=== PATIENT | male | born 1970 | race Caucasian/White ===

== ENCOUNTER 2020-04-26 17:38 | Emergency (ER) | payer BC, OTHER ==
--- NOTE | 2020-04-26 18:29 | RAD REPORT ---
EXAM DESCRIPTION: RAD - Chest Pa And Lat (2 Views) - 04/26/2020 6:21 pm CLINICAL HISTORY: DYSPNEA Chest pain. COMPARISON: No comparisons FINDINGS: The lungs are clear. The heart is normal in size. No displaced fractures. IMPRESSION: No acute or concerning finding suspected.
[2020-04-26] MEDS ORDERED: ALBUTEROL 2.5 MG/3 ML NEB SOL ONE (18:51)
--- NOTE | 2020-04-26 20:51 | ER ---
Nurse's Notes [facility] Name: Isiah Hightower Age: 49 yrs Sex: Male : 1970 Arrival Date: 04/26/2020 Time: 17:38 Bed 15 Private MD: Diagnosis: Respiratory conditions due to inhalation of chemicals, gases, fumes and vapors Presentation: 04/26 17:44 Chief complaint: Patient states: Poured sulfuric acid down a drain at 1700 today. He ll1 inhaled the substance. SOB and cough since. Coronavirus screen: Client denies travel out of the [place] in the last 14 days. At this time, the client does not indicate any symptoms associated with coronavirus-19. Ebola Screen: Patient denies travel to an Ebola-affected area in the 21 days before illness onset. Initial Sepsis Screen: Does the patient meet any 2 criteria? No. Patient's initial sepsis screen is negative. Risk Assessment: Do you want to hurt yourself or someone else? Patient reports no desire to harm self or others. Onset of symptoms was April 26, 2020. 17:44 Method Of Arrival: Ambulatory 1 17:44 Acuity: AMIRAH 3 ll1 19:51 Initial Sepsis Screen: Does the patient have a suspected source of infection? No. lp1 Patient's initial sepsis screen is negative. Historical: - Allergies: 17:46 Hydrocodone-Acetaminophen; ll1 - PSHx: 17:46 None; ll1 - Immunization history:: Flu vaccine is up to date. - Social history:: Smoking status: Patient denies any tobacco usage or history of. Patient/guardian denies using alcohol, street drugs, tobacco products. Screenin:47 Abuse screen: Denies threats or abuse. Nutritional screening: No deficits noted. tw2 Tuberculosis screening: No symptoms or risk factors identified. Fall Risk None identified. Assessment: 18:40 General: Appears in no apparent distress. well groomed, Behavior is calm, cooperative, tw2 appropriate for age. Pain: Denies pain. Neuro: Level of Consciousness is awake, alert, obeys commands, Oriented to person, place, time, situation. Cardiovascular: Heart tones S1 S2 Patient's skin is warm and dry. Rhythm is regular. Respiratory: Reports "its like a tickle down deeper than the back of my throat when i take a deep breath" Airway is patent Respiratory effort is even, unlabored, Respiratory pattern is regular, symmetrical, Breath sounds are clear bilaterally. GI: No signs and/or symptoms were reported involving the gastrointestinal system. Abdomen is flat, Bowel sounds present X 4 quads. : No signs and/or symptoms were reported regarding the genitourinary system. EENT: No signs and/or symptoms were reported regarding the EENT system. Derm: No signs and/or symptoms reported regarding the dermatologic system. Musculoskeletal: Range of motion: intact in all extremities. 19:15 Reassessment: Patient appears in no apparent distress at this time. Patient is alert, lp1 oriented x 3, equal unlabored respirations, skin warm/dry/pink. Patient states minimal tightness in chest with breathing Patient states feeling better. Respiratory: Respiratory effort is even, unlabored, Respiratory pattern is regular, Breath sounds are clear bilaterally. 21:08 Reassessment: Patient appears in no apparent distress at this time. Patient is alert, lp1 oriented x 3, equal unlabored respirations, skin warm/dry/pink. Patient denies pain at this time. Patient states feeling better. Patient states symptoms have improved. Vital Signs: 17:44 BP 157 / 88; Pulse 79; Resp 18; Temp 98.1; Pulse Ox 96% on R/A; Weight 108.86 kg; ll1 Height 6 ft. 1 in. (185.42 cm); Pain 4/10; 18:47 BP 139 / 80; Pulse 81; Resp 18; Pulse Ox 100% on Nebulizer Mask; tw2 19:15 BP 137 / 85; Pulse 85; Resp 18; Pulse Ox 97% on R/A; lp1 20:30 BP 133 / 82; Pulse 64; Resp 18; Pulse Ox 97% on R/A; lp1 17:44 Body Mass Index 31.66 (108.86 kg, 185.42 cm) ll1 ED Course: 17:38 Patient arrived in ED. ds1 17:46 Triage completed. ll1 17:46 Arm band placed on. ll1 18:02 Isamar Nguyen FNP-C [facility]. kb 18:02 Vinny Bragg MD is Attending Physician. kb 18:35 Ilana Young RN is Primary Nurse. tw2 18:35 Bed in low position. Call light in reach. Placed in gown. Pulse ox on. NIBP on. tw2 18:36 posion control contacted. Observation for 4 hours. Symptomatic treatment as needed (prn ll1 oxygen, breathing treatments, steroids). 19:00 Report given to ORTEGA Antony. tw2 19:51 No provider procedures requiring assistance completed. lp1 21:09 Patient did not have IV access during this emergency room visit. lp1 Administered Medications: 18:45 Drug: Albuterol 2.5 mg Route: Inhalation; tw2 Outcome: 20:50 Discharge ordered by . shirley 21:09 Discharged to home ambulatory. lp1 21:09 Condition: good 21:09 Discharge instructions given to patient, Instructed on discharge instructions, follow up and referral plans. Demonstrated understanding of instructions, follow-up care. 21:09 Patient left the ED. lp1 Signatures: Isamar Nguyen, RASPBERRY CHECKER-C RASPBERRY CHECKER-Jebb Margie Nickerson ds1 Cassia Ponce, RN RN lp1 Ilana Young RN RN tw2 Denise Marie RN RN ll1
--- NOTE | 2020-04-26 20:51 | EDPHYS ---
Physician Documentation [facility] Name: Isiah Hightower Age: 49 yrs Sex: Male : 1970 Arrival Date: 04/26/2020 Time: 17:38 Bed 15 Private MD: ED Physician Vinny Bragg HPI: 04/26 19:01 This 49 yrs old Male presents to ER via Ambulatory with complaints of kb Breathing Difficulty. 19:01 The patient has shortness of breath at rest. Onset: The symptoms/episode began/occurred kb at 17:00. Duration: The symptoms are continuous. The patient's shortness of breath has no apparent modifying factors. Associated signs and symptoms: Pertinent positives: chest pain. Severity of symptoms: At their worst the symptoms were moderate in the emergency department the symptoms are unchanged. The patient has not experienced similar symptoms in the past. The patient has not recently seen a physician. Pt states he poured out sulfuric acid and unintentionally inhaled the fumes. Has had cough, dyspnea and tightness since then. . Historical: - Allergies: 17:46 Hydrocodone-Acetaminophen; ll1 - PSHx: 17:46 None; ll1 - Immunization history:: Flu vaccine is up to date. - Social history:: Smoking status: Patient denies any tobacco usage or history of. Patient/guardian denies using alcohol, street drugs, tobacco products. ROS: 18:59 Constitutional: Negative for fever, chills, and weight loss, Neck: Negative for injury, kb pain, and swelling, Cardiovascular: Negative for chest pain, palpitations, and edema, Abdomen/GI: Negative for abdominal pain, nausea, vomiting, diarrhea, and constipation, Back: Negative for injury and pain, MS/Extremity: Negative for injury and deformity, Skin: Negative for injury, rash, and discoloration, Neuro: Negative for headache, weakness, numbness, tingling, and seizure. 18:59 Respiratory: Positive for cough, shortness of breath, Negative for dyspnea on exertion, hemoptysis, orthopnea, pleurisy, sputum production, wheezing. Exam: 18:59 Constitutional: This is a well developed, well nourished patient who is awake, alert, kb and in no acute distress. Head/Face: Normocephalic, atraumatic. Chest/axilla: Normal chest wall appearance and motion. Nontender with no deformity. No lesions are appreciated. Cardiovascular: Regular rate and rhythm with a normal S1 and S2. No gallops, murmurs, or rubs. Normal PMI, no JVD. No pulse deficits. Respiratory: Lungs have equal breath sounds bilaterally, clear to auscultation and percussion. No rales, rhonchi or wheezes noted. No increased work of breathing, no retractions or nasal flaring. Abdomen/GI: Soft, non-tender, with normal bowel sounds. No distension or tympany. No guarding or rebound. No evidence of tenderness throughout. Skin: Warm, dry with normal turgor. Normal color with no rashes, no lesions, and no evidence of cellulitis. MS/ Extremity: Pulses equal, no cyanosis. Neurovascular intact. Full, normal range of motion. Neuro: Awake and alert, GCS 15, oriented to person, place, time, and situation. Cranial nerves II-XII grossly intact. Motor strength 5/5 in all extremities. Sensory grossly intact. Cerebellar exam normal. Normal gait. Vital Signs: 17:44 BP 157 / 88; Pulse 79; Resp 18; Temp 98.1; Pulse Ox 96% on R/A; Weight 108.86 kg; ll1 Height 6 ft. 1 in. (185.42 cm); Pain 4/10; 18:47 BP 139 / 80; Pulse 81; Resp 18; Pulse Ox 100% on Nebulizer Mask; tw2 19:15 BP 137 / 85; Pulse 85; Resp 18; Pulse Ox 97% on R/A; lp1 20:30 BP 133 / 82; Pulse 64; Resp 18; Pulse Ox 97% on R/A; lp1 17:44 Body Mass Index 31.66 (108.86 kg, 185.42 cm) ll1 MDM: 18:34 Patient medically screened. kb 19:00 Data reviewed: vital signs, nurses notes. Data interpreted: Pulse oximetry: on room air kb is 100 %. Interpretation: normal. ED course: Poison control recommends obs for 4 hours and supplemental O2 as needed. . 19:55 Counseling: I had a detailed discussion with the patient and/or guardian regarding: the kb historical points, exam findings, and any diagnostic results supporting the discharge/admit diagnosis, radiology results, the need for outpatient follow up, a family practitioner, to return to the emergency department if symptoms worsen or persist or if there are any questions or concerns that arise at home. 04/26 18:03 Order name: Chest Pa And Lat (2 Views) XRAY kb 04/26 18:31 Order name: RAD; Complete Time: 18:32 EDMS 04/26 18:03 Order name: Misc. Order: contact poison control for recommendation; Complete Time: 18:35kb Administered Medications: 18:45 Drug: Albuterol 2.5 mg Route: Inhalation; tw2 Disposition: 04/27 07:55 Co-signature as Attending Physician, Vinny Bragg MD I agree with the assessment and kdr plan of care. Disposition: 04/26/20 20:50 Discharged to Home. Impression: Respiratory conditions due to inhalation of chemicals, gases, fumes and vapors. - Condition is Stable. - Discharge Instructions: Chemical Inhalation Injury, Adult. - Medication Reconciliation Form, Thank You Letter, Antibiotic Education, Prescription Opioid Use form. - Follow up: Emergency Department; When: As needed; Reason: Worsening of condition. Follow up: Private Physician; When: 2 - 3 days; Reason: Recheck today's complaints, Continuance of care, Re-evaluation by your physician. Signatures: Dispatcher [employer] EDMS Isamar Nguyen, ELECTRON GUN ASSEMBLER-C ELECTRON GUN ASSEMBLER-Vinny Rutherford MD MD kdr Cassia Ponce, RN RN lp1 Ilana Young RN RN tw2 Denise Marie, RN RN ll1 Corrections: (The following items were deleted from the chart) 04/26 21:09 20:50 04/26/2020 20:50 Discharged to Home. Impression: Respiratory conditions due to lp1 inhalation of chemicals, gases, fumes and vapors. Condition is Stable. Discharge Instructions: Chemical Inhalation Injury, Adult. Forms are Medication Reconciliation Form, Thank You Letter, Antibiotic Education, Prescription Opioid Use. Follow up: Emergency Department; When: As needed; Reason: Worsening of condition. Follow up: Private Physician; When: 2 - 3 days; Reason: Recheck today's complaints, Continuance of care, Re-evaluation by your physician. kb
[2020-04-26 21:18] VITALS: BP 133/82; TEMP 98.1; O2SAT 97
== END 2020-04-26 21:09 | disposition home or self-care (01) ==
LOC: ER 17:38
DX: R06.02 Shortness of breath (principal); T54.2X1A Toxic effect of corrosive acids and acid-like substances, accidental (unintentional), initial encounter; Z88.5 Allergy status to narcotic agent
CPT/HCPCS: 71046; 99284

== ENCOUNTER 2021-07-26 02:26 | Observation (INO) | payer OTHER ==
[2021-07-26] MEDS ORDERED: ASPIRIN 81 MG CHEWABLE TABLET ONE ×2 (02:41→02:45)
[2021-07-26] MEDS ORDERED: NA CHLORIDE 0.9% 1,000 ML ONE ×2 (02:42→02:45)
[2021-07-26] MEDS ORDERED: FAMOTIDINE 20 MG/2 ML VIAL IV ONE ×2 (02:42→02:45)
[2021-07-26] MEDS ORDERED: METOPROLOL TAR 25 MG TAB ONE (02:52)
[2021-07-26] MEDS ORDERED: ENOXAPARIN 100 MG/ML SYR SQ ONE (02:53)
[2021-07-26 03:00] LABS: Absolute Lymphocytes (CBC) 2.3 K/uL (0.7-4.9); Basophils % 0.8 % (0-1.3); Hematocrit 43.2 % (39.6-49.0); Lymphocytes % 31.1 % (15.3-44.8); RBC Red Blood Cell Count 4.73 M/uL (4.33-5.43)
[2021-07-26 03:07] LABS: Protime INR 0.99
[2021-07-26 03:14] LABS: ALT/SGPT 22 U/L (12-78); AST/SGOT 17 U/L (15-37); Albumin 3.9 g/dL (3.4-5.0); Alkaline Phosphatase 107 U/L (45-117); BUN Blood Urea Nitrogen 17 mg/dL (7-18); Bicarbonate 23 mmol/L (21-32); Bilirubin Direct < 0.1 mg/dL (0-0.2); Bilirubin Total 0.3 mg/dL (0.2-1.0); Glucose Level 104 mg/dL (74-106); Magnesium 2.2 mg/dL (1.8-2.4); NT PRO-BNP 41 pg/mL (<125); Potassium 3.7 mmol/L (3.5-5.1); Protein, Total 7.3 g/dL (6.4-8.2); Sodium Level 143 mmol/L (136-145); Troponin (Emerg Dept Use Only) < 0.02 ng/mL (0.0-0.045)
--- NOTE | 2021-07-26 03:17 | EDPHYS ---
Physician Documentation [facility] Name: Isiah Hightower Age: 50 yrs Sex: Male : 1970 Arrival Date: 07/26/2021 Time: 02:30 Bed 5 Private MD: CHANTEL Physician Todd Hayes HPI: 07/26 02:39 This 50 yrs old Male presents to ER via Unassigned with complaints of chest carlos pain, left sided. 02:39 The patient or guardian reports chest pain that is located primarily in the anterior carlos chest wall, left. Onset: this morning. The pain radiates to the left arm. Associated signs and symptoms: Pertinent positives: palpitations. The chest pain is described as a pressure. Duration: The patient or guardian reports multiple episodes, that are intermittent. Modifying factors: The symptoms are alleviated by nothing. the symptoms are aggravated by nothing. Severity of pain: At its worst the pain was mild in the emergency department the pain is unchanged. The patient has experienced similar episodes in the past, a few times. Historical: - Allergies: 02:43 Hydrocodone-Acetaminophen; lh3 - PMHx: 02:43 Chronic back pain; lh3 - PSHx: 02:43 None; lh3 - Immunization history:: Client reports receiving the 2nd dose of the Covid vaccine, Date received: October 2020. - Social history:: Smoking status: Patient denies any tobacco usage or history of. Patient/guardian denies using. - Family history:: not pertinent. ROS: 02:39 Constitutional: Negative for fever, chills, and weight loss, Eyes: Negative for injury, carlos pain, redness, and discharge, ENT: Negative for injury, pain, and discharge, Neck: Negative for injury, pain, and swelling, Respiratory: Negative for shortness of breath, cough, wheezing, and pleuritic chest pain, Abdomen/GI: Negative for abdominal pain, nausea, vomiting, diarrhea, and constipation, Back: Negative for injury and pain, : Negative for injury, bleeding, discharge, and swelling, MS/Extremity: Negative for injury and deformity, Skin: Negative for injury, rash, and discoloration, Neuro: Negative for headache, weakness, numbness, tingling, and seizure, Psych: Negative for depression, anxiety, suicide ideation, homicidal ideation, and hallucinations, Allergy/Immunology: Negative for hives, rash, and allergies, Endocrine: Negative for neck swelling, polydipsia, polyuria, polyphagia, and marked weight changes, Hematologic/Lymphatic: Negative for swollen nodes, abnormal bleeding, and unusual bruising. 02:39 Cardiovascular: Positive for chest pain. Exam: 02:39 Constitutional: This is a well developed, well nourished patient who is awake, alert, carlos and in no acute distress. Head/Face: Normocephalic, atraumatic. Eyes: Pupils equal round and reactive to light, extra-ocular motions intact. Lids and lashes normal. Conjunctiva and sclera are non-icteric and not injected. Cornea within normal limits. Periorbital areas with no swelling, redness, or edema. ENT: Nares patent. No nasal discharge, no septal abnormalities noted. Tympanic membranes are normal and external auditory canals are clear. Oropharynx with no redness, swelling, or masses, exudates, or evidence of obstruction, uvula midline. Mucous membranes moist. Neck: Trachea midline, no thyromegaly or masses palpated, and no cervical lymphadenopathy. Supple, full range of motion without nuchal rigidity, or vertebral point tenderness. No Meningismus. Chest/axilla: Normal chest wall appearance and motion. Nontender with no deformity. No lesions are appreciated. Cardiovascular: Regular rate and rhythm with a normal S1 and S2. No gallops, murmurs, or rubs. Normal PMI, no JVD. No pulse deficits. Respiratory: Lungs have equal breath sounds bilaterally, clear to auscultation and percussion. No rales, rhonchi or wheezes noted. No increased work of breathing, no retractions or nasal flaring. Abdomen/GI: Soft, non-tender, with normal bowel sounds. No distension or tympany. No guarding or rebound. No evidence of tenderness throughout. Back: No spinal tenderness. No costovertebral tenderness. Full range of motion. Skin: Warm, dry with normal turgor. Normal color with no rashes, no lesions, and no evidence of cellulitis. MS/ Extremity: Pulses equal, no cyanosis. Neurovascular intact. Full, normal range of motion. Neuro: Awake and alert, GCS 15, oriented to person, place, time, and situation. Cranial nerves II-XII grossly intact. Motor strength 5/5 in all extremities. Sensory grossly intact. Cerebellar exam normal. Normal gait. Psych: Awake, alert, with orientation to person, place and time. Behavior, mood, and affect are within normal limits. 02:39 Cardiovascular: Rate: normal, Rhythm: regular, Pulses: Pulses are 4+ in bilateral radial, brachial, femoral, popliteal, posterior tibial and and dorsalis pedis arteries.. Heart sounds: normal. 02:39 ECG was reviewed by the Attending Physician. Vital Signs: 02:40 BP 153 / 98; Pulse 75; Resp 15; Temp 97.5(O); Pulse Ox 99% on R/A; Weight 104.33 kg; lh3 Height 6 ft. 1 in. (185.42 cm); 03:45 BP 118 / 83; Pulse 68; Resp 18; Temp 98.0(O); Pulse Ox 98% on R/A; Pain 3/10; kc4 04:31 BP 124 / 86; Pulse 60; Resp 18; Temp 98.0(O); Pulse Ox 98% on R/A; Pain 0/10; kc4 02:40 Body Mass Index 30.34 (104.33 kg, 185.42 cm) lh3 MDM: 02:30 Patient medically screened. carlos 02:44 Differential diagnosis: abnormal EKG, coronary artery disease costochondritis, carlos gastroesophageal reflux disease (GERD), pancreatitis, pneumonia, pulmonary embolus, stable angina, unstable angina. HEART Score: History: Slightly Suspicious (0), ECG: Normal (0), Age: > 45 and < 65 years (1), Risk Factors: No Risk Factors Known (0), Troponin: < or = 1 x Normal Limit (0), Total Score = 1. The patient was given aspirin in the Emergency Department. The patient's deep vein thrombosis risk score was calculated as follows: Total Score: 0. This patient was found to be at low risk for a deep vein thrombosis by using the Well's assessment criteria. The patient's pulmonary embolism risk score was calculated as follows: Total Score: 0-2 points. This patient was found to be at low risk for a pulmonary embolism by using the Well's assessment criteria. NICK Risk Score: not applicable. Data reviewed: vital signs, nurses notes, lab test result(s), EKG, radiologic studies, CT scan. Data interpreted: area director: rate is 75 beats/min, rhythm is regular, Pulse oximetry: on room air. Test interpretation: by ED physician or midlevel provider: ECG, plain radiologic studies. Counseling: I had a detailed discussion with the patient and/or guardian regarding: the historical points, exam findings, and any diagnostic results supporting the discharge/admit diagnosis, lab results, radiology results, the need for further work-up and treatment in the hospital. 07/26 02:39 Order name: Basic Metabolic Panel [facility] 07/26 02:39 Order name: CBC with Diff; Complete Time: 03:14 [facility] 07/26 02:39 Order name: LFT's; Complete Time: 03:19 [facility] 07/26 02:39 Order name: Magnesium; Complete Time: 03:19 [facility] 07/26 02:39 Order name: NT PRO-BNP; Complete Time: 03:19 [facility] 07/26 02:39 Order name: PT-INR; Complete Time: 03:14 [facility] 07/26 02:39 Order name: Troponin (emerg Dept Use Only); Complete Time: 03:19 [facility] 07/26 02:39 Order name: XRAY Chest (1 view) [facility] 07/26 02:39 Order name: D-Dimer; Complete Time: 03:14 [facility] 07/26 02:39 Order name: Basic Metabolic Panel; Complete Time: 03:19 EDMS 07/26 03:19 Order name: CT Chest For PE Angio [facility] 07/26 02:39 Order name: EKG; Complete Time: 02:40 [facility] 07/26 02:39 Order name: Cardiac monitoring; Complete Time: 02:39 [facility] 07/26 02:39 Order name: EKG - Nurse/Tech; Complete Time: 02:40 [facility] 07/26 02:39 Order name: IV Saline Lock; Complete Time: 02:40 [facility] 07/26 02:39 Order name: Labs collected and sent; Complete Time: 02:40 [facility] 07/26 02:39 Order name: O2 Per Protocol; Complete Time: 02:40 [facility] 07/26 02:39 Order name: O2 Sat Monitoring; Complete Time: 02:40 [facility] 07/26 03:32 Order name: CONS Physician Consult EDMS EC:39 Rate is 73 beats/min. Rhythm is regular. QRS [place] is Normal. VT interval is normal. QRS carlos interval is normal. QT interval is normal. No Q waves. T waves are Normal. No ST changes noted. Clinical impression: NSR w/ Non-specific ST/T Changes, LVH, and No evidence of ischemia. Interpreted by me. Reviewed by me. Administered Medications: 02:49 Drug: Aspirin Chewable Tablet 324 mg Route: PO; kc4 04:33 Follow up: Response: No adverse reaction kc4 02:50 Drug: Pepcid (famotidine) 20 mg Route: IVP; Site: right hand; kc4 04:33 Follow up: Response: No adverse reaction kc4 02:50 Drug: NS 0.9% 1000 ml Route: IV; Rate: 125 ml/hr; Site: right hand; kc4 02:56 Drug: Lovenox (enoxaparin) 100 mg Route: Sub-Q; Site: abdomen; mr2 04:29 Follow up: Response: No adverse reaction kc4 02:57 Drug: Lopressor (metoprolol TARTRATE)) 25 mg Route: PO; mr2 04:30 Follow up: Response: No adverse reaction kc4 Disposition Summary: 07/26/21 03:16 Hospitalization Ordered Hospitalization Status: Observation carlos Provider: Wilton Wall cha Location: Telemetry/MedSurg (observation) carlos Condition: Stable carlos Problem: new carlos Symptoms: have improved carlos Bed/Room Type: Standard [facility] Room Assignment: 228(07/26/21 04:31) mw Diagnosis - Chest pain, unspecified carlos - Essential (primary) hypertension carlos - Palpitations carlos - Pulmonary embolism without acute cor pulmonale carlos Forms: - Medication Reconciliation Form carlos - SBAR form carlos Signatures: Dispatcher [employer] EDGavi De Guzman RN RN Todd Menon MD MD cha Hardee, Latisha, RN RN 3 Viviana Manuel 4 Jsoe Klein RN RN mr2 Corrections: (The following items were deleted from the chart) 04: 03:16 carlos sneed
--- NOTE | 2021-07-26 03:17 | ER ---
Nurse's Notes [facility] Name: Isiah Hightower Age: 50 yrs Sex: Male : 1970 Arrival Date: 07/26/2021 Time: 02:30 Bed 5 Private MD: Diagnosis: Chest pain, unspecified;Essential (primary) hypertension;Palpitations;Pulmonary embolism without acute cor pulmonale Presentation: 07/26 02:40 Chief complaint: EMS states: that patient was seen at [facility] yesterday for chest pain, lh3 and was not told anything. All lab work was negative 12 lead normal sinus and VSS. Patient has appointment with PCP today and watch inspector final movement next week. Coronavirus screen: Vaccine status: Patient reports receiving the 2nd dose of the covid vaccine. Date July 2021. Ebola Screen: Patient negative for fever greater than or equal to 101.5 degrees Fahrenheit, and additional compatible Ebola Virus Disease symptoms Patient denies exposure to infectious person. Patient denies travel to an Ebola-affected area in the 21 days before illness onset. No symptoms or risks identified at this time. Initial Sepsis Screen: Does the patient meet any 2 criteria? No. Patient's initial sepsis screen is negative. Does the patient have a suspected source of infection? No. Patient's initial sepsis screen is negative. Risk Assessment: Do you want to hurt yourself or someone else? Patient reports no desire to harm self or others. Onset of symptoms was July 26, 2021. Care prior to arrival: IV initiated. 20 GA, in the right hand. 02:40 Method Of Arrival: EMS lh3 02:40 Acuity: AMIRAH 3 lh3 Triage Assessment: 02:43 General: Appears in no apparent distress. Behavior is calm, cooperative, appropriate lh3 for age. Pain: Complains of pain in anterior aspect of left upper chest Pain does not radiate. Pain began 1 hour ago. Is continuous, Alleviated by. Historical: - Allergies: 02:43 Hydrocodone-Acetaminophen; lh3 - PMHx: 02:43 Chronic back pain; lh3 - PSHx: 02:43 None; lh3 - Immunization history:: Client reports receiving the 2nd dose of the Covid vaccine, Date received: October 2020. - Social history:: Smoking status: Patient denies any tobacco usage or history of. Patient/guardian denies using. - Family history:: not pertinent. Screenin:45 Abuse screen: Denies threats or abuse. Denies injuries from another. Nutritional 3 screening: No deficits noted. Tuberculosis screening: No symptoms or risk factors identified. Fall Risk IV access (20 points). Assessment: 02:45 General: Appears in no apparent distress. Behavior is calm, cooperative, appropriate lh3 for age, Smells of. Pain: Complains of pain in chest and anterior aspect of left upper chest Pain does not radiate. Pain level that patient reports is acceptable is 7 out of 10 on a pain scale. Vital Signs: 02:40 BP 153 / 98; Pulse 75; Resp 15; Temp 97.5(O); Pulse Ox 99% on R/A; Weight 104.33 kg; 3 Height 6 ft. 1 in. (185.42 cm); 03:45 BP 118 / 83; Pulse 68; Resp 18; Temp 98.0(O); Pulse Ox 98% on R/A; Pain 3/10; kc4 04:31 BP 124 / 86; Pulse 60; Resp 18; Temp 98.0(O); Pulse Ox 98% on R/A; Pain 0/10; kc4 02:40 Body Mass Index 30.34 (104.33 kg, 185.42 cm) [facility] ED Course: 02:30 Patient arrived in ED. carlos 02:30 Todd Hayes MD is Attending Physician. [facility] 02:39 Viviana Manuel is Primary Nurse. 4 02:43 Triage completed. 3 02:43 Arm band placed on right wrist. EKG completed in triage. Results shown to MD. 3 02:45 Patient has correct armband on for positive identification. Placed in gown. Bed in low lh3 position. Call light in reach. Side rails up X 1. Side rails up X2. Door closed. Noise minimized. Visitors limited. Warm blanket given. Verbal reassurance given. 02:45 No provider procedures requiring assistance completed. Maintain EMS IV. Dressing lh3 intact. Good blood return noted. Site clean \T\ dry. 02:51 Basic Metabolic Panel Sent. kc4 02:52 D-Dimer Sent. kc4 02:52 Basic Metabolic Panel Sent. kc4 02:52 XRAY Chest (1 view) Sent. kc4 02:52 CBC with Diff Sent. kc4 02:52 LFT's Sent. kc4 02:52 Magnesium Sent. kc4 02:52 NT PRO-BNP Sent. kc4 02:53 PT-INR Sent. kc4 02:53 Troponin (emerg Dept Use Only) Sent. kc4 03:15 Wilton Wall is Hospitalizing Provider. carlos 03:29 XRAY Chest (1 view) In Process Unspecified. EDMS 03:45 Inserted saline lock: 20 gauge in right antecubital area, using aseptic technique. kc4 04:44 Patient admitted, IV remains in place. kc4 05:22 Primary Nurse role handed off by Viviana Manuel tt3 Administered Medications: 02:49 Drug: Aspirin Chewable Tablet 324 mg Route: PO; kc4 04:33 Follow up: Response: No adverse reaction kc4 02:50 Drug: Pepcid (famotidine) 20 mg Route: IVP; Site: right hand; kc4 04:33 Follow up: Response: No adverse reaction kc4 02:50 Drug: NS 0.9% 1000 ml Route: IV; Rate: 125 ml/hr; Site: right hand; kc4 02:56 Drug: Lovenox (enoxaparin) 100 mg Route: Sub-Q; Site: abdomen; mr2 04:29 Follow up: Response: No adverse reaction kc4 02:57 Drug: Lopressor (metoprolol TARTRATE)) 25 mg Route: PO; mr2 04:30 Follow up: Response: No adverse reaction kc4 Outcome: 03:16 Decision to Hospitalize by Provider. carlos 04:43 Admitted to Med/surg accompanied by nurse, via stretcher, room 228, on monitor, with kc4 chart, Report called to Hoa VIVAS 04:43 Condition: stable 04:43 Instructed on the need for admit. 04:51 Patient left the ED. kc4 05:30 Patient left the ED. tt3 Signatures: Dispatcher [employer] EDMS Todd Hayes MD MD cha Trim, Tyler tt3 Katey Taylor, RN RN 3 Viviana Manuel kc4 Jose Klein RN RN mr2
--- NOTE | 2021-07-26 04:07 | P.HP ---
Certification for Inpatient Patient admitted to: Observation With expected LOS: <2 Midnights Patient will require the following post-hospital care: None Practitioner: I am a practitioner with admitting privileges, knowledge of patient current condition, hospital course, and medical plan of care. Services: Services provided to patient in accordance with Admission requirements found in Title 42 Section 412.3 of the Code of Federal Regulations Patient History Date of Service: 07/26/21 Reason for admission: chest pain History of Present Illness: Mr. Hightower is a 50 yo M who presents with 10/10 left sided chest pressure and tightness beginning today while in bed. Pain has now improved to 3/10. These episodes started last week and usually last for about an hour. Reports SOB, lightheadness, and vision changes. Denies nausea, vomiting, diaphoresis. Discharged from [facility] yesterday for chest pain rule out, scheduled to follow up with cardiology next week. Trop negative. Allergies hydrocodone [Hydrocodone] Allergy (Intermediate, Verified 10/07/12 06:39) Itching - Past Medical/Surgical History Past Medical History: Patient denies medical history Past Surgical History: Patient denies surgical history - Family History Family History: Reviewed- Non-Contributory - Social History Smoking Status: Never smoker Alcohol use: No CD- Drugs: No Caffeine use: Yes Place of Residence: Home Review of Systems 10-point ROS is otherwise unremarkable Respiratory: Shortness of Breath Cardiovascular: Chest Pain, Light Headedness Physical Examination - Physical Exam General: Alert, In no apparent distress HEENT: Atraumatic, PERRLA, Mucous membr. moist/pink, EOMI, Sclerae nonicteric Neck: Supple, 2+ carotid pulse no bruit, No LAD, Without JVD or thyroid abnormality Respiratory: Clear to auscultation bilaterally, Normal air movement Cardiovascular: Regular rate/rhythm, Normal S1 S2 Gastrointestinal: Normal bowel sounds, No tenderness Musculoskeletal: No tenderness Integumentary: No rashes Neurological: Normal gait, Normal speech, Normal strength at 5/5 x4 extr, Normal tone, Normal affect Lymphatics: No axilla or inguinal lymphadenopathy - Studies Laboratory Data (last 24 hrs) 07/26/21 02:39: PT 11.4, INR 0.99 07/26/21 02:39: WBC 7.60, Hgb 14.4, Hct 43.2, Plt Count 213 07/26/21 02:39: Sodium 143, Potassium 3.7, BUN 17, Creatinine 1.25, Glucose 104, Magnesium 2.2, Total Bilirubin 0.3, AST 17, ALT 22, Alkaline Phosphatase 107 Assessment and Plan - Problems (Diagnosis) (1) Chest pain Current Visit: Yes Status: Acute Qualifiers: Chest pain type: unspecified Qualified Code(s): R07.9 - Chest pain, unspecified - Plan cardiology consulted, on tele trend troponins, repeat ekg daily asa, beta mariana, statin, prn nitroglycerin and morphine thyroid and lipid panel pending monitor blood pressure, currently stable DVT ppx Discharge Plan: Home Plan to discharge in: 24 Hours - Advance Directives Does patient have a Living Will: No Does patient have a Durable POA for Healthcare: No - Code Status/Comfort Care Code Status Assessed: Yes (full code ) Critical Care: No Time Spent Managing Pts Care (In Minutes): 70
[2021-07-26 04:58] VITALS: BMI 30.3
[2021-07-26] MEDS ORDERED: HYDRALAZINE HCL 20 MG/ML VIAL IV PRN (05:11)
[2021-07-26] MEDS ORDERED: ONDANSETRON 4 MG/2 ML VIAL IV PRN (05:11)
[2021-07-26] MEDS ORDERED: ACETAMINOPHEN 500 MG TAB PO PRN (05:11)
[2021-07-26] MEDS ORDERED: POTASSIUM 25 MEQ EFFERV TAB PO ONE (05:47)
[2021-07-26 07:18] LABS: HDL Cholesterol 44 mg/dL (40-60); LDL Cholesterol, Calculated 90 (<130); Troponin I < 0.02 ng/mL (0.0-0.045)
--- NOTE | 2021-07-26 08:27 | RAD REPORT ---
EXAM DESCRIPTION: US - Extrem Venous W Compress Jeremy - 07/26/2021 6:02 am CLINICAL HISTORY: r/o DVT Bilateral leg edema and swelling. COMPARISON: No comparisons TECHNIQUE: Real-time sonographic interrogation of the left and right lower extremity deep venous sys tems was performed. FINDINGS: Normal compressibility, flow augmentation, phasic flow and spontaneous flow is identified in both the left and right lower extremity deep venous systems. IMPRESSION: No sonographic evidence of left or right lower extremity deep venous thrombosis.
--- NOTE | 2021-07-26 08:28 | RAD REPORT ---
EXAM DESCRIPTION: ADDENDUM #1 THIS REPORT CONTAINS FINDINGS THAT MAY BE CRITICAL TO PATIENT CARE: The findings were verbally discu ssed via telephone conference with MACIEL Mays 4:46 AM central time July 26, 2021. The resu lts were acknowledged and understood. Electronically signed by: Asmita Baig MD 07/26/2021 4:47 AM CDT End of Addendum EXAM: CT Angiography Chest With Intravenous Contrast CLINICAL HISTORY: The patient is 50 years old and is Male; CHEST PAIN TECHNIQUE: Axial computed tomographic angiography images of the chest with intravenous contrast. S agittal and coronal reformatted images were created and reviewed. This CT exam was performed using one or more of the following dose reduction techniques: automated exposure control, adjustment of t he mA and/or kV according to patient size, and/or use of iterative reconstruction technique. MIP re constructed images were created and reviewed. COMPARISON: No relevant prior studies available. FINDINGS: Pulmonary arteries: Small subsegmental PE anterior left upper lobe. Aorta: No acute findings. No thoracic aortic aneurysm. Lungs: No pulmonary consolidation or groundglass opacities to suggest pneumonia. Pleural space: No pleural effusion or pneumothorax. Heart: Unremarkable. No cardiomegaly. No significant pericardial effusion. No evidence of RV dysfunction. Bones/joints: No acute fracture visualized. No dislocation. Soft tissues: Unremarkable. Lymph nodes: Unremarkable. No enlarged lymph nodes. IMPRESSION: Small subsegmental PE anterior left upper lobe. Electronically signed by: Asmita Baig MD 07/26/2021 4:39 AM CDT Due to temporary technical issues with the PACS/Fluency reporting system, reports are being signed by the in house radiologist without review as a courtesy to ensure prompt reporting. The interpreting r adiologist is fully responsible for the content of the report.
--- NOTE | 2021-07-26 08:34 | RAD REPORT ---
EXAM DESCRIPTION: RAD - Chest Single View - 07/26/2021 3:29 am CLINICAL HISTORY: CHEST PAIN Chest pain. COMPARISON: Chest Pa And Lat (2 Views) dated 04/26/2020 FINDINGS: Portable technique limits examination quality. The lungs are grossly clear. The heart is normal in size. No displaced fractures. IMPRESSION: No acute intrathoracic process suspected.
[2021-07-26] MEDS: APIXABAN 5 MG TABLET PO SCH ×2 (14:42→20:04)
--- NOTE | 2021-07-26 15:42 | P.PN ---
Date of Service: 07/26/21 Patient seen and examined. Patient is complaining of intermittent chest pressure/chest pain. Troponin trended negative. EKG unremarkable. I ordered a treadmill stress test but I was told there was no staff available for that stress test. Repeat troponin and EKG. Cardiology consult. Continue Eliquis for newly diagnosed PE.
[2021-07-27 06:14] LABS: Potassium 4.2 mmol/L (3.5-5.1)
[2021-07-27] MEDS: APIXABAN 5 MG TABLET PO SCH (09:23)
[2021-07-27 09:55] VITALS: O2SAT 96
[2021-07-27 11:54] VITALS: BP 142/75; TEMP 98.6
--- NOTE | 2021-07-27 12:58 | P.DS ---
Admission Date: 07/26/21 Discharge Date: 07/27/21 Disposition: ROUTINE DISCHARGE Discharge Condition: FAIR Reason for Admission: chest pain - Problems (1) Pulmonary embolism Status: Acute (2) Essential hypertension Status: Acute (3) LV hypertrophy, hypertensive Status: Acute (4) Chest pain Status: Acute Qualifiers: Chest pain type: unspecified Qualified Code(s): R07.9 - Chest pain, unspecified Brief History of Present Illness: Mr. Hightower is a 50 yo M who presents with 10/10 left sided chest pressure and tightness beginning today while in bed. Pain has now improved to 3/10. These episodes started last week and usually last for about an hour. Reports SOB, lightheadness, and vision changes. Denies nausea, vomiting, diaphoresis. Discharged from [facility] yesterday for chest pain rule out, scheduled to follow up with cardiology next week. Trop negative. Hospital Course: Patient placed in the observation. Troponin trended x 4 negative. CTPA demonstrated pulmonary embolism which could explain patient's symptoms. Patient had another episode of chest pressure during the hospital stay, repeat EKG and troponin all unremarkable. EKG does demonstrate LVH. Seen by cardiology. He has outpatient follow-up with Dr. Hernandez coming week. ACS ruled out. Dr. Hernandez has been informed about patient's follow up. He may need stress test as an outpatient. Patient deemed clinically stable for discharge. He is discharged with Abigail Gonzalez for acute pulmonary embolism. Vital Signs/Physical Exam: Temp Pulse Resp BP Pulse Ox 98.6 F 69 18 142/75 H 95 07/27/21 11:53 07/27/21 11:53 07/27/21 11:53 07/27/21 11:53 07/27/21 11:53 General: Alert, In no apparent distress, Oriented x3 HEENT: Mucous membr. moist/pink Neck: JVD not distended Respiratory: Clear to auscultation bilaterally, Normal air movement Cardiovascular: No edema, Regular rate/rhythm, Normal S1 S2 Gastrointestinal: Soft and benign, Non-distended Musculoskeletal: No swelling, No tenderness Integumentary: No rashes, No cyanosis Neurological: Normal strength at 5/5 x4 extr Laboratory Data at Discharge: WBC 7.60 K/uL (4.3-10.9) 07/26/21 02:39 Hgb 14.4 g/dL (13.6-17.9) 07/26/21 02:39 Hct 43.2 % (39.6-49.0) 07/26/21 02:39 Plt Count 213 K/uL (152-406) 07/26/21 02:39 PT 11.4 SECONDS (9.5-12.5) 07/26/21 02:39 INR 0.99 07/26/21 02:39 Sodium 141 mmol/L (136-145) 07/27/21 05:28 Potassium 4.2 mmol/L (3.5-5.1) 07/27/21 05:28 BUN 12 mg/dL (7-18) 07/27/21 05:28 Creatinine 0.99 mg/dL (0.55-1.3) 07/27/21 05:28 Glucose 99 mg/dL (74-106) 07/27/21 05:28 Magnesium 2.2 mg/dL (1.8-2.4) 07/26/21 02:39 Total Bilirubin 0.3 mg/dL (0.2-1.0) 07/26/21 02:39 AST 17 U/L (15-37) 07/26/21 02:39 ALT 22 U/L (12-78) 07/26/21 02:39 Alkaline Phosphatase 107 U/L (45-117) 07/26/21 02:39 Troponin I < 0.02 ng/mL (0.0-0.045) 07/26/21 16:09 Triglycerides 46 mg/dL (<150) 07/26/21 06:39 Cholesterol 143 mg/dL (<200) 07/26/21 06:39 HDL Cholesterol 44 mg/dL (40-60) 07/26/21 06:39 Cholesterol/HDL Ratio 3.25 07/26/21 06:39 Home Medications: Amlodipine [Norvasc*] 5 mg PO DAILY #30 tab 07/27/21 Apixaban [Eliquis] 10 mg PO BID #74 tab 07/27/21 Aspirin [Aspirin EC] 81 mg PO DAILY #30 tablet. 07/27/21 Folic Acid 1 mg PO DAILY #30 tablet 07/27/21 New Medications: Aspirin [Aspirin EC] 81 mg PO DAILY #30 tablet. Apixaban [Eliquis] 10 mg PO BID #74 tab Folic Acid 1 mg PO DAILY #30 tablet Amlodipine [Norvasc*] 5 mg PO DAILY #30 tab Diet: AHA Activity: Ad cassy Followup: Ke Hernandez MD [ACTIVE - CAN ADMIT] - 2-3 Days NONE,NONE [Primary Care Provider] - 1 Week
--- NOTE | 2021-07-27 13:01 | P.PN ---
Subjective Date of Service: 07/27/21 Chief Complaint: chest pain Patient is currently asymptomatic. He has been experiencing intermittent chest pressure. The symptoms could be related to pulmonary embolism. Repeat EKG and troponin all negative. Physical Examination - Vital Signs Temperature: 98.6 F Blood Pressure: 142/75 Pulse: 69 Respirations: 18 Pulse Ox (%): 95 - Physical Exam General: Alert, In no apparent distress, Oriented x3 HEENT: Mucous membr. moist/pink Neck: JVD not distended Respiratory: Clear to auscultation bilaterally, Normal air movement Cardiovascular: No edema, Regular rate/rhythm, Normal S1 S2, No murmurs Capillary refill: <2 Seconds Gastrointestinal: Normal bowel sounds, Soft and benign, Non-distended, No tenderness Musculoskeletal: No swelling Integumentary: No rashes Neurological: Normal strength at 5/5 x4 extr, Cranial nerves 3-12 intact Assessment And Plan - Current Problems (Diagnosis) (1) Pulmonary embolism Current Visit: Yes Status: Acute (2) Essential hypertension Current Visit: Yes Status: Acute (3) LV hypertrophy, hypertensive Current Visit: Yes Status: Acute (4) Chest pain Current Visit: Yes Status: Acute Qualifiers: Chest pain type: unspecified Qualified Code(s): R07.9 - Chest pain, unspecified - Plan EKG demonstrating LVH. Patient with multiple hospitalizations for chest pressure. No diagnosis acute PE. ACS ruled out. Exercise stress test could not be performed yesterday due to availability of staff. Cardiology consulted. Patient is tolerating Eliquis for PE. Add aspirin as we continue to assess for CAD. Lipid profile within normal limits. Patient bradycardic. No need for beta-mariana at this time. Cardiac monitoring.
--- NOTE | 2021-07-27 20:48 | CON ---
Date of Consultation: 07/27/2021 Reason For Consultation: Chest pain. History Of Present Illness: 50-year-old male, presented with chest pain on the left side while he wa s driving along with shortness of breath and lightheadedness. Was diagnosed with PE. His troponins are negative. The patient has already scheduled an appointment to see Dr. Hernandez this Thursday. Ruben es having any history of cardiac disease. Feeling well today and no chest pain. Past Medical History: None. Medications: None. Allergies: HYDROCODONE. Family History: No mature coronary disease or cancer. Social History: He does not smoke or drink. Does not use any drugs. Review of Systems: All systems reviewed, and they were negative except as mentioned in the HPI. Physical Examination: Vitals: Reviewed. Head and Neck: Pupils are equal, reactive to light. Intact eye movements. No JVD. No cervical lym phadenopathy. Neck is supple. Thyroid is not enlarged. Lungs: Clear to auscultation bilaterally. No rhonchi, rales, or crackles. No accessory muscle use. Heart: Regular rate and rhythm. No extra sounds. Abdomen: Soft, nontender. Bowel sounds positive. No organomegaly. No masses or hernia. No rigidi ty or rebound. Extremities: No edema, clubbing, cyanosis. Intact pulses. Skin: No rash. Neurologic: Alert, awake, and oriented x3. No acute focal deficits appreciated. Investigations: CTA lungs showed a small subsegmental PE left upper lobe and troponins x3 are negative. Creatinine is 0.99. Assessment And Recommendations: 1.Unprovoked pulmonary embolism. Recommend lifelong anticoagulation. Eliquis 5 mg twice a day for life. 2.Chest pain, likely related to his PE. The patient already has an appointment with Dr. Hernandez on Thursday, at which time an echocardiogram and stress test will be performed. From Cardiology standpoin t, the patient can be released. Thank you for the consult. /BETY Voice ID: [id number] Report ID: [id number]
--- NOTE | 2021-07-29 18:32 | EKG ---
Test Date: 2021-07-26 Test Time: 16:04:48 Deal Architect: SHAVON MEASUREMENT RESULTS: Intervals: Rate: 56 OH: 208 QRSD: 104 QT: 394 QTc: 380 [place]: P: 58 OH: 208 QRS: -14 T: 21 INTERPRETIVE STATEMENTS: Sinus bradycardia Incomplete right bundle branch block Minimal voltage criteria for LVH, may be normal variant Borderline ECG Compared to ECG 07/26/2021 16:04:13 Incomplete right bundle-branch block now present First degree AV block no longer present Electronically Signed On 07-29-21 18:24:29 FRAME BANDER by Ke Hernandez
--- NOTE | 2021-07-29 18:32 | EKG ---
Test Date: 2021-07-26 Test Time: 16:04:13 Support Analyst: SHAVON MEASUREMENT RESULTS: Intervals: Rate: 55 RI: 210 QRSD: 86 QT: 384 QTc: 367 [place]: P: 65 RI: 210 QRS: -15 T: 16 INTERPRETIVE STATEMENTS: Sinus bradycardia with 1st degree AV block Minimal voltage criteria for LVH, may be normal variant Borderline ECG No previous ECG available for comparison Electronically Signed On 07-29-21 18:24:30 FIELD FOREMAN by Ke Hernandez
--- NOTE | 2021-07-29 18:34 | EKG ---
Test Date: 2021-07-26 Test Time: 02:31:01 Riveter Hand: MEASUREMENT RESULTS: Intervals: Rate: 72 MA: 212 QRSD: 96 QT: 364 QTc: 398 [place]: P: 42 MA: 212 QRS: -16 T: 26 INTERPRETIVE STATEMENTS: Sinus rhythm with 1st degree AV block Minimal voltage criteria for LVH, may be normal variant Borderline ECG No previous ECG available for comparison Electronically Signed On 07-29-21 18:24:43 CONSTRUCTION ANALYST by Ke Hernandez
--- OUTSIDE RECORDS SUMMARY | 2021-08-03 12:05 | XMS REPORT | Continuity of Care Document ---
:1970 Author Organization [facility] t Address [address] [place] [address] Care Team Providers Name Role Phone Pcp, Patient Does Not Have A Primary Care Physician [id number] SHELTON OQUENDO Attending Clinician Unavailable Amelia MCKEON Attending Clinician Unavailable Amelia MCKEON Attending Clinician Unavailable Shelton Oquendo MD Attending Clinician CROW Attending Clinician Unavailable Oscar CAPUTO, S Attending Clinician Crow CARTER Attending Clinician LAB90 Attending Clinician Unavailable 1, Sleep Lab Bed Attending Clinician Unavailable Amelia Mckeon MD Attending Clinician Doctor Unassigned, Name Attending Clinician Unavailable Only, Test Attending Clinician Unavailable Rose Marie LUI Attending Clinician Unavailable CROW Admitting Clinician Unavailable Crow CARTER Admitting Clinician Payers Payer Name Policy Type Policy Number Effective Date Expiration Date Ovidio wang [facility] 9 [id number] 2018-01-192018 00:00:00 [employer] [id number] 2021 ADMINISTRATION 00:00:00 JAYRO WITH THAO [id number] 2020 SEYBOLD 00:00:00 Problems Condition Condition Condition Status Onset Resolution Last Treating Co mments Source Name Details Category Date Date Treatment Clinician Date Chest pain Chest pain Disease Active 2020-09 U preethi 09-23 ity of 00:00: [place] [address] Medical Branch Plantar Plantar Disease Active Thao fasciitis, fasciitis, 9-27 Se ybold bilateral bilateral 00:00: 00 No known No known Disease Unive rs active active ity of problems problems [facility] Low HDL Low HDL Disease Active Thao (under 40) (under 40) Se ybold Prediabete Prediabete Disease Active K elsey s s Seybold Smoker Smoker Disease Active Thao Seybold 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 Allergies, Adverse Reactions, Alerts Allergy Allergy Status Severity Reaction(s) Onset Inactive Treating Comm ents Source Name Type Date Date Clinician Hydrocod Propensi Active Itching Hot/itchi Ke deeptidaria one ty to 6-08 ng Seybold adverse 00:00: reaction 00 s NO KNOWN Drug Active Univers ALLERGIE Class ity of S [facility] Social History Social Habit Start Date Stop Date Quantity Comments Source History SDOH Thao Stringero sera Alcohol Frequency History SDOH Thao Petersen ld Alcohol Std Drinks History SDOH Thao zamora Alcohol Binge Exposure to Not sure Thao lunsford SARS-CoV-2 (event) Alcohol intake 2021-07-29 2021-07-29 0 /d Thao Hauserkayla bold 00:00:00 00:00:00 Cigarettes smoked 2017-06-22 2017-06-22 Thao Ann current (pack per 00:00:00 00:00:00 day) - Reported Cigarette 2017-06-22 2017-06-22 Thao Ann pack-years 00:00:00 00:00:00 Tobacco use and 2017-06-22 2017-06-22 Smokeless tobacco Paco rogelio Stringerold exposure 00:00:00 00:00:00 non-user History of tobacco 2016-05-22 Cigarette Smoker Thao Ann use 00:00:00 Alcohol Comment 2015-07-11 2015-07-11 rare Thao Hauser ybreynold 00:00:00 00:00:00 [birth year] Thao Hauser ybold 00:00:00 00:00:00 Smoking Status Start Date Stop Date Source Unknown if ever smoked Universit y [facility] Former smoker 2021-07-25 00:00:00 2021-07-25 00:00:00 [facility] Medications Ordered Filled Start Stop Current Ordering Indication Dosage Frequency Signature Comments Components Source Medication Medication Date Date Medication? Clinician (SIG) Name Name Apixaban 5 2020-09 Yes [id number] 5mg Take 1 K elsey MG oral 1-08 tablet (5 Seybold Tablet 00:00: mg total) 00 by mouth 2 times daily Amlodipine 2020-09 Yes Thao Besylate 5 -06 Seybold MG oral 00:00: Tablet 00 Folic Acid 2020-09 Yes Thao 1 MG oral -06 Seybold tablet 00:00: 00 enoxaparin 2020-09 Yes 30mg 30 mg, Unive rs (LOVENOX) 1-04 Subcutaneo ity of injection 14:00[place] 00 First dose Medical on [facility] Branch 07/25/21 at 0900, Until Discontinu ed, Routine ondansetron 2020-09 Yes 4mg 4 mg, Slow Univers (ZOFRAN 1-04 IV Push, ity of (PF)) 07:15: Q6HPRN, [place] injection 4 46 Starting Medi lopez mg on [facility] Branch 07/25/21 at 0215, Until Discontinu ed, Routine, Nausea and Vomiting (N/V) No known No Univers medications 05-22 ity of 14:56: [address] Branch cyclobenzap Yes TAKE ONE Un trace rine 10 mg 6-28 TABLET BY ity of tablet 00:00: MOUTH AT [place] 00 BEDTIME Medical A MUSCLE Branch RELAXANT Methyl Yes APPLY Univers Salicylate- 6-28 SMALL ity of Menthol 00:00: AMOUNT TO [place] 15-10 % 00 THE SKIN Medical Crea EVERY 12 Branch HOURS FOR RELIEF OF MUSCLE PAIN cyclobenzap Yes TAKE ONE Un trace rine 10 mg 6-28 TABLET BY ity of tablet 00:00: MOUTH AT [place] 00 BEDTIME Medical A MUSCLE Branch RELAXANT Methyl Yes APPLY Univers Salicylate- 6-28 SMALL ity of Menthol 00:00: AMOUNT TO [place] 15-10 % 00 THE SKIN Medical Crea EVERY 12 Branch HOURS FOR RELIEF OF MUSCLE PAIN cyclobenzap Yes TAKE ONE Un trace rine 10 mg 6-28 TABLET BY ity of tablet 00:00: MOUTH AT [place] [address] BEDTIME Medical A MUSCLE Branch RELAXANT Methyl 1-0 Yes APPLY Univers Salicylate- 6-28 SMALL ity of Menthol 00:00: AMOUNT TO [place] 15-10 % 00 THE SKIN Medical Crea EVERY 12 Branch HOURS FOR RELIEF OF MUSCLE PAIN cyclobenzap 2020-0 Yes TAKE ONE Un trace rine 10 mg 6-28 TABLET BY ity of tablet 00:00: MOUTH AT [place] [address] BEDTIME Medical A MUSCLE Branch RELAXANT Methyl 2020-0 Yes APPLY Univers Salicylate- 6-28 SMALL ity of Menthol 00:00: AMOUNT TO [place] 15-10 % 00 THE SKIN Medical Crea EVERY 12 Branch HOURS FOR RELIEF OF MUSCLE PAIN cyclobenzap 2020-0 Yes TAKE ONE Un trace rine 10 mg 6-28 TABLET BY ity of tablet 00:00: MOUTH AT [place] [address] BEDTIME Medical A MUSCLE Branch RELAXANT Methyl 2020-0 Yes APPLY Univers Salicylate- 6-28 SMALL ity of Menthol 00:00: AMOUNT TO [place] 15-10 % 00 THE SKIN Medical Crea EVERY 12 Branch HOURS FOR RELIEF OF MUSCLE PAIN meloxicam 1-0 Yes 15mg Take 15 mg Un trace 15 mg 6-08 by mouth. ity of tablet 00:00: [place] [facility] meloxicam 2021-0 Yes 15mg Take 15 mg Un trace 15 mg 6-08 by mouth. ity of tablet 00:00: [place] [facility] meloxicam 2021-0 Yes 15mg Take 15 mg Un trace 15 mg 6-08 by mouth. ity of tablet 00:00: [place] [facility] meloxicam 2021-0 Yes 15mg Take 15 mg Un trace 15 mg 6-08 by mouth. ity of tablet 00:00: [place] [facility] meloxicam 1-0 Yes 15mg Take 15 mg Un trace 15 mg 6-08 by mouth. ity of tablet 00:00: [place] [facility] Cyclobenzap 1-0 Yes [id number] 5mg [id number] Take 1 Thao rine HCl 5 6-08 [id number] tablet (5 Seybold MG oral 00:00: 3D mg total) Tablet 00 by mouth 3 times daily as needed for muscle spasms Meloxicam 2021-0 Yes [id number] 15mg Take 1 K elsey 15 MG oral 6-08 tablet (15 Sey bold Tablet 00:00: mg total) 00 by mouth daily Cyclobenzap Yes [id number] 5mg [id number] Take 1 Thao rine HCl 5 02-26 [id number] tablet (5 Seybold MG oral 00:00: 3D mg total) Tablet 00 by mouth 3 times daily as needed for muscle spasms Meloxicam 2020- No [id number] 15mg Take 1 Thao 15 MG oral 02-26-08 tablet (15 Se ybold Tablet 00:00: 00:00 mg total) 00 :00 by mouth daily Immunizations Ordered Immunization Filled Immunization Date Status Commen ts Source Name Name Influenza Virus 2021-07-02 Completed Thao Se ybold Vaccine, Intradermal, 00:00:00 18-64 Yrs Influenza Virus 2021-07-02 Completed Thao Hauser ybold Vaccine, Intradermal, 00:00:00 18-64 Yrs SARS-COV-2 COVID-19 2020-11-25 Completed Unive rsity of MODERNA VACCINE 00:00:00 [facility] SARS-COV-2 COVID-19 2020-11-25 Completed Unive rsity of MODERNA VACCINE 00:00:00 [facility] SARS-COV-2 COVID-19 2020-11-25 Completed Unive rsity of MODERNA VACCINE 00:00:00 [facility] SARS-COV-2 COVID-19 2020-11-25 Completed Unive rsity of MODERNA VACCINE 00:00:00 [facility] SARS-COV-2 COVID-19 2020-11-25 Completed Unive rsity of MODERNA VACCINE 00:00:00 [facility] SARS-COV-2 COVID-19 2020-11-25 Completed Unive rsity of MODERNA VACCINE 00:00:00 [facility] Covid-19 Vaccine 2020-11-25 Completed Thao hawkins (Moderna), Mrna-lnp, 00:00:00 Jeremy Protein, Pf, 100 Mcg/0.5ml,IM SARS-COV-2 COVID-19 2020-11-25 Completed Unive rsity of MODERNA VACCINE 00:00:00 [facility] Covid-19 Vaccine 2020-11-25 Completed Thao Nolan eybold (Moderna), Mrna-lnp, 00:00:00 Jeremy Protein, Pf, 100 Mcg/0.5ml,IM Covid-19 Vaccine 2020-11-25 Completed Thao Nolan eybold (Moderna), Mrna-lnp, 00:00:00 Jeremy Protein, Pf, 100 Mcg/0.5ml,IM Covid-19 Vaccine 2020-11-25 Completed Thao Nolan eybold (Moderna), Mrna-lnp, 00:00:00 Jeremy Protein, Pf, 100 Mcg/0.5ml,IM SARS-COV-2 COVID-19 2020-10-28 Completed Unive rsity of MODERNA VACCINE 00:00:00 [facility] SARS-COV-2 COVID-19 2020-10-28 Completed Unive rsity of MODERNA VACCINE 00:00:00 [facility] SARS-COV-2 COVID-19 2020-10-28 Completed Unive rsity of MODERNA VACCINE 00:00:00 [facility] SARS-COV-2 COVID-19 2020-10-28 Completed Unive rsity of MODERNA VACCINE 00:00:00 [facility] SARS-COV-2 COVID-19 2020-10-28 Completed Unive rsity of MODERNA VACCINE 00:00:00 [facility] SARS-COV-2 COVID-19 2020-10-28 Completed Unive rsity of MODERNA VACCINE 00:00:00 [facility] Covid-19 Vaccine 2020-10-28 Completed Thao huffbold (Moderna), Mrna-lnp, 00:00:00 Jeremy Protein, Pf, 100 Mcg/0.5ml,IM Covid-19 Vaccine 2020-10-28 Completed Thao Nolan eybold (Moderna), Mrna-lnp, 00:00:00 Jeremy Protein, Pf, 100 Mcg/0.5ml,IM Covid-19 Vaccine 2020-10-28 Completed Thao Nolan eybold (Moderna), Mrna-lnp, 00:00:00 Jeremy Protein, Pf, 100 Mcg/0.5ml,IM Covid-19 Vaccine 2020-10-28 Completed Thao hawkins (Moderna), Mrna-lnp, 00:00:00 Jeremy Protein, Pf, 100 Mcg/0.5ml,IM SARS-COV-2 COVID-19 2020-10-28 Completed Alison rsadryan of MODERNA VACCINE 00:00:00 [facility] Branch Influenza Virus 2020-07-12 Completed Thao Se ybold Vaccine, age 6 months 00:00:00 and up Influenza Virus 2020-07-12 Completed Thao Se ybold Vaccine, age 6 months 00:00:00 and up Influenza Virus 2019-06-17 Completed Thao Se ybold Vaccine, age 6 months 00:00:00 and up Influenza Virus 2019-06-17 Completed Thao Se ybold Vaccine, age 6 months 00:00:00 and up Influenza Virus 2018-07-09 Completed Thao Se ybold Vaccine, age 6 months 00:00:00 and up Influenza Virus 2018-07-09 Completed Thao Se ybold Vaccine, age 6 months 00:00:00 and up Influenza Virus 2017-06-22 Completed Thao Se ybold Vaccine, age 6 months 00:00:00 and up Tdap- (Boostrix, 2017-06-22 Completed Thao S eybold Adacel) 00:00:00 Influenza Virus 2017-06-22 Completed Thao Se ybold Vaccine, age 6 months 00:00:00 and up Tdap- (Boostrix, 2017-06-22 Completed Thao S eybold Adacel) 00:00:00 Pneumococcal Vaccine, 2015-07-11 Completed Maurice sey Seybold Polysaccharide 00:00:00 Pneumococcal Vaccine, 2015-07-11 Completed Maurice sey Seybold Polysaccharide 00:00:00 Influenza Virus 2015-06-29 Completed Thao Se ybold Vaccine, age 6 months 00:00:00 and up Influenza Virus 2015-06-29 Completed Thao Se ybold Vaccine, age 6 months 00:00:00 and up Tdap- (Boostrix, 2006-09-21 Completed Thao S eybold Adacel) 00:00:00 Tdap- (Boostrix, 2006-09-21 Completed Thao S eybold Adacel) 00:00:00 Vital Signs Vital Name Observation Time Observation Value Comments Source Systolic blood 2021-07-29 16:14:00 124 mm[Hg] Thao Seybold pressure Diastolic blood 2021-07-29 16:14:00 64 mm[Hg] Kelse y Seybold pressure Heart rate 2021-07-29 16:14:00 71 /min Thao S eybold Body temperature 2021-07-29 16:14:00 37.28 Moriah Lluvia ey Seybold Respiratory rate 2021-07-29 16:14:00 16 /min Lluvia ey Seybold Body height 2021-07-29 16:14:00 185.4 cm Thao S eybold Body weight 2021-07-29 16:14:00 102.967 kg Thao S eybold BMI 2021-07-29 16:14:00 29.95 kg/m2 Thao S eybold Systolic blood 2021-07-29 16:14:00 124 mm[Hg] Thao Seybold pressure Diastolic blood 2021-07-29 16:14:00 64 mm[Hg] Kelse y Seybold pressure Heart rate 2021-07-29 16:14:00 71 /min Thao S eybold Body temperature 2021-07-29 16:14:00 37.28 Moriah Lluvia ey Seybold Respiratory rate 2021-07-29 16:14:00 16 /min Lluvia huff Seybold Body height 2021-07-29 16:14:00 185.4 cm Thao Nolan eybold Body weight 2021-07-29 16:14:00 102.967 kg Thao Nolan eybold BMI 2021-07-29 16:14:00 29.95 kg/m2 Thao S eybold Systolic blood 2021-07-25 17:34:00 110 mm[Hg] Univer sity of [facility] Diastolic blood 2021-07-25 17:34:00 76 mm[Hg] Unive rsity of pressure [facility] Heart rate 2021-07-25 17:34:00 69 /min Universi [facility] Body temperature 2021-07-25 17:34:00 36.67 Moriah Univ ersity of [facility] Respiratory rate 2021-07-25 17:34:00 16 /min [facility] saturation in 2021-07-25 17:34:00 95 /min [facility] blood by [facility] Pulse oximetry Branch Body weight 2021-07-25 08:16:00 102.967 [facility] BMI 2021-07-25 08:16:00 29.95 kg/m2 [facility] Systolic blood 2021-07-19 18:19:00 124 mm[Hg] Thao Seybold pressure Diastolic blood 2021-07-19 18:19:00 76 mm[Hg] Kelse y Seybold pressure Heart rate 2021-07-19 18:19:00 73 /min Thao S eybold Body temperature 2021-07-19 18:19:00 36.89 Moriah Lluvia ey Seybold Respiratory rate 2021-07-19 18:19:00 16 /min Lluvia ey Seybold Body height 2021-07-19 18:19:00 185.4 cm Thao S eybold Body weight 2021-07-19 18:19:00 105.688 kg Thao S eybold BMI 2021-07-19 18:19:00 30.74 kg/m2 Thao S eybold Systolic blood 2021-07-19 18:19:00 124 mm[Hg] Thao Seybold pressure Diastolic blood 2021-07-19 18:19:00 76 mm[Hg] Kelse y Seybold pressure Heart rate 2021-07-19 18:19:00 73 /min Thao S eybold Body temperature 2021-07-19 18:19:00 36.89 Moriah Lluvia ey Seybold Respiratory rate 2021-07-19 18:19:00 16 /min Lluvia ey Seybold Body height 2021-07-19 18:19:00 185.4 cm Thao S eybold Body weight 2021-07-19 18:19:00 105.688 kg Thao S eybold BMI 2021-07-19 18:19:00 30.74 kg/m2 Thao S eybold Systolic blood 2021-05-22 19:56:00 137 mm[Hg] Univer sity of pressure [facility] Diastolic blood 2021-05-22 19:56:00 80 mm[Hg] Unive rsity of pressure [facility] Heart rate 2021-05-22 19:56:00 64 /min [facility] Body temperature 2021-05-22 19:56:00 36.72 Moriah [facility] Respiratory rate 2021-05-22 19:56:00 18 /min [facility] Body height 2021-05-22 19:56:00 185.4 cm [facility] Body weight 2021-05-22 19:56:00 103.239 kg [facility] BMI 2021-05-22 19:56:00 30.03 kg/m2 [facility] Oxygen saturation in 2021-05-22 19:56:00 96 /min [facility] Arterial blood by [facility] Pulse oximetry Branch Procedures Procedure Date / Time Performing Clinician Source Performed TROPONIN I 2021-07-25 15:22:00 [facility] TRANSTHORACIC ECHO (TTE) 2021-07-25 14:51:00 Fransisco Maria [facility] COMPLETE [facility] TROPONIN I 2021-07-25 07:24:00 Fransisco [facility] THYROID STIMULATING 2021-07-25 07:24:00 Fransisco Maria [facility] HORMONE [facility] LIPID PANEL ([id number])(TOTAL 2021-07-25 07:24:00 Fransisco Maria [facility] CHOLESTEROL, [facility] TRIGLYCERIDES, HDL) COVID-19 (ID NOW RAPID 2021-07-25 00:59:00 Bonnie Moore [facility] TESTING) Medical Branch LAB ONLY COVID 2021-07-25 00:59:00 Bonnie Moore [facility] INTERPRETATION [facility] XR CHEST 1 VW 2021-07-24 23:15:47 Bonnie [facility] TROPONIN I 2021-07-24 23:02:00 Bonnie [facility] COMP. METABOLIC PANEL 2021-07-24 23:02:00 Bonnie Moore [facility] ([id number]) Medical Branch CBC WITH DIFF 2021-07-24 23:02:00 Bonnie [facility] GLYCOSYLATED HEMOGLOBIN 2021-07-24 23:02:00 Fransisco Maria [facility] (A1C) [facility] N-TERMINAL PRO-BNP 2021-07-24 23:02:00 Bonnie Moore [facility] SLEEP STUDY DATA REPORT 2021-07-10 05:01:00 Doctor Unassigned, U [facility] [place] Medical Branch ASSIGNMENT OF BENEFITS 2021-05-22 19:45:33 Doctor Unassigned, Un [facility] [place] Medical Branch DME/SUPPLY JUSTIFICATION 2021-05-15 05:01:00 Doctor Unassfabian, [facility] Name Medical Branch Encounters Start End Encounter Admission Attending Care Care Encounter Source Date/Time Date/Time Type Type Clinicians Facility Department ID 2021-08-26 2021-08-26 Outpatient THAO OQUENDO [id number] Thao 08:00:00 08:00:00 APRIL lunsford 2021-08-07 2021-08-07 Outpatient R JENNIFER MCKEON [facility] [id number] [facility] 15:40:00 15:40:00 JENNIFER MCKEON [id number] ity [facility] 2021-08-01 2021-08-01 Outpatient THAO OQUENDO [id number] Thao 00:00:00 00:00:00 APRIL lunsford 2021-07-29 2021-07-29 Office Yakov Oquendo [id number] Thao 10:12:53 10:42:53 Visit April Nguyen [id number] Se elissa Somogyi 1.2.7.2.686 [id number] 2021-07-29 2021-07-29 Office Yakov Oquendo [id number] 10:12:53 10:42:53 Visit April Nguyen [id number] Somogyi 1.2.7.2.686 [id number] 2021-07-26 2021-07-26 Outpatient THAO OQUENDO [id number] Thao 09:00:00 09:00:00 APRIL lunsford 2021-07-26 2021-07-26 Outpatient THAO OQUENDO [id number] Thao 00:00:00 00:00:00 APRIL lunsford 2021-07-24 2021-07-25 Outpatient X [facility] [id number] Univers 16:44:00 14:11:00 [facility] 2021-07-24 2021-07-25 Emergency Bonnie Moore S [facility] [id number] Univers 16:44:00 14:11:00 Fransisco Maria [place] [id number] [id number] [facility] [id number] [address] 2021-07-25 2021-07-25 Outpatient THAO OQUENDO [id number] Thao 00:00:00 00:00:00 APRIL lunsford 2021-07-19 2021-07-19 Outpatient LAB90 THAO TAN [id number] Thao 14:15:00 14:15:00 Seybol d 2021-07-19 2021-07-19 Office Yakov Oquendo [id number] Thao 13:16:34 13:46:34 Visit April Nguyen [id number] [facility] Somogy[facility] 1.2.7.2.686 [id number] 2021-07-19 2021-07-19 Office Yakov Oquendo [id number] 13:16:34 13:46:34 Visit April Nguyen [id number] Somogyi 1.2.7.2.686 [id number] 2021-07-10 2021-07-10 Outpatient R [facility] [id number] Univers 19:30:00 19:30:00 [id number] [facility] 2021-07-10 2021-07-10 Outpatient R JENNIFER MCKEON [facility] [id number] Univers 19:30:00 19:30:00 JENNIFER MCKEON [facility] 2021-07-10 2021-07-10 [place] 1, [facility] Sleep Lab Bed [facility] 1. 2.840.114 [id number] Univers 15:33:52 18:03:52 Visit Jennifer Mckeon 350.1.13. 10 ity of [place] 4.2.7.2.686 [facility] [id number] [facility] 193 Branch 2021-07-10 2021-07-10 Orders Doctor RUDY [id number] Univers 00:00:00 00:00:00 Only Unassigned, LEYLA [id number] ity of [facility] 4.2.7.2.686 [facility] [id number] [facility] 009 Branch 2021-07-08 2021-07-08 Outpatient R [facility] [id number] Univers 16:45:00 16:45:00 [id number] ity [facility] 2021-07-08 2021-07-08 Laboratory Only, [facility] Test [facility] 1.2.840. 114 [id number] Univers 16:17:16 16:32:16 Only Jennifer Mckeon 350.1.13. 10 ity of [place] 4.2.7.2.686 [facility] [id number] [facility] 353 Branch 2021-07-08 2021-07-08 Outpatient R JENNIFER MCKEON [facility] [id number] Univers 16:15:00 16:15:00 CLAY MCKEONL ity [facility] 2021-06-11 2021-06-11 Outpatient R [facility] [id number] Univers 19:30:00 19:30:00 [id number] ity [facility] 2021-06-11 2021-06-11 Outpatient R CLAY MCKEONL [facility] [id number] Univers 19:30:00 19:30:00 SURY MCKEONHIL ity [facility] 2021-06-07 2021-06-07 Outpatient R [facility] [id number] Univers 15:15:00 15:15:00 [id number] ity [facility] 2021-06-07 2021-06-07 Outpatient R [facility] [id number] Univers 15:15:00 15:15:00 ity [facility] 2021-05-22 2021-05-22 Office Mike [facility] [id number] Univers 14:47:09 15:07:09 Visit Jennifer Reynoso 350.1.13.10 [place].7.2.[place] [id number] [place] dical nal 085 [facility] 2021-05-22 2021-05-22 Outpatient R JEANNIESURY BOOIMMANUEL [facility] [id number] Univers 15:00:00 15:00:00 JENNIFER MCKEON ity [facility] 2021-05-22 2021-05-22 Orders Doctor RUDY [id number] Univers 00:00:00 00:00:00 Only Unassigned, LEYLA 350.1.13.10 ity of [place] [facility] 4.2.7.2.686 Tristan as [id number] [address] 2021-05-15 2021-05-15 Orders Doctor RUDY [id number] Univers 00:00:00 00:00:00 Only Unassigned, LEYLA [id number] [place] [facility] 4.2.7.2.686 Tristan as [id number] [address] 2021-04-30 2021-04-30 Outpatient THAO LUI [id number] Thao 00:00:00 00:00:00 ROSALIO lunsford 2021-04-12 2021-04-12 Outpatient THAO LUI [id number] Thao 00:00:00 00:00:00 ROSALIO lunsfrod Results Test Description Test Time Test Comments Results Result Comments Source TROPONIN I 2021-07-25 17:58:33 Test Item Value Reference Range Interpretation Comme nts TROPONIN I (test code = 0.002 ng/mL See_Comment [Au tomated message] The [id number]) system which ge nerated this result tra nsmitted reference range : <=0.034. The reference r yuko was not used to int erpret this result as normal/abnormal . LORI (test code = LORI) Reference (Normal) Range (defined by the 99th percentile reference limit): <= 0.034 ng/mL Note: Cardiac troponin begins to rise 3-4 hours after the onset of ischemia. Repeat in 4-6 hours if the sample was drawn within 3-4 hours of the onset of the symptom and found normal. Diagnosis of myocardial injury is made with acute changes in cTn concentrations with at least one serial sample above the 99th percentile upper reference limit (URL), taken together with the patient's clinical presentation. Biotin has been reported to cause a negative bias, interpret results relative to patient's use of biotin. Lab Interpretation Normal (test code = 90529-4) [id number]TOTAL CHOLESTEROL, TRIGLYCERIDES, HDL)2021-07-25 09:12:49 Test Item Value Reference Range Interpretation Comments CHOL (test code = 148 mg/dL 120-200 [id number]) HDL (test code = 43 mg/dL >40 [id number]) HDLC RATIO (test code = See_Comment [Au tomated message] [id number]) The system [employer] generated this result transmit noe reference range : <=5.0. The refe rence range was not u sed to interpret th is result as normal/abnormal . TRIG (test code = 56 mg/dL 30-170 [id number]) LDL CHOL (test code = 94 mg/dL See_Comment [Auto mated message] 75434-4) The system [employer] generated this result transmit noe reference range : <=160. The refe rence range was not u sed to interpret th is result as normal/abnormal . VLDL (test code = 11 mg/dL 5-60 [id number]) Lab Interpretation (test Normal code = 67356-9) [facility] [id number] 08:27:46 Test Item Value Reference Range Interpretation Comments TSH (test code = See_Comment [Automated message] [id number]) The system [employer] generated this result transmitted ref erence range: 0.45 - 4 .70 mIU/L. The refe rence range was not u sed to interpret this result as normal/abnor mal. Lab Interpretation (test Normal code = 29468-6) [facility] [facility] [id number] 08:09:02 Test Item Value Reference Interpretation Comments Range TROPONIN I (test 0.003 ng/mL See_Comment [Automated code = [id number]) message] The system which generated this result transmitted reference range : <=0.034. The reference range was not used to interpret this result as normal/abnormal . LORI (test code = Reference (Normal) LORI) Range (defined by the 99th percentile reference limit): <= 0.034 ng/mL Note: Cardiac troponin begins to rise 3-4 hours after the onset of ischemia. Repeat in 4-6 hours if the sample was drawn within 3-4 hours of the onset of the symptom and found normal. Diagnosis of myocardial injury is made with acute changes in cTn concentrations with at least one serial sample above the 99th percentile upper reference limit (URL), taken together with the patient's clinical presentation. Biotin has been reported to cause a negative bias, interpret results relative to patient's use of biotin. Lab Interpretation Normal (test code = 36657-5) [facility]21-07-25 07:44:12 Test Item Value Reference Range Interpretation Comments HGB A1C (test code = 5.5 % 4.0-5.7 4548-4) LORI (test code = LORI) Reference RangesNormal: <5.7%Prediabetes: 5.7 - 6.4%Diabetes: > 6.5% Lab Interpretation (test Normal code = 60475-0) [facility] [id number] 23:43:41 Test Item Value Reference Interpretation Comments Range TROPONIN I (test 0.002 ng/mL See_Comment [Automated code = [id number]) message] The system which generated this result transmitted reference range : <=0.034. The reference range was not used to interpret this result as normal/abnormal . LORI (test code = Reference (Normal) LORI) Range (defined by the 99th percentile reference limit): <= 0.034 ng/mL Note: Cardiac troponin begins to rise 3-4 hours after the onset of ischemia. Repeat in 4-6 hours if the sample was drawn within 3-4 hours of the onset of the symptom and found normal. Diagnosis of myocardial injury is made with acute changes in cTn concentrations with at least one serial sample above the 99th percentile upper reference limit (URL), taken together with the patient's clinical presentation. Biotin has been reported to cause a negative bias, interpret results relative to patient's use of biotin. Lab Interpretation Normal (test code = 27986-7) [id number] 23:40:42 Test Item Value Reference Range Interpretation Comments NT-proBNP (test code 45 pg/mL See_Comment [Autom ated = [id number]) message] The system which generated this result transmitted reference range : <=125. The reference range was not used to interpret this result as normal/abnormal . LORI (test code = LORI) Biotin has been reported to cause a negative bias, interpret results relative to patient's use of biotin. Lab Interpretation Normal (test code = 27427-8) [facility] ([id number])2021-07-24 23:32:02 Test Item Value Reference Range Interpretation Comments NA (test code = 137 mmol/L 135-145 0190409372) K (test code = 3.9 mmol/L 3.5-5.0 9179158736) CL (test code = 106 mmol/L 98-108 3420579736) CO2 TOTAL (test code = 21 mmol/L 23-31 L 5898283285) AGAP (test code = 2-16 6352785211) BUN (test code = 20 mg/dL 7-23 9552256971) GLUCOSE (test code = 104 mg/dL 70-110 5004753984) CREATININE (test code = 1.08 mg/dL 0.60-1.25 7794279655) TOTAL BILI (test code = 0.4 mg/dL 0.1-1.2 2544955241) CALCIUM (test code = 9.3 mg/dL 8.6-10.6 2509165860) T PROTEIN (test code = 7.3 g/dL 6.3-8.2 4753824805) ALBUMIN (test code = 4.5 g/dL 3.5-5.0 3755534926) ALK PHOS (test code = 105 U/L 34-122 0537309403) ALTv (test code = 16 U/L 5-50 1742-6) AST(SGOT) (test code = 24 U/L 13-40 2075624821) eGFR (test code = mL/min/1.73m2 7133312451) LORI (test code = LORI) Association of Glomerular Filtration Rate (GFR) and Staging of Kidney Disease* + --+ --+ ------+| GFR (mL/min/1.73 m2) ?| With Kidney Damage ?| ?Without Kidney Damage+ --------+ --------+ +| ?>90 ?| ?Stage one ?| ? Normal ?+ ---+ ---+ -------+| ?60-89 ?| ?Stage two ?| ? Decreased GFR ? + --+ --+ ------+| ?30-59 ?| ?Stage three ?| ? Stage three ? + --+ --+ ------+| ?15-29 ?| ?Stage four ? | ? Stage four ?+ ---+ ---+ -------+| ?<15 (or dialysis) ? ?| ?Stage five ? | ? Stage five ?+ ---+ ---+ -------+ *Each stage assumes the associated GFR level has been in effect for at least three months. ?Stages 1 to 5, with or without kidney disease, indicate chronic kidney disease. Notes: Determination of stages one and two (with eGFR >59mL/min/1.73 m2) requires estimation of kidney damage for at least three months as defined by structural or functional abnormalities of the kidney, manifested by either:Pathological abnormalities or Markers of kidney damage (including abnormalities in the composition of the blood or urine or abnormalities in imaging tests). Lab Interpretation Abnormal (test code = 74341-1) [facility] WITH [id number] 23:14:54 Test Item Value Reference Range Interpretation Comments WBC (test code = See_Comment [Automated message] 6690-2) The system [employer] generated this result transmitted ref erence range: 4.20 - 1 0.70 10*3/?L. The re ference range was not u sed to interpret this result as normal/abnor mal. RBC (test code = See_Comment [Automated message] 789-8) The system [employer] generated this result transmitted ref erence range: 4.26 - 5 .52 10*6/?L. The re ference range was not u sed to interpret this result as normal/abnor mal. HGB (test code = 14.4 g/dL 12.2-16.4 718-7) HCT (test code = 41.2 % 38.4-49.3 4544-3) MCV (test code = 90.0 fL 81.7-95.6 787-2) MCH (test code = 31.4 pg 26.1-32.7 785-6) MCHC (test code = 35.0 g/dL 31.2-35.0 786-4) RDW-SD (test code 41.8 fL 38.5-51.6 = 90894-1) RDW-CV (test code 12.7 % 12.1-15.4 = 788-0) PLT (test code = See_Comment [Automated message] 777-3) The system [employer] generated this result transmitted ref erence range: 150 - 32 8 10*3/?L. The re ference range was not u sed to interpret this result as normal/abnor mal. MPV (test code = 10.8 fL 9.8-13.0 94188-9) NRBC/100 WBC (test See_Comment [Automat ed message] code = 6247442038) The syste m which generated this result transmitted ref erence range: 0.0 - 10 .0 /100 WBCs. The refer ence range was not u sed to interpret this result as normal/abnor mal. NRBC x10^3 (test <0.01 See_Comment [Automated message] code = 9973804878) The syste m which generated this result transmitted ref erence range: 10*3/?L. The reference range was not used to interpr et this result as normal/abnormal . GRAN MAT (NEUT) % 67.7 % (test code = 770-8) IMM GRAN % (test 0.40 % code = 7153572597) LYMPH % (test code 22.4 % = 736-9) MONO % (test code 7.7 % = 5905-5) EOS % (test code = 1.4 % 713-8) BASO % (test code 0.4 % = 706-2) GRAN MAT 5.35 10*3/uL 1.99-6.95 x10^3(ANC) (test code = 8561763940) IMM GRAN x10^3 0.03 10*3/uL 0.00-0.06 (test code = 8135708308) LYMPH x10^3 (test 1.77 10*3/uL 1.09-3.23 code = 731-0) MONO x10^3 (test 0.61 10*3/uL 0.36-1.02 code = 742-7) EOS x10^3 (test 0.11 10*3/uL 0.06-0.53 code = 711-2) BASO x10^3 (test 0.03 10*3/uL 0.01-0.09 code = 704-7) [facility]"
== END 2021-07-27 16:00 | disposition home or self-care (01) ==
LOC: ER 02:26 → ERHOLD 03:37 → 2ND 04:39
PROVIDERS: ADMIT Internal Medicine; ATTEND Internal Medicine
DX: I26.99 Other pulmonary embolism without acute cor pulmonale (principal); I10 Essential (primary) hypertension; I11.9 Hypertensive heart disease without heart failure; R07.9 Chest pain, unspecified
CPT/HCPCS: 93005 ×3; 85025; 80048 ×2; 36415 ×2; 83735; 85610; 80061; 85379; 80076; 84443; 84484 ×4; 84439; 83880; 71275; 71045; 93970; 94760 ×4; 96372; 96374; 99285; Q9967; J1650; J7030 ×2; G0378 ×3

== ENCOUNTER 2021-07-30 09:55 | Emergency (ER) | payer OTHER ==
[2021-07-30 10:19] LABS: Absolute Lymphocytes (CBC) 1.8 K/uL (0.7-4.9); Basophils % 0.7 % (0-1.3); Hematocrit 44.8 % (39.6-49.0); Lymphocytes % 25.9 % (15.3-44.8); MPV 8.5 fL (7.6-11.3); RBC Red Blood Cell Count 4.91 M/uL (4.33-5.43)
[2021-07-30 10:22] LABS: Protime INR 1.52
[2021-07-30 10:36] LABS: ALT/SGPT 25 U/L (12-78); AST/SGOT 16 U/L (15-37); Albumin 4.2 g/dL (3.4-5.0); Alkaline Phosphatase 97 U/L (45-117); BUN Blood Urea Nitrogen 17 mg/dL (7-18); Bicarbonate 25 mmol/L (21-32); Bilirubin Direct 0.2 mg/dL (0-0.2); Bilirubin Total 0.6 mg/dL (0.2-1.0); Glucose Level 93 mg/dL (74-106); Magnesium 2.1 mg/dL (1.8-2.4); NT PRO-BNP 19 pg/mL (<125); Potassium 3.9 mmol/L (3.5-5.1); Protein, Total 7.9 g/dL (6.4-8.2); Sodium Level 143 mmol/L (136-145); Troponin (Emerg Dept Use Only) < 0.02 ng/mL (0.0-0.045)
--- NOTE | 2021-07-30 11:20 | RAD REPORT ---
EXAM DESCRIPTION: RAD - Chest Single View - 07/30/2021 11:10 am CLINICAL HISTORY: CHEST PAIN Chest pain. COMPARISON: Chest Single View dated 07/26/2021; Chest Pa And Lat (2 Views) dated 04/26/2020 FINDINGS: Portable technique limits examination quality. The lungs are grossly clear. The heart is normal in size. No displaced fractures. IMPRESSION: No acute intrathoracic process suspected.
--- NOTE | 2021-07-30 11:30 | RAD REPORT ---
EXAM DESCRIPTION: CT - Chest For Pe Angio - 07/30/2021 11:12 am CLINICAL HISTORY: Chest pain. CHEST PAIN COMPARISON: Chest For Pe Angio dated 07/26/2021 TECHNIQUE: CT angiogram of the pulmonary arteries was performed with MIP. All CT scans are performed using dose optimization technique as appropriate and may include automated exposure control or mA/KV adjustment according to patient size. FINDINGS: No evidence of pulmonary thromboembolism. The previously noted small left-sided PE is no l onger seen. No acute aortic finding demonstrated. Mild interstitial pulmonary edema. No significant pericardial or pleural fluid. No concerning bony finding. IMPRESSION: No evidence of pulmonary thromboembolism. Mild interstitial pulmonary edema.
--- NOTE | 2021-07-30 11:48 | EDPHYS ---
Physician Documentation [facility] Name: Isiah Hightower Age: 50 yrs Sex: Male : 1970 Arrival Date: 07/30/2021 Time: 09:58 Bed 4 Private MD: ED Physician Tyler Julien HPI: 07/30 10:34 This 50 yrs old Male presents to ER via Wheelchair with complaints of Chest pkl Pain. 10:34 The patient or guardian reports chest pain that is located primarily in the substernal pkl area. Onset: 30 minute(s) ago. The pain does not radiate. Associated signs and symptoms: The patient has no apparent associated signs or symptoms. The chest pain is described as a pressure. Patient discharged from Hospital 3 days ago for PE. On Eliquis at present. Has follow up appointment at [place] tomorrow . Historical: - Allergies: 09:59 Hydrocodone-Acetaminophen; ll1 - Home Meds: 10:04 Eliquis oral [Active]; amlodipine oral [Active]; iw - PMHx: 09:59 chronic back pain; ll1 10:04 Hypertensive disorder; PE; iw - PSHx: 10:04 None; iw - Immunization history:: Client reports receiving the 2nd dose of the Covid vaccine. - Social history:: Smoking status: Patient denies any tobacco usage or history of. ROS: 10:34 Eyes: Negative for injury, pain, redness, and discharge, ENT: Negative for injury, pkl pain, and discharge, Neck: Negative for injury, pain, and swelling. 10:34 Cardiovascular: Positive for chest pain. 10:34 Respiratory: Negative for cough, shortness of breath. 10:34 Abdomen/GI: Negative for abdominal pain, nausea, vomiting, and diarrhea. 10:34 Back: Negative for injury or acute deformity. 10:34 : Negative for urinary symptoms. 10:34 MS/extremity: Negative for acute changes. 10:34 Skin: Negative for rash. 10:34 Neuro: Negative for altered mental status, loss of consciousness. Exam: 10:34 Head/Face: Normocephalic, atraumatic. Eyes: Pupils equal round and reactive to light, pkl extra-ocular motions intact. Lids and lashes normal. Conjunctiva and sclera are non-icteric and not injected. Cornea within normal limits. Periorbital areas with no swelling, redness, or edema. ENT: Nares patent. No nasal discharge, no septal abnormalities noted. Tympanic membranes are normal and external auditory canals are clear. Oropharynx with no redness, swelling, or masses, exudates, or evidence of obstruction, uvula midline. Mucous membranes moist. Neck: Trachea midline, no thyromegaly or masses palpated, and no cervical lymphadenopathy. Supple, full range of motion without nuchal rigidity, or vertebral point tenderness. No Meningismus. Chest/axilla: Normal chest wall appearance and motion. Nontender with no deformity. No lesions are appreciated. Cardiovascular: Regular rate and rhythm with a normal S1 and S2. No gallops, murmurs, or rubs. Normal PMI, no JVD. No pulse deficits. Respiratory: Lungs have equal breath sounds bilaterally, clear to auscultation and percussion. No rales, rhonchi or wheezes noted. No increased work of breathing, no retractions or nasal flaring. Abdomen/GI: Soft, non-tender, with normal bowel sounds. No distension or tympany. No guarding or rebound. No evidence of tenderness throughout. Back: No spinal tenderness. No costovertebral tenderness. Full range of motion. Skin: Warm, dry with normal turgor. Normal color with no rashes, no lesions, and no evidence of cellulitis. MS/ Extremity: Pulses equal, no cyanosis. Neurovascular intact. Full, normal range of motion. Neuro: Awake and alert, GCS 15, oriented to person, place, time, and situation. Cranial nerves II-XII grossly intact. Motor strength 5/5 in all extremities. Sensory grossly intact. Cerebellar exam normal. Normal gait. Vital Signs: 10:02 Resp 18 S; Weight 102.97 kg; Height 6 ft. 1 in. (185.42 cm); Pain 7/10; iw 10:14 BP 115 / 79; Pulse 67; Resp 17; Pulse Ox 98% on R/A; Pain 7/10; ll1 11:00 Temp 98.8(TE); ll1 11:00 BP 109 / 75; Pulse 67; Resp 15; Pulse Ox 98% ; ll1 12:02 BP 125 / 83; Pulse 67; Resp 18; Pulse Ox 97% ; Pain 0/10; ll1 10:02 Body Mass Index 29.95 (102.97 kg, 185.42 cm) iw MDM: 10:02 Patient medically screened. pkl 11:43 Data reviewed: vital signs, nurses notes, lab test result(s), EKG, radiologic studies, pkl CT scan, plain films. ED course: Patient feeling better. Asymptomatic. Discussed lab, EKG and CT Scan results with patient. Ad[facility] To return tomorrow. Patient understood instructions. 07/30 10:02 Order name: Basic Metabolic Panel; Complete Time: 10:49 iw 07/30 10:02 Order name: CBC with Diff; Complete Time: 10:32 iw 07/30 10:02 Order name: LFT's; Complete Time: 10:49 iw 07/30 10:02 Order name: Magnesium; Complete Time: 10:49 iw 07/30 10:02 Order name: NT PRO-BNP; Complete Time: 10:49 iw 07/30 10:02 Order name: PT-INR; Complete Time: 10:32 iw 07/30 10:02 Order name: Troponin (emerg Dept Use Only); Complete Time: 10:49 iw 07/30 10:02 Order name: XRAY Chest (1 view); Complete Time: 11:24 iw 07/30 10:02 Order name: EKG; Complete Time: 10:03 iw 07/30 10:02 Order name: Cardiac monitoring; Complete Time: 10:14 iw 07/30 10:02 Order name: EKG - Nurse/Tech; Complete Time: 10:14 iw 07/30 10:02 Order name: IV Saline Lock; Complete Time: 10:14 iw 07/30 10:02 Order name: Labs collected and sent; Complete Time: 10:14 iw 07/30 10:51 Order name: CT Chest For PE Angio; Complete Time: 11:42 pkl 07/30 10:02 Order name: O2 Per Protocol; Complete Time: 10:14 iw 07/30 10:02 Order name: O2 Sat Monitoring; Complete Time: 10:14 iw Administered Medications: No medications were administered Disposition Summary: 07/30/21 11:47 Discharge Ordered Location: Home pkl Problem: new pkl Symptoms: have improved pkl Condition: Stable pkl Diagnosis - Chest pain. S/P Pulmonary embolism pkl Followup: pkl - With: Private Physician - When: Tomorrow - Reason: Re-evaluation by your physician Forms: - Medication Reconciliation Form pkl - Thank You Letter pkl - Antibiotic Education pkl - Prescription Opioid Use pkl Signatures: Dispatcher [employer] Tyler Montana MD MD pkl Jana Hinton RN RN Denise Santiago RN RN ll1
--- NOTE | 2021-07-30 11:48 | ER ---
Nurse's Notes [facility] Name: Isiah Hightower Age: 50 yrs Sex: Male : 1970 Arrival Date: 07/30/2021 Time: 09:58 Bed 4 Private MD: Diagnosis: Chest pain. S/P Pulmonary embolism Presentation: 07/30 10:02 Chief complaint: Patient states: left sided chest pressure started about 30 minutes iw ago, was d/c from hospital Thursday with PE, put on eliquis. Coronavirus screen: At this time, the client does not indicate any symptoms associated with coronavirus-19. Ebola Screen: Patient negative for fever greater than or equal to 101.5 degrees Fahrenheit, and additional compatible Ebola Virus Disease symptoms Patient denies exposure to infectious person. Patient denies travel to an Ebola-affected area in the 21 days before illness onset. No symptoms or risks identified at this time. Initial Sepsis Screen: Does the patient meet any 2 criteria? No. Patient's initial sepsis screen is negative. Does the patient have a suspected source of infection? No. Patient's initial sepsis screen is negative. Risk Assessment: Do you want to hurt yourself or someone else? Patient reports no desire to harm self or others. Onset of symptoms was July 30, 2021. 10:02 Method Of Arrival: Wheelchair iw 10:02 Acuity: AMIRAH 3 iw Triage Assessment: 10:04 General: Appears in no apparent distress. Behavior is calm, cooperative, appropriate ll1 for age. Pain: Complains of pain in L chest Quality of pain is described as pressure, Is continuous. Cardiovascular: Reports chest pain, Heart tones S1 S2 Capillary refill < 3 seconds Clubbing of nail beds is absent JVD is present Patient's skin is warm and dry. Chest pain. Respiratory: Breath sounds are clear bilaterally. Historical: - Allergies: 09:59 Hydrocodone-Acetaminophen; ll1 - Home Meds: 10:04 Eliquis oral [Active]; amlodipine oral [Active]; iw - PMHx: 09:59 chronic back pain; ll1 10:04 Hypertensive disorder; PE; iw - PSHx: 10:04 None; iw - Immunization history:: Client reports receiving the 2nd dose of the Covid vaccine. - Social history:: Smoking status: Patient denies any tobacco usage or history of. Screenin:05 Abuse screen: Denies threats or abuse. Nutritional screening: No deficits noted. ll1 Tuberculosis screening: No symptoms or risk factors identified. Fall Risk IV access (20 points). Total Petersen Fall Scale indicates No Risk (0-24 pts). Assessment: 11:00 Reassessment: No changes from previously documented assessment. Patient and/or family ll1 updated on plan of care and expected duration. Pain level reassessed. Patient is alert, oriented x 3, equal unlabored respirations, skin warm/dry/pink. 12:03 Reassessment: No changes from previously documented assessment. Patient and/or family ll1 updated on plan of care and expected duration. Pain level reassessed. Patient is alert, oriented x 3, equal unlabored respirations, skin warm/dry/pink. Patient denies pain at this time. Vital Signs: 10:02 Resp 18 S; Weight 102.97 kg; Height 6 ft. 1 in. (185.42 cm); Pain 7/10; iw 10:14 BP 115 / 79; Pulse 67; Resp 17; Pulse Ox 98% on R/A; Pain 7/10; ll1 11:00 Temp 98.8(TE); ll1 11:00 BP 109 / 75; Pulse 67; Resp 15; Pulse Ox 98% ; ll1 12:02 BP 125 / 83; Pulse 67; Resp 18; Pulse Ox 97% ; Pain 0/10; ll1 10:02 Body Mass Index 29.95 (102.97 kg, 185.42 cm) iw ED Course: 09:58 Patient arrived in ED. iw 09:59 Denise Marie, RN is Primary Nurse. ll1 09:59 Arm band placed on Patient placed in an exam room, on a stretcher. ll1 10:02 Tyler Julien MD is Attending Physician. pkl 10:04 Triage completed. iw 10:04 Inserted saline lock: 22 gauge in left antecubital area, using aseptic technique. Blood ll1 collected. 10:06 Patient has correct armband on for positive identification. Bed in low position. Call ll1 light in reach. Side rails up X 1. monitor car operator on. Pulse ox on. NIBP on. 11:10 XRAY Chest (1 view) In Process Unspecified. EDMS 11:11 CT Chest For PE Angio In Process Unspecified. EDMS 12:02 No provider procedures requiring assistance completed. IV discontinued, intact, ll1 bleeding controlled, No redness/swelling at site. Pressure dressing applied. Administered Medications: No medications were administered Outcome: 11:47 Discharge ordered by . zahira 12:02 Discharged to home ambulatory. ll1 12:02 Condition: stable 12:02 Discharge instructions given to patient, Instructed on discharge instructions, follow up and referral plans. Demonstrated understanding of instructions, follow-up care. 12:03 Patient left the ED. ll1 Signatures: Dispatcher [employer] EDMS Tyler Julien MD MD pkl Williams, Irene, RN RN Denise Santiago RN RN ll1
[2021-07-30 12:13] VITALS: TEMP 98.8
[2021-07-30 12:14] VITALS: BP 125/83; O2SAT 97
--- NOTE | 2021-07-31 11:23 | EKG ---
Test Date: 2021-07-30 Test Time: 10:04:15 Pneumatic System Conveyor Operator: GILBERTO MEASUREMENT RESULTS: Intervals: Rate: 67 AK: 184 QRSD: 104 QT: 372 QTc: 393 [place]: P: 65 AK: 184 QRS: 19 T: 60 INTERPRETIVE STATEMENTS: Normal sinus rhythm Incomplete right bundle branch block Borderline ECG Compared to ECG 07/26/2021 16:04:48 Sinus bradycardia no longer present Left ventricular hypertrophy no longer present Electronically Signed On 07-31-21 11:20:30 DEBRIDGING MACHINE OPERATOR by Ke Hernandez
--- OUTSIDE RECORDS SUMMARY | 2021-08-03 18:00 | XMS REPORT | Continuity of Care Document ---
:1970 Author Organization [facility] t Address [address] [place] [address] Care Team Providers Name Role Phone Pcp, [...] Number Effective Date Expiration Date Ovidio wang [facility] 9 [id number] 2018-01-192018 00:00:00 [employer] [id number] 2021 ADMINISTRATION 00:00:00 JAYRO WITH THAO [id number] 2020 SEYBOLD 00:00:00 Problems Condition Condition Condition Status Onset Resolution Last Treating Co mments Source Name Details Category Date Date Treatment Clinician Date Chest pain Chest pain Disease Active 2020-09 U preethi 09-23 ity of 00:00: [place] [address] Medical Branch Plantar Plantar Disease Active Thao fasciitis, fasciitis, 9-27 Se ybold bilateral bilateral 00:00: 00 No known No known Disease Unive rs active active ity of problems problems [facility] Low HDL Low HDL Disease Active Thao [...] Active Univers ALLERGIE Class ity of S [facility] Social History Social Habit Start Date Stop [...] Source Unknown if ever smoked Universit y [facility] Former smoker 2021-07-25 00:00:00 2021-07-25 00:00:00 [facility] Medical Branch Medications Ordered Filled Start Stop Current Ordering Indication Dosage Frequency Signature Comments Components Source Medication Medication Date Date Medication? Clinician (SIG) Name Name Apixaban 5 2020-09 Yes [id number] 5mg Take 1 K elsey MG oral [...] 30 mg 00 First dose Medical on [facility] 07/25/21 at 0900, Until Discontinu ed, Routine ondansetron 2020-09 Yes 4mg 4 mg, Slow Univers (ZOFRAN 1-04 IV Push, ity of (PF)) 07:15: Q6HPRN, [place] injection 4 46 Starting Medi lopez mg on [facility] 07/25/21 at 0215, Until Discontinu ed, Routine, Nausea and Vomiting (N/V) No known No Univers medications 05-22 ity of 14:56: [address] Branch cyclobenzap Yes TAKE ONE Un trace rine 10 mg 6-28 TABLET BY ity of tablet 00:00: MOUTH AT [place] 00 BEDTIME Medical A MUSCLE Branch RELAXANT Methyl Yes APPLY Univers Salicylate- 6-28 SMALL ity of Menthol 00:00: AMOUNT TO [place] 15-10 % 00 THE SKIN Medical Crea EVERY 12 Branch HOURS FOR RELIEF OF MUSCLE PAIN cyclobenzap Yes TAKE ONE Un trace rine 10 mg 6-28 TABLET BY ity of tablet 00:00: MOUTH AT [place] 00 BEDTIME Medical A MUSCLE Branch RELAXANT Methyl Yes APPLY Univers Salicylate- 6-28 SMALL ity of Menthol 00:00: AMOUNT TO [place] 15-10 % 00 THE SKIN Medical Crea EVERY 12 Branch HOURS FOR RELIEF OF MUSCLE PAIN cyclobenzap Yes TAKE ONE Un trace rine 10 mg 6-28 TABLET BY ity of tablet 00:00: MOUTH AT [place] [address] BEDTIME Medical A MUSCLE Branch RELAXANT Methyl 1-0 Yes APPLY Univers Salicylate- 6-28 SMALL ity of Menthol 00:00: AMOUNT TO [place] 15-10 % 00 THE SKIN Medical Crea EVERY 12 Branch HOURS FOR RELIEF OF MUSCLE PAIN cyclobenzap 2020-0 Yes TAKE ONE Un trace rine 10 mg 6-28 TABLET BY ity of tablet 00:00: MOUTH AT [place] [address] BEDTIME Medical A MUSCLE Branch RELAXANT Methyl 2020-0 Yes APPLY Univers Salicylate- 6-28 SMALL ity of Menthol 00:00: AMOUNT TO [place] 15-10 % 00 THE SKIN Medical Crea EVERY 12 Branch HOURS FOR RELIEF OF MUSCLE PAIN cyclobenzap 2020-0 Yes TAKE ONE Un trace rine 10 mg 6-28 TABLET BY ity of tablet 00:00: MOUTH AT [place] [address] BEDTIME Medical A MUSCLE Branch RELAXANT Methyl 2020-0 Yes APPLY Univers Salicylate- 6-28 SMALL ity of Menthol 00:00: AMOUNT TO [place] 15-10 % 00 THE SKIN Medical Crea EVERY 12 Branch HOURS FOR RELIEF OF MUSCLE PAIN meloxicam 1-0 Yes 15mg Take 15 mg Un trace 15 mg 6-08 by mouth. ity of tablet 00:00: [place] [facility] meloxicam 2021-0 Yes 15mg Take 15 mg Un trace 15 mg 6-08 by mouth. ity of tablet 00:00: [place] [facility] meloxicam 2021-0 Yes 15mg Take 15 mg Un trace 15 mg 6-08 by mouth. ity of tablet 00:00: [place] [facility] meloxicam 2021-0 Yes 15mg Take 15 mg Un trace 15 mg 6-08 by mouth. ity of tablet 00:00: [place] [facility] meloxicam 1-0 Yes 15mg Take 15 mg Un trace 15 mg 6-08 by mouth. ity of tablet 00:00: [place] [facility] Cyclobenzap 1-0 Yes [id number] 5mg Q.[id number] Take 1 Thao rine HCl 5 6-08 [id number] tablet (5 Seybold MG oral 00:00: 3D mg total) Tablet 00 by mouth 3 times daily as needed for muscle spasms Meloxicam 2021-0 Yes [id number] 15mg Take 1 K elsey 15 MG oral 6-08 tablet (15 Sey bold Tablet 00:00: mg total) 00 by mouth daily Cyclobenzap Yes [id number] 5mg Q.[id number] Take 1 Thao rine HCl 5 02-26 [id number] tablet (5 Seybold MG oral 00:00: 3D mg total) Tablet 00 by mouth 3 times daily as needed for muscle spasms Meloxicam 2020- No [id number] 15mg Take 1 Thao 15 MG oral [...] Completed Unive rsity of MODERNA VACCINE 00:00:00 [facility] [place] [facility] SARS-COV-2 COVID-19 2020-11-25 Completed Unive rsity of MODERNA VACCINE 00:00:00 [facility] [place] [facility] SARS-COV-2 COVID-19 2020-11-25 Completed Unive rsity of MODERNA VACCINE 00:00:00 [facility] [place] [facility] SARS-COV-2 COVID-19 2020-11-25 Completed Unive rsity of MODERNA VACCINE 00:00:00 [facility] [place] [facility] SARS-COV-2 COVID-19 2020-11-25 Completed Unive rsity of MODERNA VACCINE 00:00:00 [facility] [place] [facility] SARS-COV-2 COVID-19 2020-11-25 Completed Unive rsity of MODERNA VACCINE 00:00:00 [facility] [place] [facility] SARS-COV-2 COVID-19 2020-11-25 Completed Unive rsity of MODERNA VACCINE 00:00:00 [facility] [place] [facility] Covid-19 Vaccine 2020-11-25 Completed Thao hawkins (Moderna), Jay-lnp, 00:00:00 Jeremy Protein, Pf, 100 Mcg/0.5ml,IM Covid-19 Vaccine 2020-11-25 Completed Thao Nolan eybold (Moderna), Mrna-lnp, 00:00:00 Jeremy Protein, Pf, 100 Mcg/0.5ml,IM Covid-19 Vaccine 2020-11-25 Completed Thao Nolan eybold (Moderna), Mrna-lnp, 00:00:00 Jeremy Protein, Pf, 100 Mcg/0.5ml,IM Covid-19 Vaccine 2020-11-25 Completed Thao Nolan eybold (Moderna), Mrna-lnp, 00:00:00 Jeremy Protein, Pf, 100 Mcg/0.5ml,IM SARS-COV-2 COVID-19 2020-10-28 Completed Unive rsity of MODERNA VACCINE 00:00:00 [facility] Branch SARS-COV-2 COVID-19 2020-10-28 Completed Unive rsity of MODERNA VACCINE 00:00:00 [facility] Branch SARS-COV-2 COVID-19 2020-10-28 Completed Unive rsity of MODERNA VACCINE 00:00:00 [facility] Branch SARS-COV-2 COVID-19 2020-10-28 Completed Unive rsity of MODERNA VACCINE 00:00:00 [facility] Branch SARS-COV-2 COVID-19 2020-10-28 Completed Unive rsity of MODERNA VACCINE 00:00:00 [facility] [place] [facility] SARS-COV-2 COVID-19 2020-10-28 Completed Unive rsity of MODERNA VACCINE 00:00:00 [facility] Covid-19 Vaccine 2020-10-28 Completed Thao huffbold (Moderna), Mrna-lnp, 00:00:00 Jeremy Protein, Pf, 100 Mcg/0.5ml,IM Covid-19 Vaccine 2020-10-28 Completed Thoa Nolan eybold (Moderna), Mrna-lnp, 00:00:00 Jeremy Protein, Pf, 100 Mcg/0.5ml,IM Covid-19 Vaccine 2020-10-28 Completed Thao Nolan eybold (Moderna), Mrna-lnp, 00:00:00 Jeremy Protein, Pf, 100 Mcg/0.5ml,IM Covid-19 Vaccine 2020-10-28 Completed Thao hawkins (Moderna), Mrna-lnp, 00:00:00 Jeremy Protein, Pf, 100 Mcg/0.5ml,IM SARS-COV-2 COVID-19 2020-10-28 Completed Alison rsadryan of MODERNA VACCINE 00:00:00 [facility] Branch Influenza Virus 2020-07-12 Completed Thao Se [...] 2021-07-25 17:34:00 110 mm[Hg] [facility]iver [facility] Diastolic blood 2021-07-25 17:34:00 76 mm[Hg] Unive rsity of pressure [facility] Heart rate 2021-07-25 17:34:00 69 /min Universi [facility] Body temperature 2021-07-25 17:34:00 36.67 Moriah Univ ersity of [facility] Respiratory rate 2021-07-25 17:34:00 16 /min [facility] in 2021-07-25 17:34:00 95 /min [facility] blood by [facility] Pulse oximetry Branch Body weight 2021-07-25 08:16:00 102.967 [facility] BMI 2021-07-25 08:16:00 29.95 kg/m2 [facility] Systolic blood 2021-07-19 18:19:00 124 mm[Hg] [...] 19:56:00 137 mm[Hg] Univer sity of pressure [facility] Diastolic blood 2021-05-22 19:56:00 80 mm[Hg] Unive rsity of pressure [facility] Heart rate 2021-05-22 19:56:00 64 /min [facility] Body temperature 2021-05-22 19:56:00 36.72 Moriah [facility] Respiratory rate 2021-05-22 19:56:00 18 /min [facility] Body height 2021-05-22 19:56:00 185.4 cm [facility] Body weight 2021-05-22 19:56:00 103.239 kg [facility] BMI 2021-05-22 19:56:00 30.03 kg/m2 [facility] Oxygen saturation in 2021-05-22 19:56:00 96 /min [facility] Arterial blood by [facility] Pulse oximetry Branch Procedures Procedure Date / Time Performing Clinician Source Performed TROPONIN I 2021-07-25 15:22:00 Jorge Deleon [facility] TRANSTHORACIC ECHO (TTE) 2021-07-25 14:51:[address] [facility] COMPLETE [facility] TROPONIN I 2021-07-25 07:24:00 Fransisco Maria [facility] THYROID STIMULATING 2021-07-25 07:24:00 Fransisco Maria [facility] HORMONE [facility] LIPID PANEL (81913)(TOTAL 2021-07-25 07:24:00 Fransisco Maria [facility] CHOLESTEROL, [facility] TRIGLYCERIDES, HDL) COVID-19 (ID NOW RAPID 2021-07-25 00:59:00 Bonnie Moore [facility] TESTING) Medical Branch LAB ONLY COVID 2021-07-25 00:59:00 Bonnie Moore [facility] INTERPRETATION [facility] XR CHEST 1 VW 2021-07-24 23:15:47 Bonnie Moore [facility] TROPONIN I 2021-07-24 23:02:00 Bonnie Moore [facility] COMP. METABOLIC PANEL 2021-07-24 23:02:00 Bonnie Moore [facility] ([id number]) Medical Branch CBC WITH DIFF 2021-07-24 23:02:00 Bonnie Moore [facility] GLYCOSYLATED HEMOGLOBIN 2021-07-24 23:02:00 Fransisco Maria [facility] (A1C) [facility] N-TERMINAL PRO-BNP 2021-07-24 23:02:00 Bonnie Moore [facility] SLEEP STUDY DATA REPORT 2021-07-10 05:01:00 Doctor Unassigned, U [facility] [place] Medical [facility] ASSIGNMENT OF BENEFITS 2021-05-22 19:45:33 Doctor Unassigned, Un [facility] [place] Medical [facility] DME/SUPPLY JUSTIFICATION 2021-05-15 05:01:00 Doctor Unassfabian, [facility] Name Medical Branch Encounters Start End Encounter Admission Attending Care Care Encounter Source Date/Time Date/Time Type Type Clinicians Facility Department ID 2021-08-26 2021-08-26 Outpatient THAO OQUENDO [id number] Thao 08:00:00 08:00:00 APRIL lunsford 2021-08-07 2021-08-07 Outpatient R JENNIFER MCKEON [facility] [id number] [facility] 15:40:00 15:40:00 JENNIFER MCKEON [id number] ity [facility] 2021-08-01 2021-08-01 Outpatient THAO OQUENDO [id number] Thao 00:00:00 00:00:00 APRIL lunsford 2021-07-29 2021-07-29 Office Yakov Oquendo 1.2.840.114 [id number] Thao 10:12:53 10:42:53 Visit April Nguyen 350.1.13.13 Se elissa Somogyi 1.2.7.2.686 [id number] 2021-07-29 2021-07-29 Office Yakov Oquendo [id number] 10:12:53 10:42:53 Visit April Nguyen 350.1.13.13 Somogyi 1.2.7.2.686 [id number] 2021-07-26 2021-07-26 Outpatient THAO OQUENDO [id number] Thao 09:00:00 09:00:00 APRIL lunsford 2021-07-26 2021-07-26 Outpatient THAO OQUENDO [id number] Thao 00:00:00 00:00:00 APRIL lunsford 2021-07-24 2021-07-25 Outpatient X CROW [facility] [id number] Univers 16:44:00 14:11:00 [facility] 2021-07-[facility] 2021-07-25 Emergency Bonnie Moore S RUST 1.2.840.1 [id number] Univers 16:44:00 14:11:00 Fransisco [facility] 4.2.7[facility]2.686 [facility] [id number] [address] 2021-07-25 2021-07-25 Outpatient THAO OQUENDO [id number] Thao 00:00:00 00:00:00 APRIL lunfsord 2021-07-19 2021-07-19 Outpatient LAB90 THAO TAN [id number] Thao 14:15:00 14:15:00 Seybol d 2021-07-19 2021-07-19 Office Yakov Oquendo 1.2.840.114 [id number] Thao 13:16:34 13:46:34 Visit April [facility].1.13.13 [facility] 1.2.7.2.686 [id number] 2021-07-19 2021-07-19 Office Yakov Oquendo 1.2.840.114 [id number] 13:16:34 13:46:34 Visit April Nguyen 350.1.13.13 Somogyi 1.2.7.2.686 [id number] 2021-07-10 2021-07-10 Outpatient R [facility] [id number] Univers 19:30:00 19:30:00 [id number] [facility] 2021-07-10 2021-07-10 Outpatient R JENNIFER MCKEON [facility] [id number] Univers 19:30:00 19:30:00 JENNIFER MCKEON [facility] 2021-07-10 2021-07-10 Hand Presser 1, [facility] Sleep Lab Bed RUST 1. 2.840.114 [id number] Univers 15:33:52 18:03:52 Visit Jennifer Mckeon 350.1.13. 10 ity of [place] 4.2.7.2.686 [facility] [id number] [facility] 193 Branch 2021-07-10 2021-07-10 Orders Doctor RUDY 1.2.840.114 [id number] Univers 00:00:00 00:00:00 Only Unassigned, LEYLA 350.1.13.[address] [facility] 4.2.7.2.686 [facility] [id number] [facility] 009 Branch 2021-07-08 2021-07-08 Outpatient R [facility] [id number] Univers 16:45:00 16:45:00 [id number] ity [facility] 2021-07-08 2021-07-08 Laboratory Only, [facility] Test RUST 1.2.840. 114 [id number] Univers 16:17:16 16:32:16 Only Jennifer Mckeon 350.1.13. 10 ity of [place] 4.2.7.2.686 [facility] [id number] [facility] 353 Branch 2021-07-08 2021-07-08 Outpatient R JENNIFER MCKEON [facility] [id number] Univers 16:15:00 16:15:00 CLAY MCKEONL ity [facility] 2021-06-11 2021-06-11 Outpatient R [facility] [id number] Univers 19:30:00 19:30:00 [id number] ity [facility] 2021-06-11 2021-06-11 Outpatient R CLAY MCKEONL [facility] [id number] Univers 19:30:00 19:30:00 SURY MCKEONHIL ity [facility] 2021-06-07 2021-06-07 Outpatient R [facility] [id number] Univers 15:15:00 15:15:00 [id number] ity [facility] 2021-06-07 2021-06-07 Outpatient R [facility] [id number] Univers 15:15:00 15:15:00 ity [facility] 2021-05-22 2021-05-22 Office Mike RUST [id number] Univers 14:47:09 15:07:09 Visit Jennifer Reynoso 350.1.13.10 [place]2.[place] [facility] [id number] Ri dical nal 085 [facility] 2021-05-22 2021-05-22 Outpatient R JEANNIESURY BOOIMMANUEL [facility] [id number] Univers 15:00:00 15:00:00 JENNIFER MCKEON ity [facility] 2021-05-22 2021-05-22 Orders Doctor RUDY 1.2.840.114 [id number] Univers 00:00:00 00:00:00 Only Unassigned, LEYLA 350.1.13.10 ity of [place] [facility] 4.2.7.2.686 Tristan as [id number] [address] 2021-05-15 2021-05-15 Orders Doctor RUDY 1.2.840.114 [id number] Univers 00:00:00 00:00:00 Only Unassigned, LEYLA 350.1.13.[address] [place] [facility] 4.2.7.2.686 Tristan as [id number] [address] 2021-04-30 2021-04-30 Outpatient THAO LUI [id number] Thao 00:00:00 00:00:00 ROSALIO lunsford 2021-04-12 2021-04-12 Outpatient THAO LUI [id number] Thao 00:00:00 00:00:00 ROSALIO lunsford Results Test Description Test Time Test Comments Results Result Comments Source TROPONIN I 2021-07-25 17:58:33 Test Item Value Reference Range Interpretation Comme nts TROPONIN I (test code = 0.002 ng/mL See_Comment [Au tomated message] The 7745030754) system which ge nerated this result tra [...] biotin. Lab Interpretation Normal (test code = 11411-7) [facility])(TOTAL CHOLESTEROL, TRIGLYCERIDES, HDL)2021-07-25 09:12:49 Test Item Value Reference Range Interpretation Comments CHOL (test code = 148 mg/dL 120-200 3470787083) HDL (test code = 43 mg/dL >40 9876233647) HDLC RATIO (test code = See_Comment [Au tomated message] 2391478727) The system [employer] generated this result transmit noe reference range : <=5.0. The refe rence range was not u sed to interpret th is result as normal/abnormal . TRIG (test code = 56 mg/dL 30-170 0579032192) LDL CHOL (test code = 94 mg/dL See_Comment [Auto mated message] 26316-8) The system [employer] generated this result transmit noe reference range : <=160. The refe rence range was not u sed to interpret th is result as normal/abnormal . VLDL (test code = 11 mg/dL 5-60 7784560108) Lab Interpretation (test Normal code = 01887-7) [facility] [id number] 08:27:46 Test Item Value Reference Range Interpretation Comments TSH (test code = See_Comment [Automated message] 8329723095) The system [employer] generated this result transmitted ref erence range: 0.45 - 4 .70 mIU/L. The refe rence range was not u sed to interpret this result as normal/abnor mal. Lab Interpretation (test Normal code = 42903-8) [facility] [id number] 08:09:02 Test Item Value Reference Interpretation Comments Range TROPONIN I (test 0.003 ng/mL See_Comment [Automated code = 8792064370) message] The system which generated this result [...] biotin. Lab Interpretation Normal (test code = 81155-9) [facility] (A1C)2021-07-25 07:44:12 Test Item Value Reference Range Interpretation Comments HGB A1C (test code = 5.5 % 4.0-5.7 4548-4) LORI (test code = LORI) Reference RangesNormal: <5.7%Prediabetes: 5.7 - 6.4%Diabetes: > 6.5% Lab Interpretation (test Normal code = 25165-8) [facility] [id number] 23:43:41 Test Item Value Reference Interpretation Comments Range TROPONIN I (test 0.002 ng/mL See_Comment [Automated code = 0546157087) message] The system which generated this result [...] biotin. Lab Interpretation Normal (test code = 18170-7) [facility] [id number] 23:40:42 Test Item Value Reference Range Interpretation Comments NT-proBNP (test code 45 pg/mL See_Comment [Autom ated = 4761842564) message] The system which generated this result transmitted reference range : <=125. The reference range was not used to interpret this result as normal/abnormal . LORI (test code = LORI) Biotin has been reported to cause a negative bias, interpret results relative to patient's use of biotin. Lab Interpretation Normal (test code = 93529-1) [facility] MET[facility]OLIC PANEL (06375)2021-07-24 23:32:02 Test Item Value Reference Range Interpretation Comments NA (test code = 137 mmol/L 135-145 7811139439) K (test code = 3.9 mmol/L 3.5-5.0 2929696711) CL (test code = 106 mmol/L 98-108 7503461393) CO2 TOTAL (test code = 21 mmol/L 23-31 L 0647079416) AGAP (test code = 2-16 8813685341) BUN (test code = 20 mg/dL 7-23 6706525211) GLUCOSE (test code = 104 mg/dL 70-110 9587108496) CREATININE (test code = 1.08 mg/dL 0.60-1.25 8596065513) TOTAL BILI (test code = 0.4 mg/dL 0.1-1.0 7395164054) CALCIUM (test code = 9.3 mg/dL 8.6-10.6 8329094568) T PROTEIN (test code = 7.3 g/dL 6.3-8.2 3448924163) ALBUMIN (test code = 4.5 g/dL 3.5-5.0 6618576032) ALK PHOS (test code = 105 U/L 34-122 3252276332) ALTv (test code = 16 U/L 5-50 1742-6) AST(SGOT) (test code = 24 U/L 13-40 9105015770) eGFR (test code = mL/min/1.73m2 8112525677) LORI (test code = LORI) Association of [...] tests). Lab Interpretation Abnormal (test code = 87374-5) [facility] WITH [id number] 23:14:54 Test Item Value Reference Range Interpretation Comments WBC (test code = See_Comment [Automated message] 6690-2) The system [employer] generated this result transmitted ref erence range: 4.20 - 1 0.70 10*3/?L. The re ference range was not u sed to interpret this result as normal/abnor mal. RBC (test code = See_Comment [Automated message] 789-8) The system [employer] generated this result transmitted ref erence range: [...] RDW-SD (test code 41.8 fL 38.5-51.6 = 81702-1) RDW-CV (test code 12.7 % 12.1-15.4 = 788-0) PLT (test code = See_Comment [Automated message] 777-3) The system [employer] generated this result transmitted ref erence range: 150 - 32 8 10*3/?L. The re ference range was not u sed to interpret this result as normal/abnor mal. MPV (test code = 10.8 fL 9.8-13.0 03117-2) NRBC/100 WBC (test See_Comment [Automat ed message] code = 3393290928) The syste m which generated this result transmitted ref erence range: 0.0 - 10 .0 /100 WBCs. The refer ence range was not u sed to interpret this result as normal/abnor mal. NRBC x10^3 (test <0.01 See_Comment [Automated message] code = 5545682534) The syste m which generated this result transmitted ref erence range: 10*3/?L. The reference range was not used to interpr et this result as normal/abnormal . GRAN MAT (NEUT) % 67.7 % (test code = 770-8) IMM GRAN % (test 0.40 % code = 7112980867) LYMPH % (test code 22.4 % = 736-9) MONO % (test code 7.7 % = 5905-5) EOS % (test code = 1.4 % 713-8) BASO % (test code 0.4 % = 706-2) GRAN MAT 5.35 10*3/uL 1.99-6.95 x10^3(ANC) (test code = 9255676593) IMM GRAN x10^3 0.03 10*3/uL 0.00-0.06 (test code = 4445565567) LYMPH x10^3 (test 1.77 10*3/uL 1.09-3.23 code = 731-0) MONO x10^3 (test 0.61 10*3/uL 0.36-1.02 code = 742-7) EOS x10^3 (test 0.11 10*3/uL 0.06-0.53 code = 711-2) BASO x10^3 (test 0.03 10*3/uL 0.01-0.09 code = 704-7) [facility]"
== END 2021-07-30 12:03 | disposition home or self-care (01) ==
LOC: ER 09:55
DX: R07.9 Chest pain, unspecified (principal); I10 Essential (primary) hypertension; I26.99 Other pulmonary embolism without acute cor pulmonale
CPT/HCPCS: 93005; 85025; 80048; 36415; 83735; 85610; 80076; 84484; 83880; 71275; 71045; 99284; Q9967

== ENCOUNTER 2021-07-31 19:41 | Emergency (ER) | payer OTHER ==
[2021-07-31 20:54] LABS: Absolute Lymphocytes (CBC) 1.7 K/uL (0.7-4.9)
[2021-07-31 21:05] LABS: Basophils % 0.7 % (0-1.3); Hematocrit 41.1 % (39.6-49.0); Lymphocytes % 22.5 % (15.3-44.8); MPV 8.9 fL (7.6-11.3); RBC Red Blood Cell Count 4.54 M/uL (4.33-5.43)
[2021-07-31 21:21] LABS: BUN Blood Urea Nitrogen 18 mg/dL (7-18); Bicarbonate 25 mmol/L (21-32); Glucose Level 118 mg/dL (74-106); Magnesium 2.3 mg/dL (1.8-2.4); Potassium 3.4 mmol/L (3.5-5.1); Sodium Level 143 mmol/L (136-145); Troponin (Emerg Dept Use Only) < 0.02 ng/mL (0.0-0.045)
--- NOTE | 2021-07-31 21:31 | ER ---
Nurse's Notes [facility] Name: Isiah Hightower Age: 50 yrs Sex: Male : 1970 Arrival Date: 07/31/2021 Time: 19:43 Bed 8 Private MD: Diagnosis: Chest pain, unspecified Presentation: 07/31 19:47 Chief complaint: Patient states: Pt states he was diagnosed with PE last week; has come [facility] back multiple times but today states he has sharp chest pain that is midline and increase in his SOB. Coronavirus screen: Vaccine status: Patient reports receiving the 2nd dose of the covid vaccine. Date November 25, 2020 Client denies travel out of the [place] in the last 14 days. Ebola Screen: Patient negative for fever greater than or equal to 101.5 degrees Fahrenheit, and additional compatible Ebola Virus Disease symptoms Patient denies exposure to infectious person. Patient denies travel to an Ebola-affected area in the 21 days before illness onset. Initial Sepsis Screen: Does the patient meet any 2 criteria? No. Patient's initial sepsis screen is negative. Does the patient have a suspected source of infection? No. Patient's initial sepsis screen is negative. Risk Assessment: Do you want to hurt yourself or someone else? Patient reports no desire to harm self or others. Onset of symptoms was July 31, 2021 at 19:00. 19:47 Method Of Arrival: Ambulatory [facility] 19:47 Acuity: AMIRAH 4 jh5 Triage Assessment: 19:50 General: Appears in no apparent distress. well groomed, Behavior is calm, cooperative, [facility] appropriate for age. Pain: Complains of pain in chest Quality of pain is described as sharp. Cardiovascular: Reports chest pain, Capillary refill < 3 seconds Patient's skin is warm and dry. Respiratory: No deficits noted. Airway is patent Trachea midline Respiratory effort is even, unlabored, Respiratory pattern is regular. Historical: - Allergies: 19:49 Hydrocodone-Acetaminophen; [facility] - Home Meds: 19:49 amlodipine 5 mg oral tab 1 tab once daily [Active]; Eliquis Oral [Active]; [facility] - PMHx: 19:49 chronic back pain; Hypertensive disorder; PE; [facility] - Immunization history:: Adult Immunizations up to date. - Social history:: Smoking status: Patient denies any tobacco usage or history of. Screenin:30 Abuse screen: Denies threats or abuse. Denies injuries from another. dc2 21:30 Nutritional screening: No deficits noted. Tuberculosis screening: No symptoms or risk dc2 factors identified. Fall Risk None identified. No fall in past 12 months (0 pts). No secondary diagnosis (0 pts). No IV (0 pts). Ambulatory Aid- None/Bed Rest/Nurse Assist (0 pts). Gait- Normal/Bed Rest/Wheelchair (0 pts) Mental Status- Oriented to own ability (0 pts). Total Petersen Fall Scale indicates No Risk (0-24 pts). Assessment: 20:15 General: Appears in no apparent distress. Behavior is calm, cooperative. Pain: dc2 Complains of pain in diffuse chest pain with some lightheadedness. 20:15 Neuro: No deficits noted. Level of Consciousness is awake, alert, obeys commands, dc2 confused, Oriented to person, place, time, situation. Cardiovascular: Reports chest pain, lightheadedness, Heart tones present Rhythm is regular. Respiratory: Airway is patent Breath sounds are clear bilaterally. GI: No deficits noted. Abdomen is round non-distended, obese, Bowel sounds present X 4 quads. : No signs and/or symptoms were reported regarding the genitourinary system. Derm: No deficits noted. No signs and/or symptoms reported regarding the dermatologic system. Skin is intact, is healthy with good turgor. Musculoskeletal: No deficits noted. No signs and/or symptoms reported regarding the musculoskeletal system. 21:30 Pain: Denies pain. Pain does not radiate. dc2 Vital Signs: 19:47 BP 126 / 77; Pulse 77; Resp 18; Temp 98.1; Pulse Ox 98% ; jh5 21:30 BP 122 / 75; Pulse 79; Resp 17; Temp 98.0; Pulse Ox 99% on R/A; Pain 0/10; dc2 Vitals: 21:30 Cardiac Rhythm Assessment Regular Sinus rhythm. dc2 ED Course: 19:43 Patient arrived in ED. 19:49 Triage completed. jh5 20:01 Inna Rubio MD is Attending Physician. sp3 20:09 Eneida Toro is Primary Nurse. df1 20:15 Arm band placed on. dc2 20:15 Patient has correct armband on for positive identification. Placed in gown. Bed in low dc2 position. Call light in reach. Side rails up X 1. quality assurance monitor chassis on. Pulse ox on. NIBP on. Door closed. Lights dimmed. 20:45 Inserted saline lock: 20 gauge in right antecubital area, using aseptic technique. df1 20:45 Basic Metabolic Panel Sent. df1 20:45 CBC with Diff Sent. df1 20:45 Magnesium Sent. df1 20:45 Troponin (emerg Dept Use Only) Sent. df1 21:30 Ke Hernandez MD is Referral Physician. sp3 21:30 No provider procedures requiring assistance completed. dc2 21:30 IV discontinued, intact, bleeding controlled, No redness/swelling at site. Pressure dc2 dressing applied. Patient maintains SpO2 saturation greater than 95% on room air. Administered Medications: No medications were administered Outcome: 21:30 Discharge ordered by MD. sp3 21:40 Discharged to home ambulatory. dc2 21:40 Condition: good 21:40 Discharge instructions given to patient, Instructed on discharge instructions, Demonstrated understanding of instructions, follow-up care. 22:25 Patient left the ED. dc2 Signatures: Claire Mayes Inna Rubio MD MD sp3 Eneida Toro df1 Kenya Valentin RN ORTEGA dc2 Yasemin Franklin RN RN jh5 Corrections: (The following items were deleted from the chart) 22:19 22:07 General: Appears in no apparent distress. dc2 dc2
--- NOTE | 2021-07-31 21:31 | EDPHYS ---
Physician Documentation [facility] Name: Isiah Hightower Age: 50 yrs Sex: Male : 1970 Arrival Date: 07/31/2021 Time: 19:43 Bed 8 Private MD: ED Physician Inna Rubio HPI: 07/31 20:14 This 50 yrs old Male presents to ER via Ambulatory with complaints of Chest sp3 Pain > 30 y/o, Dizziness, Near Syncope. 20:14 50-year-old male recently discharged from the hospital for pulmonary embolism currently sp3 on Eliquis also has an appointment for outpatient stress test with Dr. Castañeda early next week now presents to the ED for mild chest pain and "lightheadedness". Patient was also seen yesterday where he had a repeat CT scan of the chest which showed essential resolution of the pulmonary embolism. Patient's troponin has been negative. He denies fever, URI symptoms, shortness of breath, abdominal pain, nausea, vomiting, diarrhea, neuro symptoms, any other ROS this time. Remainder of ROS are negative. Patient is ambulatory.. Historical: - Allergies: 19:49 Hydrocodone-Acetaminophen; 5 - Home Meds: 19:49 amlodipine 5 mg oral tab 1 tab once daily [Active]; Eliquis Oral [Active]; jh5 - PMHx: 19:49 chronic back pain; Hypertensive disorder; PE; jh5 - Immunization history:: Adult Immunizations up to date. - Social history:: Smoking status: Patient denies any tobacco usage or history of. ROS: 20:15 Constitutional: Negative for fever, chills, and weight loss, Eyes: Negative for injury, sp3 pain, redness, and discharge, ENT: Negative for injury, pain, and discharge, Neck: Negative for injury, pain, and swelling, Abdomen/GI: Negative for abdominal pain, nausea, vomiting, diarrhea, and constipation, Back: Negative for injury and pain, MS/Extremity: Negative for injury and deformity, Skin: Negative for injury, rash, and discoloration, Neuro: Negative for headache, weakness, numbness, tingling, and seizure, Psych: Negative for depression, anxiety, suicide ideation, homicidal ideation, and hallucinations, Allergy/Immunology: Negative for hives, rash, and allergies, Endocrine: Negative for neck swelling, polydipsia, polyuria, polyphagia, and marked weight changes. 20:15 All other systems are negative. Exam: 20:15 Constitutional: This is a well developed, well nourished patient who is awake, alert, sp3 and in no acute distress. Head/Face: Normocephalic, atraumatic. Eyes: Pupils equal round and reactive to light, extra-ocular motions intact. Lids and lashes normal. Conjunctiva and sclera are non-icteric and not injected. Cornea within normal limits. Periorbital areas with no swelling, redness, or edema. ENT: Nares patent. No nasal discharge, no septal abnormalities noted. External auditory canals are clear. Oropharynx with no redness, swelling, or masses, exudates, or evidence of obstruction, uvula midline. Mucous membranes moist. Neck: Trachea midline, no thyromegaly or masses palpated, and no cervical lymphadenopathy. Supple, full range of motion without nuchal rigidity, or vertebral point tenderness. No Meningismus. Chest/axilla: Normal chest wall appearance and motion. Nontender with no deformity. No lesions are appreciated. Cardiovascular: Regular rate and rhythm with a normal S1 and S2. No gallops, murmurs, or rubs. Normal PMI, no JVD. No pulse deficits. Respiratory: Lungs have equal breath sounds bilaterally, clear to auscultation and percussion. No rales, rhonchi or wheezes noted. No increased work of breathing, no retractions or nasal flaring. Abdomen/GI: Soft, non-tender, with normal bowel sounds. No distension or tympany. No guarding or rebound. No evidence of tenderness throughout. Back: No spinal tenderness. No costovertebral tenderness. Full range of motion. Skin: Warm, dry with normal turgor. Normal color with no rashes, no lesions, and no evidence of cellulitis. MS/ Extremity: Pulses equal, no cyanosis. Neurovascular intact. Full, normal range of motion. Neuro: Awake and alert, GCS 15, oriented to person, place, time, and situation. Cranial nerves II-XII grossly intact. Motor strength 5/5 in all extremities. Sensory grossly intact. Cerebellar exam normal. Normal gait. Psych: Awake, alert, with orientation to person, place and time. Behavior, mood, and affect are within normal limits. 20:53 ECG was reviewed by the Attending Physician. SpecificEKG demonstrates normal sinus sp3 rhythm at 70 bpm with normal intervals, normal QRS, normal axis, inferior ST/T changes without any elevations or evidence of ischemia. Vital Signs: 19:47 BP 126 / 77; Pulse 77; Resp 18; Temp 98.1; Pulse Ox 98% ; jh5 21:30 BP 122 / 75; Pulse 79; Resp 17; Temp 98.0; Pulse Ox 99% on R/A; Pain 0/10; dc2 MDM: 20:03 Patient medically screened. sp3 20:16 Data reviewed: vital signs, nurses notes. ED course: 50-year-old male with mild chest sp3 pain now status post pulmonary embolism and resolution of said embolism also has a follow-up outpatient stress test scheduled now presents again for mild chest pain and "lightheadedness since earlier this morning. Patient symptoms have been going on for over 10 hours and therefore one troponin especially since he has had multiple troponins recently should rule him out for cardiac event currently. Patient also follow-up with cardiology as scheduled.. 21:29 ED course: Troponin is negative and remainder laboratory values reviewed. Patient will sp3 be discharged with follow up with his refuge worker.. 07/31 20:10 Order name: Basic Metabolic Panel; Complete Time: 21:29 sp3 07/31 20:10 Order name: CBC with Diff; Complete Time: 21:11 sp3 07/31 20:10 Order name: Magnesium; Complete Time: 21:29 sp3 07/31 20:10 Order name: Troponin (emerg Dept Use Only); Complete Time: 21:29 sp3 07/31 20:10 Order name: EKG; Complete Time: 20:11 sp3 07/31 20:10 Order name: Cardiac monitoring; Complete Time: 20:45 sp3 07/31 20:10 Order name: EKG - Nurse/Tech; Complete Time: 20:45 sp3 07/31 20:10 Order name: Labs collected and sent; Complete Time: 20:45 sp3 07/31 20:10 Order name: O2 Sat Monitoring; Complete Time: 20:45 sp3 Administered Medications: No medications were administered Disposition Summary: 07/31/21 21:30 Discharge Ordered Location: Home sp3 Condition: Stable sp3 Diagnosis - Chest pain, unspecified sp3 Followup: sp3 - With: Ke Hernandez MD - When: Upon discharge from the Emergency Department - Reason: Continuance of care Discharge Instructions: - Discharge Summary Sheet sp3 - Nonspecific Chest Pain, Adult sp3 Forms: - Medication Reconciliation Form sp3 - Thank You Letter sp3 - Antibiotic Education sp3 - Prescription Opioid Use sp3 Signatures: Dispatcher [employer] Inna Rudolph MD MD sp3 Yasemin Franklin RN RN jh5
[2021-08-01 00:46] VITALS: BP 122/75; TEMP 98; O2SAT 99
--- NOTE | 2021-08-02 20:42 | EKG ---
Test Date: 2021-07-31 Test Time: 20:23:46 Store Hand: ODALIS MEASUREMENT RESULTS: Intervals: Rate: 69 AK: 196 QRSD: 110 QT: 380 QTc: 407 [place]: P: 62 AK: 196 QRS: -1 T: 40 INTERPRETIVE STATEMENTS: Normal sinus rhythm Incomplete right bundle branch block Borderline ECG Compared to ECG 07/31/2021 20:23:14 No significant changes Electronically Signed On 08-02-21 20:35:37 INSTRUCTOR HAIRSPRING by Ke Hernandez
--- NOTE | 2021-08-02 20:42 | EKG ---
Test Date: 2021-07-31 Test Time: 20:23:14 [facility] [facility] Chief: ODALIS MEASUREMENT RESULTS: Intervals: Rate: 76 IN: 194 QRSD: 110 QT: 376 QTc: 423 [place]: P: 64 IN: 194 QRS: 5 T: 48 INTERPRETIVE STATEMENTS: Normal sinus rhythm Incomplete right bundle branch block Borderline ECG Compared to ECG 07/30/2021 10:04:15 No significant changes Electronically Signed On 08-02-21 20:35:38 [employer] SUPERVIS[employer] by Ke Hernandez
--- OUTSIDE RECORDS SUMMARY | 2021-08-03 20:11 | XMS REPORT | Continuity of Care Document ---
:1970 Author Organization [facility] t Address [address] [place] [address] Care Team Providers Name Role Phone Pcp, Patient Does Not Have A Primary Care Physician [id number] SHELTON OQUENDO Attending Clinician Unavailable Amelia MCKEON Attending Clinician Unavailable Amelia MCKEON Attending Clinician Unavailable Shelton Oquendo MD Attending Clinician CROW Attending Clinician Unavailable Oscar CAPUTO S Attending Clinician Crow CARTER Attending Clinician LAB90 Attending Clinician Unavailable 1, Sleep Lab Bed Attending Clinician Unavailable Amelia Mckeon MD Attending Clinician Doctor Unassigned, Name Attending Clinician Unavailable Only, Test Attending Clinician Unavailable Rose Marie LUI Attending Clinician Unavailable CROW Admitting Clinician Unavailable Crow CARTER Admitting Clinician Payers Payer Name Policy Type Policy Number Effective Date Expiration Date Ovidio wang [facility] 9 [id number] 2018-01-192018 00:00:00 [employer] [id number] 2021 ADMINISTRATION 00:00:00 JAYRO WITH THAO [id number] 2020 BOUBACAROLD 00:00:00 Problems Condition Condition Condition Status Onset Resolution Last Treating Co mments Source Name Details Category Date Date Treatment Clinician Date Chest pain Chest pain Disease Active 2020-09 U preethi 09-23 ity of 00:00: [address] Branch Plantar Plantar Disease Active Thao fasciitis, fasciitis, 9-27 Se ybold bilateral bilateral 00:00: 00 No known No known Disease Unive rs active active ity of problems problems [facility] Low HDL Low HDL Disease Active Thao (under 40) (under 40) Se ybold Prediabete Prediabete Disease Active K elsey s s Seybold Smoker Smoker Disease Active Thao Seybreynold Keratoconu Keratoconu Disease Active K elsey s [...] Active Univers ALLERGIE Class ity of S [facility] Social History Social Habit Start Date Stop Date Quantity Comments Source History SDOH Thao Stringero ld Alcohol Frequency History SDOH Thao Petersen ld Alcohol Std Drinks History SDOH Thao Stringero sera Alcohol Binge Exposure to Not sure Thao lunsford SARS-CoV-2 (event) Alcohol intake 2021-07-29 2021-07-29 0 /d Thao Hauserkayla bold 00:00:00 00:00:00 Cigarettes smoked 2017-06-22 2017-06-22 Thao Ann current (pack per 00:00:00 00:00:00 day) - Reported Cigarette 2017-06-22 2017-06-22 Thao elissa pack-years 00:00:00 00:00:00 Tobacco use and 2017-06-22 2017-06-22 Smokeless tobacco Paco rogelio Stringerold exposure 00:00:00 00:00:00 non-user History of tobacco 2016-05-22 Cigarette Smoker Thao Ann use 00:00:00 Alcohol Comment 2015-07-11 2015-07-11 rare Thao bowers 00:00:00 00:00:00 [birth year] Thao Hauser ybold 00:00:00 00:00:00 Smoking Status Start Date Stop Date Source Unknown if ever smoked Universit y [facility] Former smoker 2021-07-25 00:00:00 2021-07-25 00:00:00 [facility] Branch Medications Ordered Filled Start Stop Current Ordering Indication Dosage Frequency Signature Comments Components Source Medication Medication Date Date Medication? Clinician (SIG) Name Name Apixaban 5 2020-09 Yes [id number] 5mg Take 1 K elsey MG oral -08 tablet (5 Seybold Tablet 00:00: mg total) 00 by mouth 2 times daily Amlodipine 2020-09 Yes Thao Besylate 5 -06 Seybold MG oral 00:00: Tablet 00 Folic Acid 2020-09 Yes Thao 1 MG oral -06 Seybold tablet 00:00: 00 enoxaparin 2020-09 Yes 30mg 30 mg, Unive rs (LOVENOX) -04 Subcutaneo ity of injection 14:00[place] 00 First dose Medical on [facility] Branch 07/25/21 at 0900, Until Discontinu ed, Routine ondansetron 2020-09 Yes 4mg 4 mg, Slow Univers (ZOFRAN 1-04 IV Push, ity of (PF)) 07:15: Q6HPRN, [place] injection 4 46 Starting Medi lopez mg on [facility] Branch 07/25/21 at 0215, Until Discontinu ed, Routine, Nausea and Vomiting (N/V) No known No Univers medications 05-22 ity of 14:56: [address] Branch cyclobenzap Yes TAKE ONE Un trace rine 10 mg 6-28 TABLET BY ity of tablet 00:00: MOUTH AT [place] 00 BEDTIME Medical A MUSCLE Branch RELAXANT Methyl Yes APPLY Univers Salicylate- 6-28 SMALL ity of Menthol 00:00: AMOUNT TO [place] 15-10 % 00 THE SKIN Medical Crea EVERY 12 Branch HOURS FOR RELIEF OF MUSCLE PAIN cyclobenzap Yes TAKE ONE Un trace rine 10 mg 6-28 TABLET BY ity of tablet 00:00: MOUTH AT [place] 00 BEDTIME Medical A MUSCLE Branch RELAXANT Methyl Yes APPLY Univers Salicylate- 6-28 SMALL ity of Menthol 00:00: AMOUNT TO [place] 15-10 % 00 THE SKIN Medical Crea EVERY 12 Branch HOURS FOR RELIEF OF MUSCLE PAIN cyclobenzap Yes TAKE ONE Un trace rine 10 mg 6-28 TABLET BY ity of tablet 00:00: MOUTH AT [place] [address] BEDTIME Medical A MUSCLE Branch RELAXANT Methyl 1-0 Yes APPLY Univers Salicylate- 6-28 SMALL ity of Menthol 00:00: AMOUNT TO [place] 15-10 % 00 THE SKIN Medical Crea EVERY 12 Branch HOURS FOR RELIEF OF MUSCLE PAIN cyclobenzap 2020-0 Yes TAKE ONE Un trace rine 10 mg 6-28 TABLET BY ity of tablet 00:00: MOUTH AT [place] [address] BEDTIME Medical A MUSCLE Branch RELAXANT Methyl 2020-0 Yes APPLY Univers Salicylate- 6-28 SMALL ity of Menthol 00:00: AMOUNT TO [place] 15-10 % 00 THE SKIN Medical Crea EVERY 12 Branch HOURS FOR RELIEF OF MUSCLE PAIN cyclobenzap 2020-0 Yes TAKE ONE Un trace rine 10 mg 6-28 TABLET BY ity of tablet 00:00: MOUTH AT [place] [address] BEDTIME Medical A MUSCLE Branch RELAXANT Methyl 2020-0 Yes APPLY Univers Salicylate- 6-28 SMALL ity of Menthol 00:00: AMOUNT TO [place] 15-10 % 00 THE SKIN Medical Crea EVERY 12 Branch HOURS FOR RELIEF OF MUSCLE PAIN meloxicam 2020-0 Yes 15mg Take 15 mg Un trace 15 mg 6-08 by mouth. ity of tablet 00:00: [place] [facility] meloxicam 2021-0 Yes 15mg Take 15 mg Un trace 15 mg 6-08 by mouth. ity of tablet 00:00: [place] [facility] meloxicam 2021-0 Yes 15mg Take 15 mg Un trace 15 mg 6-08 by mouth. ity of tablet 00:00: [place] [facility] meloxicam 2021-0 Yes 15mg Take 15 mg Un trace 15 mg 6-08 by mouth. ity of tablet 00:00: [place] [facility] meloxicam 1-0 Yes 15mg Take 15 mg Un trace 15 mg 6-08 by mouth. ity of tablet 00:00: [place] [facility] Cyclobenzap 1-0 Yes [id number] 5mg Q.[id number] Take 1 Thao rine HCl 5 6-08 [id number] tablet (5 Seybold MG oral 00:00: 3D mg total) Tablet 00 by mouth 3 times daily as needed for muscle spasms Meloxicam 2021-0 Yes [id number] 15mg Take 1 K elsey 15 MG oral 6-08 tablet (15 Sey bold Tablet 00:00: mg total) 00 by mouth daily Cyclobenzap Yes [id number] 5mg Q.[id number] Take 1 Thao rine HCl 5 02-26 [id number] tablet (5 Seybold MG oral 00:00: 3D mg total) Tablet 00 by mouth 3 times daily as needed for muscle spasms Meloxicam 2020- No [id number] 15mg Take 1 Thao 15 MG oral 02-26 tablet (15 Se ybold Tablet 00:00: 00:00 mg total) 00 :00 by mouth daily Immunizations Ordered Immunization Filled Immunization Date Status Commen ts Source Name Name Influenza Virus 2021-07-02 Completed Thao Hauser ybold Vaccine, Intradermal, 00:00:00 18-64 Yrs Influenza Virus 2021-07-02 Completed Thao Hauser ybold Vaccine, Intradermal, 00:00:00 18-64 Yrs SARS-COV-2 COVID-19 2020-11-25 Completed Unive rsity of MODERNA VACCINE 00:00:00 [facility] SARS-COV-2 COVID-19 2020-11-25 Completed Unive rsity of MODERNA VACCINE 00:00:00 [facility] SARS-COV-2 COVID-19 2020-11-25 Completed Unive rsity of MODERNA VACCINE 00:00:00 [facility] SARS-COV-2 COVID-19 2020-11-25 Completed Unive rsity of MODERNA VACCINE 00:00:00 [facility] SARS-COV-2 COVID-19 2020-11-25 Completed Unive rsity of MODERNA VACCINE 00:00:00 [facility] SARS-COV-2 COVID-19 2020-11-25 Completed Unive rsity of MODERNA VACCINE 00:00:00 [facility] SARS-COV-2 COVID-19 2020-11-25 Completed Unive rsity of MODERNA VACCINE 00:00:00 [facility] Covid-19 Vaccine 2020-11-25 Completed Thao hawkins (Moderna), [...] Completed Unive rsity of MODERNA VACCINE 00:00:00 [facility] Branch SARS-COV-2 COVID-19 2020-10-28 Completed Unive rsity of MODERNA VACCINE 00:00:00 [facility] SARS-COV-2 COVID-19 2020-10-28 Completed Unive rsity of MODERNA VACCINE 00:00:00 [facility] SARS-COV-2 COVID-19 2020-10-28 Completed Unive rsity of MODERNA VACCINE 00:00:00 [facility] Branch SARS-COV-2 COVID-19 2020-10-28 Completed Unive rsity of MODERNA VACCINE 00:00:00 [facility] SARS-COV-2 COVID-19 2020-10-28 Completed Unive rsity of MODERNA VACCINE 00:00:00 [facility] Branch Covid-19 Vaccine 2020-10-28 Completed Thao huffbold (Moderna), Mrna-lnp, 00:00:00 Jeremy Protein, Pf, 100 Mcg/0.5ml,IM Covid-19 Vaccine 2020-10-28 Completed Thao Nolan eybold (Moderna), Mrna-lnp, 00:00:00 Jeremy Protein, Pf, 100 Mcg/0.5ml,IM Covid-19 Vaccine 2020-10-28 Completed Thao Nolan eybold (Moderna), Mrna-lnp, 00:00:00 Jeremy Protein, Pf, 100 Mcg/0.5ml,IM SARS-COV-2 COVID-19 2020-10-28 Completed Unive rsity of MODERNA VACCINE 00:00:00 [facility] Branch Covid-19 Vaccine 2020-10-28 Completed Thao hawkins (Moderna), Mrna-lnp, 00:00:00 Jeremy Protein, Pf, 100 Mcg/0.5ml,IM Influenza Virus 2020-07-12 Completed Thao Se ybold [...] Heart rate 2021-07-29 16:14:00 71 /min Thao Nolan eybold Body temperature 2021-07-29 16:14:00 37.28 Moriah Lluvia ey Seybold Respiratory rate 2021-07-29 16:14:00 16 /min Lluvia huff Seybold Body height 2021-07-29 16:14:00 185.4 cm Thao Nolan eybold Body weight 2021-07-29 16:14:00 102.967 kg Thao Nolan eybold BMI 2021-07-29 16:14:00 29.95 kg/m2 Thao Nolan eybold Systolic blood 2021-07-25 17:34:00 110 mm[Hg] Univer sity of [facility] Diastolic blood 2021-07-25 17:34:00 76 mm[Hg] Unive rsity of pressure [facility] Heart rate 2021-07-25 17:34:00 69 /min Universi of [facility] Body temperature 2021-07-25 17:34:00 36.67 Moriah Univ ersity of [facility] Respiratory rate 2021-07-25 17:34:00 16 /min [facility] saturation in 2021-07-25 17:34:00 95 /min [facility] blood by [facility] Pulse oximetry Branch Body weight 2021-07-25 08:16:[address] [facility] BMI 2021-07-25 08:16:00 29.95 kg/m2 [facility] Systolic blood 2021-07-19 18:19:00 124 mm[Hg] Thao [...] 19:56:00 137 mm[Hg] Univer sity of pressure [facility] Diastolic blood 2021-05-22 19:56:00 80 mm[Hg] Unive rsity of [facility] Heart rate 2021-05-22 19:56:00 64 /min [facility] Body temperature 2021-05-22 19:56:00 36.72 Moriah [facility] Respiratory rate 2021-05-22 19:56:00 18 /min [facility] Body height 2021-05-22 19:56:00 185.4 cm [facility] Body weight 2021-05-22 19:56:00 103.239 kg [facility] BMI 2021-05-22 19:56:00 30.03 kg/m2 [facility] Oxygen saturation in 2021-05-22 19:56:00 96 /min [facility] blood by [facility] Pulse oximetry Branch Procedures Procedure Date / Time Performing Clinician Source Performed TROPONIN I 2021-07-25 15:22:00 Jorge Deleon [facility] TRANSTHORACIC ECHO (TTE) 2021-07-25 14:51:00 Fransisco Maria [facility] COMPLETE [facility] TROPONIN I 2021-07-25 07:24:00 Fransisco Maria [facility] THYROID STIMULATING 2021-07-25 07:24:00 Fransisco Maria [facility] HORMONE [facility] LIPID PANEL ([id number])(TOTAL 2021-07-25 07:24:00 Fransisco Maria [facility] CHOLESTEROL, [facility] TRIGLYCERIDES, HDL) COVID-19 (ID NOW RAPID 2021-07-25 00:59:00 Bonnie Moore [facility] TESTING) Medical Branch LAB ONLY COVID 2021-07-25 00:59:00 Bonnie Moore [facility] INTERPRETATION [facility] XR CHEST 1 VW 2021-07-24 23:15:47 Bonnie Moore [facility] TROPONIN I 2021-07-24 23:02:00 Bonnie Moore [facility] COMP. METABOLIC PANEL 2021-07-24 23:02:00 Bonnie Moore [facility] ([id number]) Medical Branch CBC WITH DIFF 2021-07-24 23:02:00 Bonnie Moore [facility] [place] [facility] GLYCOSYLATED HEMOGLOBIN 2021-07-24 23:02:00 Fransisco Maria [facility] (A1C) Medical Branch N-TERMINAL PRO-BNP 2021-07-24 23:02:00 Bonnie Moore [facility] SLEEP STUDY DATA REPORT 2021-07-10 05:01:00 Doctor Unassigned, U [facility] Noel Medical Branch ASSIGNMENT OF BENEFITS 2021-05-22 19:45:33 Doctor Unassigned, Un [facility] Noel Medical Branch DME/SUPPLY JUSTIFICATION 2021-05-15 05:01:00 Doctor Unassigned, [facility] Noel Medical Branch Encounters Start End Encounter Admission Attending Care Care Encounter Source Date/Time Date/Time Type Type Clinicians Facility Department ID 2021-08-26 2021-08-26 Outpatient THAO OQUENDO [id number] Thao 08:00:00 08:00:00 APRIL lunsford 2021-08-07 2021-08-07 Outpatient R JENNIFER MCKEON [facility] [id number] [facility] 15:40:00 15:40:00 JENNIFER MCKEON [id number] [facility] 2021-08-01 2021-08-01 Outpatient THAO OQUENDO [id number] Thao 00:00:00 00:00:00 APRIL lunsford 2021-07-29 2021-07-29 Office Yakov Oquendo [id number] Thao 10:12:53 10:42:53 Visit April Nguyen 350.1.13.13 Se elissa Somogyi 1.2.7.2.686 [id number] 2021-07-29 2021-07-29 Office Yakov Oquendo [id number] 10:12:53 10:42:53 Visit April Nguyen 350.1.13.13 Somogyi 1.2.7.2.686 [id number] 2021-07-26 2021-07-26 Outpatient THAO OQUENDO [id number] Thao 09:00:00 09:00:00 APRIL lunsford 2021-07-26 2021-07-26 Outpatient THAO OQUENDO [id number] Thao 00:00:00 00:00:00 APRIL lunsford 2021-07-24 2021-07-25 Outpatient X CROW [facility] [id number] Univers 16:44:00 14:11:00 [facility] 2021-07-24 2021-07-25 Emergency Bonnie Moore S [facility] 1.2.840.1 [id number] Univers 16:44:00 14:11:00 Fransisco Maria [place] [facility]13.[facility] 4.2.7.2.686 [facility] [id number] [address] 2021-07-25 2021-07-25 Outpatient THAO OQUENDO [id number] Thao 00:00:00 00:00:00 APRIL lunsford 2021-07-19 2021-07-19 Outpatient LAB90 THAO TAN [id number] Thao 14:15:00 14:15:00 Seybol jonn 2021-07-19 2021-07-19 Office Yakov Oquendo 1.2.840.114 [id number] 13:16:34 13:46:34 Visit April Nguyen 350.1.13.13 Somogyi 1.2.7.2.686 [id number] 2021-07-19 2021-07-19 Office Yakov Oquendo 1.2.840.114 [id number] Thao 13:16:34 13:46:34 Visit April Nguyen 350.1.13.13 Se ybold Somogyi 1.2.7.2.686 [id number] 2021-07-10 2021-07-10 Outpatient R [facility] [id number] Univers 19:30:00 19:30:00 [id number] [facility] 2021-07-10 2021-07-10 Outpatient R JENNIFER MCKEON [facility] [id number] Univers 19:30:00 19:30:00 JENNIFER MCKEON [facility] 2021-07-10 2021-07-10 Child Care Group Leader 1, [facility] Sleep Lab Bed [facility] 1. 2.840.114 [id number] Univers 15:33:52 18:03:52 Visit Jennifer Mckeon 350.1.13. 10 ity of [place] 4.2.7.2.686 [facility] [id number] [facility] 193 Branch 2021-07-10 2021-07-10 Orders Doctor RUDY 1.2.840.114 [id number] Univers 00:00:00 00:00:00 Only Unassigned, LEYLA 350.1.13.[address] [facility] 4.2.7.2.686 [facility] [id number] [facility] 009 Branch 2021-07-08 2021-07-08 Outpatient R [facility] [id number] Univers 16:45:00 16:45:00 [id number] ity [facility] 2021-07-08 2021-07-08 Laboratory Only, [facility] Test [facility] 1.2.840. 114 [id number] Univers 16:17:16 16:32:16 Only Jennifer Mckeon 350.1.13. 10 ity of [place] 4.2.7.2.686 [facility] [id number] [facility] 353 Branch 2021-07-08 2021-07-08 Outpatient R CLAY MCKEONL [facility] [id number] Univers 16:15:00 16:15:00 ATASURY BOOHIL ity [facility] 2021-06-11 2021-06-11 Outpatient R [facility] [id number] Univers 19:30:00 19:30:00 [id number] ity [facility] 2021-06-11 2021-06-11 Outpatient R MIKE STRAHIL [facility] [id number] Univers 19:30:00 19:30:00 JEANNIENASSURY ROSALESHIL ity [facility] 2021-06-07 2021-06-07 Outpatient R [facility] [id number] Univers 15:15:00 15:15:00 [id number] ity [facility] 2021-06-07 2021-06-07 Outpatient R [facility] [id number] Univers 15:15:00 15:15:00 ity [facility] 2021-05-22 2021-05-22 Office Mike [facility] [id number] Univers 14:47:09 15:07:09 Visit Jennifer Reynoso 350.1.13.10 ity [place].7.2.[place] [facility] [id number] [facility] 085 [facility] 2021-05-22 2021-05-22 Outpatient R JEANNIESURY BOOIMMANUEL [facility] [id number] Univers 15:00:00 15:00:00 JENNIFER MCKEON ity [facility] 2021-05-22 2021-05-22 Orders Doctor GRANT 1.2.840.114 [id number] Univers 00:00:00 00:00:00 Only Unassigned, LEYLA 350.1.13.10 ity of Noel [facility] 4.2.7.2.686 Tristan as [id number] [address] 2021-05-15 2021-05-15 Orders Doctor RUDY 1.2.840.114 [id number] Univers 00:00:00 00:00:00 Only Unassigned, LEYLA 350.1.13.10 ity of Noel [facility] 4.2.7.2.686 Tristan as [id number] [address] 2021-04-30 2021-04-30 Outpatient THAO LUI [id number] Thao 00:00:00 00:00:00 ROSALIO lunsford 2021-04-12 2021-04-12 Outpatient THAO LUI [id number] Thao 00:00:00 00:00:00 ROSALIO lunsford Results Test Description Test Time Test Comments Results Result Comments Source TROPONIN I 2021-07-25 17:58:33 Test Item Value Reference Range Interpretation Comme nts TROPONIN I (test code = 0.002 ng/mL See_Comment [Au tomated message] The [id number]) system which ge nerated this result tra [...] biotin. Lab Interpretation Normal (test code = 92844-7) [id number]TOTAL CHOLESTEROL, TRIGLYCERIDES, HDL)2021-07-25 09:12:49 Test Item Value Reference Range Interpretation Comments CHOL (test code = 148 mg/dL 120-200 9742748018) HDL (test code = 43 mg/dL >40 9957335316) HDLC RATIO (test code = See_Comment [Au tomated message] 8588207782) The system [employer] generated this result transmit noe reference range : <=5.0. The refe rence range was not u sed to interpret th is result as normal/abnormal . TRIG (test code = 56 mg/dL 30-170 6569416721) LDL CHOL (test code = 94 mg/dL See_Comment [Auto mated message] 80784-6) The system [employer] generated this result transmit noe reference range : <=160. The refe rence range was not u sed to interpret th is result as normal/abnormal . VLDL (test code = 11 mg/dL 5-60 4661413964) Lab Interpretation (test Normal code = 27217-4) [facility] [id number] 08:27:46 Test Item Value Reference Range Interpretation Comments TSH (test code = See_Comment [Automated message] [id number]) The system [employer] generated this result transmitted ref erence range: 0.45 - 4 .70 mIU/L. The refe rence range was not u sed to interpret this result as normal/abnor mal. Lab Interpretation (test Normal code = 58284-1) [facility] [id number] 08:09:02 Test Item Value Reference Interpretation Comments Range TROPONIN I (test 0.003 ng/mL See_Comment [Automated code = 4334876933) message] The system which generated this result [...] biotin. Lab Interpretation Normal (test code = 02893-9) [facility] (A1C)2021-07-25 07:44:12 Test Item Value Reference Range Interpretation Comments HGB A1C (test code = 5.5 % 4.0-5.7 4548-4) LORI (test code = LORI) Reference RangesNormal: <5.7%Prediabetes: 5.7 - 6.4%Diabetes: > 6.5% Lab Interpretation (test Normal code = 76751-5) [facility] [id number] 23:43:41 Test Item Value Reference Interpretation Comments Range TROPONIN I (test 0.002 ng/mL See_Comment [Automated code = 5007057561) message] The system which generated this result [...] biotin. Lab Interpretation Normal (test code = 63916-9) [facility] [id number] 23:40:42 Test Item Value Reference Range Interpretation Comments NT-proBNP (test code 45 pg/mL See_Comment [Autom ated = 3227284144) message] The system which generated this result transmitted reference range : <=125. The reference range was not used to interpret this result as normal/abnormal . LORI (test code = LORI) Biotin has been reported to cause a negative bias, interpret results relative to patient's use of biotin. Lab Interpretation Normal (test code = 27965-4) [facility] ([id number])2021-07-24 23:32:02 Test Item Value Reference Range Interpretation Comments NA (test code = 137 mmol/L 135-145 6133916381) K (test code = 3.9 mmol/L 3.5-5.0 1189104987) CL (test code = 106 mmol/L 98-108 2687707765) CO2 TOTAL (test code = 21 mmol/L 23-31 L 7451071511) AGAP (test code = 2-16 4228579372) BUN (test code = 20 mg/dL 7-23 2604525766) GLUCOSE (test code = 104 mg/dL 70-110 9920531797) CREATININE (test code = 1.08 mg/dL 0.60-1.25 2069841624) TOTAL BILI (test code = 0.4 mg/dL 0.1-1.2 0323092422) CALCIUM (test code = 9.3 mg/dL 8.6-10.6 1496129332) T PROTEIN (test code = 7.3 g/dL 6.3-8.2 4109034024) ALBUMIN (test code = 4.5 g/dL 3.5-5.0 7160279865) ALK PHOS (test code = 105 U/L 34-122 3202593928) ALTv (test code = 16 U/L 5-50 1742-6) AST(SGOT) (test code = 24 U/L 13-40 3885848732) eGFR (test code = mL/min/1.73m2 0750942355) LORI (test code = LORI) Association of [...] tests). Lab Interpretation Abnormal (test code = 13358-5) [facility] WITH [id number] 23:14:54 Test Item Value Reference Range Interpretation Comments WBC (test code = See_Comment [Automated message] 6690-2) The system [employer] generated this result transmitted ref erence range: 4.20 - 1 0.70 10*3/?L. The re ference range was not u sed to interpret this result as normal/abnor mal. RBC (test code = See_Comment [Automated message] 789-8) The system [employer] generated this result transmitted ref erence range: [...] RDW-SD (test code 41.8 fL 38.5-51.6 = 06542-7) RDW-CV (test code 12.7 % 12.1-15.4 = 788-0) PLT (test code = See_Comment [Automated message] 777-3) The system [employer] h generated this result transmitted ref erence range: 150 - 32 8 10*3/?L. The re ference range was not u sed to interpret this result as normal/abnor mal. MPV (test code = 10.8 fL 9.8-13.0 34586-1) NRBC/100 WBC (test See_Comment [Automat ed message] code = 5225699441) The syste m which generated this result transmitted ref erence range: 0.0 - 10 .0 /100 WBCs. The refer ence range was not u sed to interpret this result as normal/abnor mal. NRBC x10^3 (test <0.01 See_Comment [Automated message] code = 1320830413) The syste m which generated this result transmitted ref erence range: 10*3/?L. The reference range was not used to interpr et this result as normal/abnormal . GRAN MAT (NEUT) % 67.7 % (test code = 770-8) IMM GRAN % (test 0.40 % code = 2373523717) LYMPH % (test code 22.4 % = 736-9) MONO % (test code 7.7 % = 5905-5) EOS % (test code = 1.4 % 713-8) BASO % (test code 0.4 % = 706-2) GRAN MAT 5.35 10*3/uL 1.99-6.95 x10^3(ANC) (test code = 1102567169) IMM GRAN x10^3 0.03 10*3/uL 0.00-0.06 (test code = 9132378004) LYMPH x10^3 (test 1.77 10*3/uL 1.09-3.23 code = 731-0) MONO x10^3 (test 0.61 10*3/uL 0.36-1.02 code = 742-7) EOS x10^3 (test 0.11 10*3/uL 0.06-0.53 code = 711-2) BASO x10^3 (test 0.03 10*3/uL 0.01-0.09 code = 704-7) [facility]"
== END 2021-07-31 22:25 | disposition home or self-care (01) ==
LOC: ER 19:41
DX: R07.9 Chest pain, unspecified (principal); M54.9 Dorsalgia, unspecified; G89.29 Other chronic pain; I10 Essential (primary) hypertension; Z86.711 Personal history of pulmonary embolism; Z79.01 Long term (current) use of anticoagulants; Z88.6 Allergy status to analgesic agent
CPT/HCPCS: 36415; 80048; 83735; 84484; 85025; 93005; 99284

== ENCOUNTER 2021-08-06 20:32 | Inpatient (IN) | payer OTHER ==
--- OUTSIDE RECORDS SUMMARY | 2021-08-06 20:37 | XMS REPORT | Continuity of Care Document ---
:1970 Author Organization [facility] t Address [address] [place] [address] Care Team Providers Name Role Phone Pcp, Does Not Have A Primary Care Physician SHELTON OQUENDO Attending Clinician Unavailable Amelia MCKEON [...] Number Effective Date Expiration Date Ovidio wang [facility] 9 [id number] 2018-01-192018 00:00:00 [employer] [id number] 2021 ADMINISTRATION 00:00:00 JAYRO WITH THAO [id number] 2020 SEYBOLD 00:00:00 Problems Condition Condition Condition Status Onset Resolution Last Treating Co mments Source Name Details Category Date Date Treatment Clinician Date Chest pain Chest pain Disease Active 2020-09 U preethi 09-23 ity of 00:00: [place] [address] Medical Branch Plantar Plantar Disease Active Thao fasciitis, fasciitis, 9-27 Se ybold bilateral bilateral 00:00: 00 No known No known Disease Unive rs active active ity of problems problems [facility] Low HDL Low HDL Disease Active Thao [...] Active Univers ALLERGIE Class ity of S [facility] Social History Social Habit Start Date Stop Date Quantity Comments Source History SDOH Thao Stringero sera Alcohol Frequency History SDOH Thao Petersen ld Alcohol Std Drinks History SDOH Thao zamora Alcohol Binge Exposure to Not sure Thao lunsford SARS-CoV-2 (event) Alcohol intake 2021-07-29 2021-07-29 0 /d Thao aHuserkayla bold 00:00:00 00:00:00 Cigarettes smoked 2017-06-22 2017-06-22 Thao Ann current (pack per 00:00:00 00:00:00 day) - Reported Cigarette 2017-06-22 2017-06-22 Thao Ann pack-years 00:00:00 00:00:00 Tobacco use and 2017-06-22 2017-06-22 Smokeless tobacco Paco mercado Seybold exposure 00:00:00 00:00:00 non-user History of tobacco 2016-05-22 Cigarette Smoker Thao Ann use 00:00:00 Alcohol Comment 2015-07-11 2015-07-11 rare Thao Hauser ybreynold 00:00:00 00:00:00 [birth year] Thao Se ybold 00:00:00 00:00:00 Smoking Status Start Date Stop Date Source Unknown if ever smoked Universit y [facility] Former smoker 2021-07-25 00:00:2021-07-25 00:00:00 [facility] Medications Ordered Filled Start Stop Current Ordering Indication Dosage Frequency Signature Comments Components Source Medication Medication Date Date Medication? Clinician (SIG) Name Name Apixaban 5 2020-09 Yes [id number] 5mg Take 1 K elsey MG oral [...] 30 mg 00 First dose Medical on [facility] 07/25/21 at 0900, Until Discontinu ed, Routine ondansetron 2020-09 Yes 4mg 4 mg, Slow Univers (ZOFRAN 1-04 IV Push, ity of (PF)) 07:15: Q6HPRN, [place] injection 4 46 Starting Medi lopez mg on [facility] 07/25/21 at 0215, Until Discontinu ed, Routine, Nausea and Vomiting (N/V) No known No Univers medications 05-22 ity of 14:56: [place] 59 [facility] Branch cyclobenzap Yes TAKE ONE Un trace rine 10 mg 6-28 TABLET BY ity of tablet 00:00: MOUTH AT [place] 00 BEDTIME Medical A MUSCLE Branch RELAXANT Methyl Yes APPLY Univers Salicylate- 6-28 SMALL ity of Menthol 00:00: AMOUNT TO [place] 15-10 % 00 THE SKIN Medical Crea EVERY 12 Branch HOURS FOR RELIEF OF MUSCLE PAIN cyclobenzap Yes TAKE ONE Un trace rine 10 mg 6-28 TABLET BY ity of tablet 00:00: MOUTH AT [place] 00 BEDTIME Medical A MUSCLE Branch RELAXANT Methyl Yes APPLY Univers Salicylate- 6-28 SMALL ity of Menthol 00:00: AMOUNT TO [place] 15-10 % 00 THE SKIN Medical Crea EVERY 12 Branch HOURS FOR RELIEF OF MUSCLE PAIN cyclobenzap Yes TAKE ONE Un trace rine 10 mg 6-28 TABLET BY ity of tablet 00:00: MOUTH AT [place] [address] BEDTIME Medical A MUSCLE Branch RELAXANT Methyl 1-0 Yes APPLY Univers Salicylate- 6-28 SMALL ity of Menthol 00:00: AMOUNT TO [place] 15-10 % 00 THE SKIN Medical Crea EVERY 12 Branch HOURS FOR RELIEF OF MUSCLE PAIN cyclobenzap 2020-0 Yes TAKE ONE Un trace rine 10 mg 6-28 TABLET BY ity of tablet 00:00: MOUTH AT [place] [address] BEDTIME Medical A MUSCLE Branch RELAXANT Methyl 2020-0 Yes APPLY Univers Salicylate- 6-28 SMALL ity of Menthol 00:00: AMOUNT TO [place] 15-10 % 00 THE SKIN Medical Crea EVERY 12 Branch HOURS FOR RELIEF OF MUSCLE PAIN cyclobenzap 2020-0 Yes TAKE ONE Un trace rine 10 mg 6-28 TABLET BY ity of tablet 00:00: MOUTH AT [place] [address] BEDTIME Medical A MUSCLE Branch RELAXANT Methyl 2020-0 Yes APPLY Univers Salicylate- 6-28 SMALL ity of Menthol 00:00: AMOUNT TO [place] 15-10 % 00 THE SKIN Medical Crea EVERY 12 Branch HOURS FOR RELIEF OF MUSCLE PAIN meloxicam 1-0 Yes 15mg Take 15 mg Un trace 15 mg 6-08 by mouth. ity of tablet 00:00: [place] Medical Branch meloxicam 2021-0 Yes 15mg Take 15 mg Un trace 15 mg 6-08 by mouth. ity of tablet 00:00: [place] [facility] meloxicam 2021-0 Yes 15mg Take 15 mg Un trace 15 mg 6-08 by mouth. ity of tablet 00:00: [place] [facility] meloxicam 2021-0 Yes 15mg Take 15 mg Un trace 15 mg 6-08 by mouth. ity of tablet 00:00: [place] [facility] meloxicam 1-0 Yes 15mg Take 15 mg Un trace 15 mg 6-08 by mouth. ity of tablet 00:00: [place] [facility] Cyclobenzap 1-0 Yes [id number] 5mg Q.[id number] Take 1 Thao rine HCl 5 6-08 [id number] tablet (5 Seybold MG oral 00:00: 3D mg total) Tablet 00 by mouth 3 times daily as needed for muscle spasms Meloxicam 2021-0 Yes [id number] 15mg Take 1 K elsey 15 MG oral 6-08 tablet (15 Sey bold Tablet 00:00: mg total) 00 by mouth daily Cyclobenzap Yes [id number] 5mg Q.[id number] Take 1 Thao rine HCl 5 08 [id number] tablet (5 Seybold MG oral 00:00: 3D mg total) Tablet 00 by mouth 3 times daily as needed for muscle spasms Meloxicam 2020- No [id number] 15mg Take 1 Thao 15 MG oral 02-26 11-08 tablet (15 Se ybold Tablet 00:00: 00:00 mg total) 00 :00 by mouth daily Immunizations Ordered Immunization Filled Immunization Date Status Commen ts Source Name Name Influenza Virus 2021-07-02 Completed Thao Se ybold Vaccine, Intradermal, 00:00:00 18-64 Yrs Influenza Virus 2021-07-02 Completed Thao Hauser ybold Vaccine, Intradermal, 00:00:00 18-64 Yrs SARS-COV-2 COVID-19 2020-11-25 Completed Unive rsity of MODERNA VACCINE 00:00:00 [facility] SARS-COV-2 COVID-19 2020-11-25 Completed Unive rsity of MODERNA VACCINE 00:00:00 [facility] SARS-COV-2 COVID-19 2020-11-25 Completed Unive rsity of MODERNA VACCINE 00:00:00 [facility] SARS-COV-2 COVID-19 2020-11-25 Completed Unive rsity of MODERNA VACCINE 00:00:00 [facility] SARS-COV-2 COVID-19 2020-11-25 Completed Unive rsity of MODERNA VACCINE 00:00:00 [facility] SARS-COV-2 COVID-19 2020-11-25 Completed Unive rsity of MODERNA VACCINE 00:00:00 [facility] SARS-COV-2 COVID-19 2020-11-25 Completed Unive rsity of MODERNA VACCINE 00:00:00 [facility] Covid-19 Vaccine 2020-11-25 Completed Thao hawkins (Moderna), Jay-lnp, 00:00:00 Jeremy Protein, Pf, 100 Mcg/0.5ml,IM Covid-19 Vaccine 2020-11-25 Completed Thao huffbold (Moderna), Mrna-lnp, 00:00:00 Jeremy Protein, Pf, 100 Mcg/0.5ml,IM Covid-19 Vaccine 2020-11-25 Completed Thao Nolan eybold (Moderna), Mrna-lnp, 00:00:00 Jeremy Protein, Pf, 100 Mcg/0.5ml,IM Covid-19 Vaccine 2020-11-25 Completed Thao Nolan eybold (Moderna), Mrna-lnp, 00:00:00 Jeremy Protein, Pf, 100 Mcg/0.5ml,IM SARS-COV-2 COVID-19 2020-10-28 Completed Unive rsity of MODERNA VACCINE 00:00:00 [facility] SARS-COV-2 COVID-19 2020-10-28 Completed Unive rsity of MODERNA VACCINE 00:00:00 [facility] SARS-COV-2 COVID-19 2020-10-28 Completed Unive rsity of MODERNA VACCINE 00:00:00 [facility] SARS-COV-2 COVID-19 2020-10-28 Completed Unive rsity of MODERNA VACCINE 00:00:00 [facility] SARS-COV-2 COVID-19 2020-10-28 Completed Unive rsity of MODERNA VACCINE 00:00:00 [facility] SARS-COV-2 COVID-19 2020-10-28 Completed Unive rsity of MODERNA VACCINE 00:00:00 [facility] Branch Covid-19 Vaccine 2020-10-28 Completed Thao huffbold (Moderna), Mrna-lnp, 00:00:00 Jeremy Protein, Pf, 100 Mcg/0.5ml,IM Covid-19 Vaccine 2020-10-28 Completed Thao Nolan eybold (Moderna), Mrna-lnp, 00:00:00 Jeremy Protein, Pf, 100 Mcg/0.5ml,IM SARS-COV-2 COVID-19 2020-10-28 Completed Unive rsity of MODERNA VACCINE 00:00:00 [facility] ical Branch Covid-19 Vaccine 2020-10-28 Completed Thao S eybold (Moderna), Mrna-lnp, 00:00:00 Jeremy Protein, Pf, 100 Mcg/0.5ml,IM Covid-19 Vaccine 2020-10-28 Completed Thao S eybold (Moderna), Mrna-lnp, 00:00:00 Jeremy Protein, Pf, [...] eybold Systolic blood 2021-07-29 16:14:00 124 mm[Hg] Htao Seybold pressure Diastolic blood 2021-07-29 16:14:00 64 [...] 2021-07-25 17:34:00 110 mm[Hg] Univer sity of [facility] Diastolic blood 2021-07-25 17:34:00 76 mm[Hg] Unive rsity of pressure [facility] Heart rate 2021-07-25 17:34:00 69 /min [facility] Body temperature 2021-07-25 17:34:00 36.67 [facility] [facility] Respiratory rate 2021-07-25 17:34:00 16 /min [facility] Oxygen saturation in 2021-07-25 17:34:00 95 /min [facility] blood by [facility] Pulse oximetry Branch Body weight 2021-07-25 08:16:00 102.967 kg [facility] BMI 2021-07-25 08:16:00 29.95 kg/m2 [facility] Systolic blood 2021-07-19 18:19:00 124 mm[Hg] Thao [...] 19:56:00 137 mm[Hg] Univer sity of pressure [facility] Diastolic blood 2021-05-22 19:56:00 80 mm[Hg] Unive rsity of [facility] Heart rate 2021-05-22 19:56:00 64 /min [facility] Body temperature 2021-05-22 19:56:00 36.72 Moriah [facility] Respiratory rate 2021-05-22 19:56:00 18 /min [facility] Body height 2021-05-22 19:56:00 185.4 cm [facility] Body weight 2021-05-22 19:56:00 103.239 kg [facility] BMI 2021-05-22 19:56:00 30.03 kg/m2 [facility] Oxygen saturation in 2021-05-22 19:56:00 96 /min [facility] Arterial blood by [facility] Pulse oximetry Branch Procedures Procedure Date / Time Performing Clinician Source Performed TROPONIN I 2021-07-25 15:22:00 Joreg Deleon [facility] TRANSTHORACIC ECHO (TTE) 2021-07-25 14:51:00 Joseph Maria [facility] COMPLETE [facility] TROPONIN I 2021-07-25 07:24:00 Joseph Maria [facility] THYROID STIMULATING 2021-07-25 07:24:00 Joseph Maria [facility] HORMONE [facility] LIPID PANEL ([id number])(TOTAL 2021-07-25 07:24:00 Joseph [facility] CHOLESTEROL, [facility] TRIGLYCERIDES, HDL) COVID-19 (ID NOW RAPID 2021-07-25 00:59:00 Bonnie Moore [facility] TESTING) Medical Branch LAB ONLY COVID 2021-07-25 00:59:00 Bonnie Moore [facility] INTERPRETATION [facility] XR CHEST 1 VW 2021-07-24 23:15:47 Bonnie Moore [facility] TROPONIN I 2021-07-24 23:02:00 Bonnie Moore [facility] COMP. METABOLIC PANEL 2021-07-24 23:02:00 Bonnie Moore [facility] ([id number]) Medical Branch CBC WITH DIFF 2021-07-24 23:02:00 Bonnie Moore [facility] GLYCOSYLATED HEMOGLOBIN 2021-07-24 23:02:[address] [facility] (A1C) [facility] N-TERMINAL PRO-BNP 2021-07-24 23:02:[address] [facility] SLEEP STUDY DATA REPORT 2021-07-10 05:01:00 Doctor Unassigned, U [facility] [place] [facility] ASSIGNMENT OF BENEFITS 2021-05-22 19:45:33 Doctor Unassigned, Un [facility] [place] [facility] DME/SUPPLY JUSTIFICATION 2021-05-15 05:01:00 Doctor Unassfabian, [facility] Name Medical Branch Encounters Start End Encounter Admission Attending Care Care Encounter Source Date/Time Date/Time Type Type Clinicians Facility Department ID 2021-08-26 2021-08-26 Outpatient THAO OQUENDO [id number] Thao 08:00:00 08:00:00 APRIL lunsford 2021-08-07 2021-08-07 Outpatient R JENNIFER MCKEON [facility] [id number] Univers 15:40:00 15:40:00 JENNIFER MCKEON [id number] [facility] 2021-08-07 2021-08-07 Outpatient R JENNIFER MCKEON [facility] [id number] Univers 15:40:00 15:40:00 JENNIFER MCKEON [facility] 2021-08-06 2021-08-06 Outpatient THAO OQUENDO [id number] Thao 00:00:00 00:00:00 APRIL lunsford 2021-08-01 2021-08-01 Outpatient THAO OQUENDO [id number] Thao 00:00:00 00:00:00 APRIL lunsford 2021-07-29 2021-07-29 Office Yakov Oquendo 1.2.840.114 [id number] Thao 10:12:53 10:42:53 Visit April Nguyen [id number] Se elissa Quiroga 1.2.7.2.686 [id number] 2021-07-29 2021-07-29 Office Yakov Oquendo 1.2.840.114 [id number] 10:12:53 10:42:53 Visit April Nguyen 350.1.13.13 Somogyi 1.2.7.2.686 [id number] 2021-07-26 2021-07-26 Outpatient THAO OQUENDO [id number] Thao 09:00:00 09:00:00 APRIL Hauserybol d 2021-07-26 2021-07-26 Outpatient THAO OQUENDO [id number] Thao 00:00:00 00:00:00 APRIL Seybol d 2021-07-24 2021-07-25 Outpatient X [facility] [id number] Univers 16:44:00 14:11:00 JOSEPH kayla [facility] 2021-07-24 2021-07-25 Emergency Bonnie Moore [facility] 1.2.840.1 [id number] [facility] 16:44:00 14:11:00 Joseph Maria [facility]KATRINA 350.1.13.10 [facility] 4.2.7.2.686 [facility] [id number] [address] 2021-07-25 2021-07-25 Outpatient THAO OQUENDO [id number] Thao 00:00:00 00:00:00 APRIL Stringerol d 2021-07-19 2021-07-19 Outpatient LAB90 THAO OSUNA [id number] Thao 14:15:00 14:15:00 Seybol d 2021-07-19 2021-07-19 Office Yakov Oquendo 1.2.840.114 [id number] 13:16:34 13:46:34 Visit April Nguyen 350.1.13.13 Somogyi 1.2.7.2.686 [id number] 2021-07-19 2021-07-19 Office Yakov Oquendo 1.2.840.114 [id number] Thao 13:16:34 13:46:34 Visit April Nguyen 350.1.13.13 Se ybold Somogyi 1.2.7.2.686 [id number] 2021-07-10 2021-07-10 Outpatient R [facility] [id number] Univers 19:30:00 19:30:00 [id number] ity [facility] 2021-07-10 2021-07-10 Outpatient R JENNIFER MCKEON [facility] [id number] Univers 19:30:00 19:30:00 GERARDJOSECLAY ROSALESL ity [facility] 2021-07-10 2021-07-10 Supervisor Hardboard 1, [facility] Sleep Lab Bed [facility] 1. 2.840.114 [id number] Univers 15:33:52 18:03:52 Visit Jennifer Mckeon 350.1.13. 10 ity [facility] 4.2.7.2.686 [facility] [id number] [facility] 193 Branch 2021-07-10 2021-07-10 Orders Doctor RUDY 1.2.840.114 [id number] Univers 00:00:00 00:00:00 Only Unassigned, LEYLA 350.1.13.10 ity [facility] 4.2.7.2.686 [facility] [id number] [facility] 009 Branch 2021-07-08 2021-07-08 Outpatient R [facility] [id number] Univers 16:45:00 16:45:00 [id number] ity [facility] 2021-07-08 2021-07-08 Laboratory Only, [facility] Test [facility] 1.2.840. 114 [id number] Univers 16:17:16 16:32:16 Only Jennifer Mckeon 350.1.13. 10 ity [facility] 4.2.7.2.686 [facility] [id number] [facility] 353 Branch 2021-07-08 2021-07-08 Outpatient R JENNIFER MCKEON [facility] [id number] Univers 16:15:00 16:15:00 JENNIFER MCKEON ity [facility] 2021-06-11 2021-06-11 Outpatient R [facility] [id number] Univers 19:30:00 19:30:00 [id number] ity [facility] 2021-06-11 2021-06-11 Outpatient R CLAY MCKEONJoão [facility] [id number] Univers 19:30:00 19:30:00 JENNIFER MCKEON ity [facility] 2021-06-07 2021-06-07 Outpatient R [facility] [id number] Univers 15:15:00 15:15:00 [id number] ity [facility] 2021-06-07 2021-06-07 Outpatient R [facility] [id number] Univers 15:15:00 15:15:[facility] 2021-05-22 2021-05-22 Office Gerardpallavi [facility] [id number] Univers 14:47:09 15:07:09 Visit Jennifer Reynoso 350.1.13.10 ity [place] [id number] [address] 2021-05-22 2021-05-22 Outpatient R GERARDSURY BOOIMMANUEL [facility] [id number] Univers 15:00:00 15:00:00 [facility] 2021-05-22 2021-05-22 Orders Doctor RUDY 1.2.840.114 [id number] Univers 00:00:00 00:00:00 Only Unassigned, LEYLA 350.1.13.10 ity [facility] [place] [facility] 4.2.7.2.686 Tristan as [id number] [address] 2021-05-15 2021-05-15 Orders Doctor RUDY 1.2.840.114 [id number] Univers 00:00:00 00:00:00 Only Unassigned, LEYLA 350.1.13.10 ity [facility] [place] [facility] 4.2.7.2.686 Tristan as [id number] [address] 2021-04-30 2021-04-30 Outpatient THAO LUI [id number] Thao 00:00:00 00:00:00 ROSALIO lunsford 2021-04-12 2021-04-12 Outpatient THAO LUI [id number] [id number] Antonio Osuna 00:00:00 00:00:00 ROSALIO Sejordy lunsford Results Test Description Test Time Test Comments Results Result Comments Source TROPONIN I 2021-07-25 17:58:33 Test Item Value Reference Range Interpretation Comme nts TROPONIN I (test code = 0.002 ng/mL See_Comment [Au tomated message] The 6400806008) system which ge nerated this result tra [...] biotin. Lab Interpretation Normal (test code = 01871-4) [id number]TOTAL CHOLESTEROL, TRIGLYCERIDES, HDL)2021-07-25 09:12:49 Test Item Value Reference Range Interpretation Comments CHOL (test code = 148 mg/dL 120-200 8598923043) HDL (test code = 43 mg/dL >40 4157117010) HDLC RATIO (test code = See_Comment [Au tomated message] 2001202912) The system [employer] generated this result transmit noe reference range : <=5.0. The refe rence range was not u sed to interpret th is result as normal/abnormal . TRIG (test code = 56 mg/dL 30-170 1402504245) LDL CHOL (test code = 94 mg/dL See_Comment [Auto mated message] 59974-9) The system [employer] generated this result transmit noe reference range : <=160. The refe rence range was not u sed to interpret th is result as normal/abnormal . VLDL (test code = 11 mg/dL 5-60 2236401632) Lab Interpretation (test Normal code = 15244-9) [facility] [id number] 08:27:46 Test Item Value Reference Range Interpretation Comments TSH (test code = See_Comment [Automated message] 2954594208) The system [employer] generated this result transmitted ref erence range: 0.45 - 4 .70 mIU/L. The refe rence range was not u sed to interpret this result as normal/abnor mal. Lab Interpretation (test Normal code = 42280-9) [facility] [id number] 08:09:02 Test Item Value Reference Interpretation Comments Range TROPONIN I (test 0.003 ng/mL See_Comment [Automated code = 1370095389) message] The system which generated this result [...] biotin. Lab Interpretation Normal (test code = 61300-2) [facility] (A1C)2021-07-25 07:44:12 Test Item Value Reference Range Interpretation Comments HGB A1C (test code = 5.5 % 4.0-5.7 4548-4) LORI (test code = LORI) Reference RangesNormal: <5.7%Prediabetes: 5.7 - 6.4%Diabetes: > 6.5% Lab Interpretation (test Normal code = 58829-7) [facility] [id number] 23:43:41 Test Item Value Reference Interpretation Comments Range TROPONIN I (test 0.002 ng/mL See_Comment [Automated code = 0077058874) message] The system which generated this result [...] biotin. Lab Interpretation Normal (test code = 78013-6) [facility] [id number] 23:40:42 Test Item Value Reference Range Interpretation Comments NT-proBNP (test code 45 pg/mL See_Comment [Autom ated = 4660201220) message] The system which generated this result transmitted reference range : <=125. The reference range was not used to interpret this result as normal/abnormal . LORI (test code = LORI) Biotin has been reported to cause a negative bias, interpret results relative to patient's use of biotin. Lab Interpretation Normal (test code = 43930-6) [facility]. METABOLIC PANEL (87686)2021-07-24 23:32:02 Test Item Value Reference Range Interpretation Comments NA (test code = 137 mmol/L 135-145 6516416366) K (test code = 3.9 mmol/L 3.5-5.0 7211717253) CL (test code = 106 mmol/L 98-108 7552961004) CO2 TOTAL (test code = 21 mmol/L 23-31 L 5894938420) AGAP (test code = 2-16 2909674716) BUN (test code = 20 mg/dL 7-23 2288420285) GLUCOSE (test code = 104 mg/dL 70-110 8539149560) CREATININE (test code = 1.08 mg/dL 0.60-1.25 7568937791) TOTAL BILI (test code = 0.4 mg/dL 0.1-1.2 6449042769) CALCIUM (test code = 9.3 mg/dL 8.6-10.6 0888593568) T PROTEIN (test code = 7.3 g/dL 6.3-8.2 4760384924) ALBUMIN (test code = 4.5 g/dL 3.5-5.0 5422185301) ALK PHOS (test code = 105 U/L 34-122 3649214971) ALTv (test code = 16 U/L 5-50 1742-6) AST(SGOT) (test code = 24 U/L 13-40 8367057659) eGFR (test code = mL/min/1.73m2 7798952315) LORI (test code = LORI) Association of [...] tests). Lab Interpretation Abnormal (test code = 99953-9) [facility] WITH [id number] 23:14:54 Test Item Value Reference Range Interpretation Comments WBC (test code = See_Comment [Automated message] 1890-2) The system [employer] generated this result transmitted ref erence range: 4.20 - 1 0.70 10*3/?L. The re ference range was not u sed to interpret this result as normal/abnor mal. RBC (test code = See_Comment [Automated message] 629-8) The system [employer] generated this result transmitted ref erence range: [...] RDW-SD (test code 41.8 fL 38.5-51.6 = 12909-0) RDW-CV (test code 12.7 % 12.1-15.4 = 788-0) PLT (test code = See_Comment [Automated message] 897-3) The system [employer] generated this result transmitted ref erence range: 150 - 32 8 10*3/?L. The re ference range was not u sed to interpret this result as normal/abnor mal. MPV (test code = 10.8 fL 9.8-13.0 19789-9) NRBC/100 WBC (test See_Comment [Automat ed message] code = 3064681574) The syste [employer] which generated this result transmitted ref erence range: 0.0 - 10 .0 /100 WBCs. The refer ence range was not u sed to interpret this result as normal/abnor mal. NRBC x10^3 (test <0.01 See_Comment [Automated message] code = 9494609486) The syste m which generated this result transmitted ref erence range: 10*3/?L. The reference range was not used to interpr et this result as normal/abnormal . GRAN MAT (NEUT) % 67.7 % (test code = 770-8) IMM GRAN % (test 0.40 % code = 3970813353) LYMPH % (test code 22.4 % = 736-9) MONO % (test code 7.7 % = 5905-5) EOS % (test code = 1.4 % 713-8) BASO % (test code 0.4 % = 706-2) GRAN MAT 5.35 10*3/uL 1.99-6.95 x10^3(ANC) (test code = 0084931821) IMM GRAN x10^3 0.03 10*3/uL 0.00-0.06 (test code = 2993539179) LYMPH x10^3 (test 1.77 10*3/uL 1.09-3.23 code = 731-0) MONO x10^3 (test 0.61 10*3/uL 0.36-1.02 code = 742-7) EOS x10^3 (test 0.11 10*3/uL 0.06-0.53 code = 711-2) BASO x10^3 (test 0.03 10*3/uL 0.01-0.09 code = 704-7) [facility]"
[2021-08-06] MEDS ORDERED: ASPIRIN 81 MG CHEWABLE TABLET ONE (21:05)
[2021-08-06] MEDS ORDERED: NA CHLORIDE 0.9% 1,000 ML ONE (21:05)
--- NOTE | 2021-08-06 21:20 | RAD REPORT ---
EXAM DESCRIPTION: RAD - Chest Single View - 08/06/2021 9:03 pm CLINICAL HISTORY: CHEST PAIN COMPARISON: Chest Single View dated 07/30/2021; Chest Single View dated 07/26/2021; Chest Pa And Lat ( 2 Views) dated 04/26/2020 FINDINGS: Lines: None. Lungs: No evidence of edema or pneumonia. Pleural: No significant pleural effusions or pneumothorax. Cardiac: The heart size is within normal limits. Bones: No acute fractures. Other: IMPRESSION: No acute cardiopulmonary disease.
--- NOTE | 2021-08-06 21:28 | ER ---
Nurse's Notes [facility] Name: Isiah Hightower Age: 50 yrs Sex: Male : 1970 Arrival Date: 08/06/2021 Time: 20:35 Bed 5 Private MD: Diagnosis: Chest pain, unspecified;Pulmonary embolism without acute cor pulmonale-recent history of;Essential (primary) hypertension Presentation: 08/06 20:59 Chief complaint: Patient states: Chest pain across entire upper chest. 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 Second episode today. Pt released 2 weeks prior for PE. Scheduled for stress test on Aug 20. Coronavirus screen: Vaccine status: Patient reports receiving the 2nd dose of the covid vaccine. Client denies travel out of the [place] in the last 14 days. At this time, the client does not indicate any symptoms associated with coronavirus-19. Ebola Screen: Patient negative for fever greater than or equal to 101.5 degrees Fahrenheit, and additional compatible Ebola Virus Disease symptoms Patient denies exposure to infectious person. Patient denies travel to an Ebola-affected area in the 21 days before illness onset. Initial Sepsis Screen: Does the patient meet any 2 criteria? No. Patient's initial sepsis screen is negative. Does the patient have a suspected source of infection? No. Patient's initial sepsis screen is negative. Risk Assessment: Do you want to hurt yourself or someone else? Patient reports no desire to harm self or others. Onset of symptoms was August 06, 2021 at 20:00. 20:59 Method Of Arrival: Wheelchair df1 20:59 Acuity: AMIRAH 3 df1 Triage Assessment: 21:03 General: Appears in no apparent distress. Behavior is calm, cooperative. df1 Historical: - Allergies: 21:01 Hydrocodone-Acetaminophen; df1 - Home Meds: 21:01 amlodipine 5 mg tab 1 tab once daily [Active]; Eliquis 5 mg oral tab 1 tab 2 times per df1 day [Active]; citalopram 20 mg tab 1 tab once daily [Active]; - PMHx: 21:01 chronic back pain; Hypertensive disorder; PE; df1 - PSHx: 21:01 None; df1 - Immunization history:: Adult Immunizations up to date, Client reports receiving the 2nd dose of the Covid vaccine. - Family history:: not pertinent. - Social history:: Smoking status: Patient/guardian denies using tobacco, the patient reports quitting approximately 4 years ago. Screenin:02 Abuse screen: Denies threats or abuse. Nutritional screening: No deficits noted. df1 Tuberculosis screening: No symptoms or risk factors identified. Fall Risk None identified. Assessment: 22:43 General: Reports " I started feeling some chest tightness around 815 today. Usually it tw5 goes away but it didn't. This chest tightness has been going off and on for about two weeks now.". 23:27 Pain: Pain began this evening around 830. Cardiovascular: Rhythm is regular. tw5 23:30 Pain: Pain does not radiate. tw5 Vital Signs: 20:59 BP 122 / 78; Pulse 73; Resp 18; Temp 98.5(O); Pulse Ox 100% on R/A; Weight 102.06 kg; df1 Height 6 ft. 1 in. (185.42 cm); Pain 7/10; 22:43 BP 126 / 79; Pulse 67; Resp 14; Pulse Ox 100% on R/A; tw5 23:30 BP 107 / 69; Pulse 58; Resp 14; Pulse Ox 100% on R/A; Pain 0/10; tw5 20:59 Body Mass Index 29.68 (102.06 kg, 185.42 cm) df1 ED Course: 20:35 Patient arrived in ED. cf2 20:40 Todd Hayes MD is Attending Physician. carlos 21:01 Triage completed. df1 21:02 Patient has correct armband on for positive identification. Placed in gown. Bed in low df1 position. Call light in reach. Side rails up X 1. Adult w/ patient. creative services designer on. Pulse ox on. NIBP on. 21:02 No provider procedures requiring assistance completed. Inserted saline lock: 20 gauge df1 in right antecubital area, using aseptic technique. Patient maintains SpO2 saturation greater than 95% on room air. 21:03 XRAY Chest (1 view) In Process Unspecified. EDMS 21:03 Arm band placed on right wrist. df1 21:16 Magnesium Sent. df1 21:16 Liver (Hepatic) Function Sent. df1 21:16 CBC with Automated Diff Sent. df1 21:16 Basic Metabolic Panel Sent. df1 21:16 SARS-COV-2 RT PCR (Document "Date of Onset" if Symptomatic) Sent. df1 21:16 Troponin (emerg Dept Use Only) Sent. df1 21:16 PT-INR Sent. df1 21:16 NT PRO-BNP Sent. df1 21:16 Basic Metabolic Panel Sent. df1 21:16 CBC with Diff Sent. df1 21:16 LFT's Sent. df1 21:16 Magnesium Sent. df1 21:16 Lipase Sent. df1 21:24 Wilton Wall is Hospitalizing Provider. [facility] 21:28 CT Chest For PE Angio In Process Unspecified. EDMS 22:01 US Extremity Venous W Compression Jeremy In Process Unspecified. EDMS 22:05 Meme Nolan is Primary Nurse. tw5 23:30 Patient admitted, IV remains in place. tw5 Administered Medications: 20:59 CANCELLED (Duplicate Order): Aspirin Chewable Tablet 324 mg PO once; 81 mg tablets x 4 carlos 21:15 Drug: Aspirin Chewable Tablet 162 mg Route: PO; df1 22:23 Follow up: Response: No adverse reaction bs2 21:16 Drug: NS 0.9% 1000 ml Route: IV; Rate: 1 bolus; Site: right antecubital; df1 23:31 Follow up: IV Status: Infusion continued upon admission tw5 22:54 Drug: Lopressor (metoprolol TARTRATE)) 25 mg Route: PO; tw5 23:31 Follow up: Response: No adverse reaction tw5 Outcome: 21:28 Decision to Hospitalize by Provider. [facility] 23:26 Admitted to Med/surg accompanied by nurse, via wheelchair, room 423, with chart, Report tw5 called to Lynda VIVAS 23:26 Condition: stable 23:26 Instructed on the need for admit. 23:31 Patient left the ED. tw5 Signatures: Dispatcher [employer] EDTodd Berry MD MD cha Frazier, [place] cf2 Jemma Green, RN RN bs2 Eneida Toro df1 Meme Nolan tw5
--- NOTE | 2021-08-06 21:28 | EDPHYS ---
Physician Documentation [facility] Name: Isiah Hightower Age: 50 yrs Sex: Male : 1970 Arrival Date: 08/06/2021 Time: 20:35 Bed 5 Private MD: ED Physician Todd Hayes HPI: 08/06 20:59 This 50 yrs old Male presents to ER via Unassigned with complaints of Chest carlos Tightness, Chest Pain, Breathing Difficulty. 20:59 The patient or guardian reports chest pain that is located primarily in the substernal carlos area, anterior chest wall. Onset: just prior to arrival. The pain does not radiate. Associated signs and symptoms: Pertinent positives: shortness of breath. The chest pain is described as squeezing. Duration: The patient or guardian reports multiple episodes, that have now resolved. Modifying factors: The symptoms are alleviated by nothing. the symptoms are aggravated by nothing. Severity of pain: At its worst the pain was moderate in the emergency department the pain has improved moderately. The patient has experienced a previous episode, last week. Historical: - Allergies: 21:01 Hydrocodone-Acetaminophen; df1 - Home Meds: 21:01 amlodipine 5 mg tab 1 tab once daily [Active]; Eliquis 5 mg oral tab 1 tab 2 times per df1 day [Active]; citalopram 20 mg tab 1 tab once daily [Active]; - PMHx: 21:01 chronic back pain; Hypertensive disorder; PE; df1 - PSHx: 21:01 None; df1 - Immunization history:: Adult Immunizations up to date, Client reports receiving the 2nd dose of the Covid vaccine. - Family history:: not pertinent. - Social history:: Smoking status: Patient/guardian denies using tobacco, the patient reports quitting approximately 4 years ago. ROS: 20:59 Constitutional: Negative for fever, chills, and weight loss, Eyes: Negative for injury, carlos pain, redness, and discharge, ENT: Negative for injury, pain, and discharge, Neck: Negative for injury, pain, and swelling, Respiratory: Negative for shortness of breath, cough, wheezing, and pleuritic chest pain, Abdomen/GI: Negative for abdominal pain, nausea, vomiting, diarrhea, and constipation, Back: Negative for injury and pain, : Negative for injury, bleeding, discharge, and swelling, MS/Extremity: Negative for injury and deformity, Skin: Negative for injury, rash, and discoloration, Neuro: Negative for headache, weakness, numbness, tingling, and seizure, Psych: Negative for depression, anxiety, suicide ideation, homicidal ideation, and hallucinations, Allergy/Immunology: Negative for hives, rash, and allergies, Endocrine: Negative for neck swelling, polydipsia, polyuria, polyphagia, and marked weight changes, Hematologic/Lymphatic: Negative for swollen nodes, abnormal bleeding, and unusual bruising. 20:59 Cardiovascular: Positive for chest pain, of the chest. Exam: 20:59 Constitutional: This is a well developed, well nourished patient who is awake, alert, carlos and in no acute distress. Head/Face: Normocephalic, atraumatic. Eyes: Pupils equal round and reactive to light, extra-ocular motions intact. Lids and lashes normal. Conjunctiva and sclera are non-icteric and not injected. Cornea within normal limits. Periorbital areas with no swelling, redness, or edema. ENT: Nares patent. No nasal discharge, no septal abnormalities noted. Tympanic membranes are normal and external auditory canals are clear. Oropharynx with no redness, swelling, or masses, exudates, or evidence of obstruction, uvula midline. Mucous membranes moist. Neck: Trachea midline, no thyromegaly or masses palpated, and no cervical lymphadenopathy. Supple, full range of motion without nuchal rigidity, or vertebral point tenderness. No Meningismus. Chest/axilla: Normal chest wall appearance and motion. Nontender with no deformity. No lesions are appreciated. Cardiovascular: Regular rate and rhythm with a normal S1 and S2. No gallops, murmurs, or rubs. Normal PMI, no JVD. No pulse deficits. Respiratory: Lungs have equal breath sounds bilaterally, clear to auscultation and percussion. No rales, rhonchi or wheezes noted. No increased work of breathing, no retractions or nasal flaring. Abdomen/GI: Soft, non-tender, with normal bowel sounds. No distension or tympany. No guarding or rebound. No evidence of tenderness throughout. Back: No spinal tenderness. No costovertebral tenderness. Full range of motion. Skin: Warm, dry with normal turgor. Normal color with no rashes, no lesions, and no evidence of cellulitis. MS/ Extremity: Pulses equal, no cyanosis. Neurovascular intact. Full, normal range of motion. Neuro: Awake and alert, GCS 15, oriented to person, place, time, and situation. Cranial nerves II-XII grossly intact. Motor strength 5/5 in all extremities. Sensory grossly intact. Cerebellar exam normal. Normal gait. Psych: Awake, alert, with orientation to person, place and time. Behavior, mood, and affect are within normal limits. 20:59 Musculoskeletal/extremity: ROM: full active range of motion, full passive range of motion, Circulation is intact in all extremities. Sensation intact. Compartment Syndrome exam of affected extremity: is normal. DVT Exam: No signs of deep vein thrombosis. no pain, no swelling, no tenderness, negative Homans' sign noted on exam, no appreciated bluish discoloration, no erythema, no increased warmth. 21:03 ECG was reviewed by the Attending Physician. [facility] Vital Signs: 20:59 BP 122 / 78; Pulse 73; Resp 18; Temp 98.5(O); Pulse Ox 100% on R/A; Weight 102.06 kg; df1 Height 6 ft. 1 in. (185.42 cm); Pain 7/10; 22:43 BP 126 / 79; Pulse 67; Resp 14; Pulse Ox 100% on R/A; tw5 23:30 BP 107 / 69; Pulse 58; Resp 14; Pulse Ox 100% on R/A; Pain 0/10; tw5 20:59 Body Mass Index 29.68 (102.06 kg, 185.42 cm) df1 MDM: 20:52 Patient medically screened. [facility] 21:04 Differential diagnosis: abnormal EKG, acute myocardial infarction, acute pericarditis, carlos anxiety, coronary artery disease chest wall pain, cholecystitis, Cholelithiasis pancreatitis, pneumonia, pneumothorax, pulmonary embolus, stable angina, unstable angina. HEART Score: History: Slightly Suspicious (0), ECG: Normal (0), Age: > 45 and < 65 years (1), Risk Factors: > or = 3 Risk factors for atherosclerotic disease (2), [Hypercholesterolemia] [Hypertension] [+ Family HX] [Obesity] Troponin: < or = 1 x Normal Limit (0). The patient was given aspirin in the Emergency Department. The patient's deep vein thrombosis risk score was calculated as follows: Total Score: 0. This patient was found to be at low risk for a deep vein thrombosis by using the Well's assessment criteria. The patient's pulmonary embolism risk score was calculated as follows: the patient has a history of a previous deep vein thrombosis or pulmonary embolism (1.5 Pts) Total Score: 0-2 points. This patient was found to be at low risk for a pulmonary embolism by using the Well's assessment criteria. NICK Risk Score: 1 - Three or more CAD risk factors, TOTAL SCORE = 1. Data reviewed: vital signs, nurses notes, lab test result(s), EKG, radiologic studies, CT scan, doppler, plain films. Data interpreted: manager monitoring: rate is 73 beats/min, rhythm is regular, Pulse oximetry: on room air is 73 %. Test interpretation: by ED physician or midlevel provider: ECG, plain radiologic studies. Counseling: I had a detailed discussion with the patient and/or guardian regarding: the historical points, exam findings, and any diagnostic results supporting the discharge/admit diagnosis, lab results, radiology results, the need for further work-up and treatment in the hospital. 08/06 20:42 Order name: Basic Metabolic Panel [facility] 08/06 20:42 Order name: CBC with Diff [facility] 08/06 20:42 Order name: LFT's [facility] 08/06 20:42 Order name: Magnesium [facility] 08/06 20:42 Order name: NT PRO-BNP; Complete Time: 22:15 [facility] 08/06 20:42 Order name: PT-INR; Complete Time: 21:48 [facility] 08/06 20:42 Order name: Troponin (emerg Dept Use Only); Complete Time: 22:15 [facility] 08/06 20:42 Order name: Lipase; Complete Time: 22:15 [facility] 08/06 20:42 Order name: SARS-COV-2 RT PCR (Document "Date of Onset" if Symptomatic) [facility] 08/06 20:42 Order name: Basic Metabolic Panel; Complete Time: 22:14 EDMS 08/06 20:42 Order name: CBC with Automated Diff; Complete Time: 21:48 EDMS 08/06 20:42 Order name: Liver (Hepatic) Function; Complete Time: 22:14 EDMS 08/06 20:42 Order name: Magnesium; Complete Time: 22:15 EDAK 08/06 23:07 Order name: CREATININE WHOLE BLOOD [facility] 08/06 20:42 Order name: XRAY Chest (1 view); Complete Time: 21:48 [facility] 08/06 20:42 Order name: EKG; Complete Time: 20:43 [facility] 08/06 20:42 Order name: Cardiac monitoring; Complete Time: 21:10 [facility] 08/06 20:42 Order name: EKG - Nurse/Tech; Complete Time: 21:04 [facility] 08/06 20:42 Order name: IV Saline Lock; Complete Time: 21:04 [facility] 08/06 20:42 Order name: Labs collected and sent; Complete Time: 21:10 [facility] 08/06 20:42 Order name: O2 Per Protocol; Complete Time: 21:04 [facility] 08/06 20:42 Order name: O2 Sat Monitoring; Complete Time: 21:04 [facility] 08/06 20:59 Order name: CT Chest For PE Angio; Complete Time: 22:15 [facility] 08/06 20:59 Order name: US Extremity Venous W Compression Jeremy [facility] 08/06 22:31 Order name: CONS Physician Consult [facility] 08/06 23:15 Order name: Urine Dipstick-Ancillary [facility] 08/06 20:42 Order name: Urine Dipstick-Ancillary (obtain specimen); Complete Time: 23:31 [facility] EC:03 Rate is 64 beats/min. Rhythm is regular. QRS [place] is Normal. MI interval is normal. QRS carlos interval is normal. QT interval is normal. No Q waves. T waves are Normal. No ST changes noted. Clinical impression: NSR w/ Non-specific ST/T Changes and No evidence of ischemia. Interpreted by me. Reviewed by me. Administered Medications: 20:59 CANCELLED (Duplicate Order): Aspirin Chewable Tablet 324 mg PO once; 81 mg tablets x 4 carlos 21:15 Drug: Aspirin Chewable Tablet 162 mg Route: PO; df1 22:23 Follow up: Response: No adverse reaction bs2 21:16 Drug: NS 0.9% 1000 ml Route: IV; Rate: 1 bolus; Site: right antecubital; df1 23:31 Follow up: IV Status: Infusion continued upon admission tw5 22:54 Drug: Lopressor (metoprolol TARTRATE)) 25 mg Route: PO; tw5 23:31 Follow up: Response: No adverse reaction tw5 Disposition Summary: 08/06/21 21:28 Hospitalization Ordered Hospitalization Status: Observation carlos Provider: Wilton Wall cha Location: Telemetry/MedSurg (observation) carlos Condition: Fair carlos Problem: new carlos Symptoms: have improved carlos Bed/Room Type: Standard [facility] Room Assignment: 423(08/06/21 23:17) Diagnosis - Chest pain, unspecified carlos - Pulmonary embolism without acute cor pulmonale - recent history of carlos - Essential (primary) hypertension carlos Forms: - Medication Reconciliation Form carlos - SBAR form carlos Signatures: Dispatcher [employer] EDTodd Berry MD MD cha Garcia, Cindy, RN RN Eneida Toro df1 Meme Nolan tw5 Jemma Green RN bs2 Corrections: (The following items were deleted from the chart) 20:59 20:42 Aspirin Chewable Tablet 324 mg PO once; 81 mg tablets x 4 ordered. [facility] :17 21:28 carlos cg
[2021-08-06 21:31] LABS: Protime INR 1.26
[2021-08-06 21:32] LABS: Absolute Lymphocytes (CBC) 2.2 K/uL (0.7-4.9); Basophils % 0.3 % (0-1.3); Hematocrit 42.1 % (39.6-49.0); Lymphocytes % 25.5 % (15.3-44.8); MPV 8.8 fL (7.6-11.3); RBC Red Blood Cell Count 4.66 M/uL (4.33-5.43)
--- NOTE | 2021-08-06 21:53 | RAD REPORT ---
EXAM DESCRIPTION: CT - Chest For Pe Angio - 08/06/2021 9:28 pm CLINICAL HISTORY: CHEST PAIN COMPARISON: Chest For Pe Angio dated 07/30/2021; Chest For Pe Angio dated 07/26/2021 FINDINGS: Chest Wall: No suspicious thyroid nodules or pathologic lymphadenopathy. Lungs: No acute abnormality. Pleura: No significant effusions or pneumothorax. Mediastinum/patricia: No pathologic lymphadenopathy. Small hiatal hernia. Pulmonary arteries/Aorta: No filling defect identified. No aortic aneurysm. Heart: No significant pericardial effusion. Normal heart size. Upper abdomen: No acute abnormality. Bones: No acute abnormality. All CT scans are performed using dose optimization technique as appropriate and may include automated exposure control or mA/KV adjustment according to patient size. IMPRESSION: Negative for pulmonary embolism. No acute findings within the chest.
[2021-08-06 21:59] LABS: ALT/SGPT 31 U/L (12-78); AST/SGOT 21 U/L (15-37); Albumin 4.1 g/dL (3.4-5.0); Alkaline Phosphatase 109 U/L (45-117); BUN Blood Urea Nitrogen 14 mg/dL (7-18); Bicarbonate 23 mmol/L (21-32); Bilirubin Direct 0.1 mg/dL (0-0.2); Bilirubin Total 0.4 mg/dL (0.2-1.0); Glucose Level 107 mg/dL (74-106); Lipase 258 U/L (73-393); Magnesium 2.3 mg/dL (1.8-2.4); NT PRO-BNP 20 pg/mL (<125); Potassium 4.1 mmol/L (3.5-5.1); Protein, Total 7.7 g/dL (6.4-8.2); Sodium Level 141 mmol/L (136-145); Troponin (Emerg Dept Use Only) < 0.02 ng/mL (0.0-0.045)
[2021-08-06] MEDS ORDERED: METOPROLOL TAR 25 MG TAB ONE (22:30)
--- NOTE | 2021-08-06 23:07 | P.HP ---
Certification for Inpatient Patient admitted to: Observation With expected LOS: <2 Midnights Patient will require the following post-hospital care: None Practitioner: I am a practitioner with admitting privileges, knowledge of patient current condition, hospital course, and medical plan of care. Services: Services provided to patient in accordance with Admission requirements found in Title 42 Section 412.3 of the Code of Federal Regulations Patient History Date of Service: 08/06/21 Reason for admission: chest pain History of Present Illness: Mr. Hightower is a 50 yo M with history of pulmonary embolism, HTN, depression, CURTIS who presents with 9/10 squeezing chest pain and SOB beginning today at 8:15 pm. He says pain was all across chest and lasted for 20 minutes. In the past, he says the pain has been left sided and sharp. He says he had chest pain earlier in the morning but at that time it felt more like anxiety. Reports sweats. Denies nausea and vomiting. Has recently seen a brim welt sewing machine operator and is scheduled to have an ECHO and stress test in the coming weeks. He recently had a PE and is on eliquis 5mg BID. Repeat CTPE with no evidence of pulmonary embolism. Allergies hydrocodone [Hydrocodone] Allergy (Intermediate, Verified 10/07/12 06:39) Itching Home Medications: Amlodipine [Norvasc*] 5 mg PO DAILY #30 tab 07/27/21 Apixaban [Eliquis] 10 mg PO BID #74 tab 07/27/21 Aspirin [Aspirin EC] 81 mg PO DAILY #30 tablet. 07/27/21 Folic Acid 1 mg PO DAILY #30 tablet 07/27/21 - Past Medical/Surgical History Diabetic: No -: sleep apnea -: pulmonary embolism -: HTN -: depression Past Surgical History: Patient denies surgical history - Family History Family History: Reviewed- Non-Contributory - Social History Smoking Status: Never smoker Alcohol use: No CD- Drugs: No Caffeine use: Yes Place of Residence: Home Review of Systems 10-point ROS is otherwise unremarkable General: Sweats Respiratory: Shortness of Breath Cardiovascular: Chest Pain Physical Examination - Physical Exam General: Alert, In no apparent distress HEENT: Atraumatic, PERRLA, Mucous membr. moist/pink, EOMI, Sclerae nonicteric Neck: Supple, 2+ carotid pulse no bruit, No LAD, Without JVD or thyroid abnormality Respiratory: Clear to auscultation bilaterally, Normal air movement Cardiovascular: Regular rate/rhythm, Normal S1 S2 Gastrointestinal: Normal bowel sounds, No tenderness Musculoskeletal: No tenderness Integumentary: No rashes Neurological: Normal gait, Normal speech, Normal strength at 5/5 x4 extr, Normal tone, Normal affect Lymphatics: No axilla or inguinal lymphadenopathy - Studies Laboratory Data (last 24 hrs) 08/06/21 21:10: PT 14.5 H, INR 1.26 08/06/21 21:10: WBC 8.80 D, Hgb 14.4, Hct 42.1, Plt Count 236 08/06/21 21:10: Sodium 141, Potassium 4.1, BUN 14, Creatinine 1.23, Glucose 107 H, Magnesium 2.3, Total Bilirubin 0.4, AST 21, ALT 31, Alkaline Phosphatase 109, Lipase 258 Assessment and Plan - Problems (Diagnosis) (1) Chest pain Current Visit: No Status: Acute Qualifiers: (2) Essential hypertension Current Visit: No Status: Chronic (3) Pulmonary embolism Current Visit: No Status: Resolved Qualifiers: Pulmonary embolism type: single subsegmental (without acute cor pulmonale) Qualified Code(s): I26.93 - Single subsegmental pulmonary embolism without acute cor pulmonale - Plan cardiology consulted ECHO and stress test in the AM pain management as needed continue eliquis, amlodipine, ASA and folic acid Discharge Plan: Home Plan to discharge in: 24 Hours - Advance Directives Does patient have a Living Will: No Does patient have a Durable POA for Healthcare: No - Code Status/Comfort Care Code Status Assessed: Yes (full code ) Critical Care: No Time Spent Managing Pts Care (In Minutes): 70
[2021-08-06 23:14] LABS: Urine Blood Negative (Negative); Urine Glucose Negative (Negative); Urine Protein Negative (Negative)
[2021-08-06] MEDS ORDERED: ONDANSETRON 4 MG/2 ML VIAL IV PRN (23:47)
[2021-08-06] MEDS ORDERED: ACETAMINOPHEN 500 MG TAB PO PRN (23:47)
[2021-08-06] MEDS ORDERED: MORPHINE 2 MG/ML SYR IV PRN (23:47)
[2021-08-07 00:20] VITALS: BMI 29.9
[2021-08-07 03:50] LABS: Basophils % 0.4 % (0-1.3); Hematocrit 39.1 % (39.6-49.0); Lymphocytes % 25.4 % (15.3-44.8); MPV 8.7 fL (7.6-11.3); RBC Red Blood Cell Count 4.31 M/uL (4.33-5.43)
[2021-08-07 04:02] LABS: ALT/SGPT 26 U/L (12-78); AST/SGOT 18 U/L (15-37); Albumin 3.6 g/dL (3.4-5.0); Alkaline Phosphatase 88 U/L (45-117); BUN Blood Urea Nitrogen 13 mg/dL (7-18); Bicarbonate 26 mmol/L (21-32); Bilirubin Total 0.5 mg/dL (0.2-1.0); Glucose Level 102 mg/dL (74-106); Magnesium 2.3 mg/dL (1.8-2.4); Phosphorus 2.6 mg/dL (2.5-4.9); Potassium 4.2 mmol/L (3.5-5.1); Protein, Total 6.7 g/dL (6.4-8.2); Sodium Level 142 mmol/L (136-145); Troponin I < 0.02 ng/mL (0.0-0.045)
--- NOTE | 2021-08-07 07:00 | RAD REPORT ---
EXAM DESCRIPTION: US - Extrem Venous W Compress Jeremy - 08/06/2021 10:01 pm CLINICAL HISTORY: Pain COMPARISON: None. TECHNIQUE: Real-time sonographic evaluation of the bilateral lower extremity deep venous systems was performed. FINDINGS: Normal compressibility, flow augmentation, phasic flow and spontaneous flow is identified in both the left and right lower extremity deep venous systems. No intraluminal filling defects seen. IMPRESSION: No DVT in either lower extremity.
[2021-08-07] MEDS ORDERED: REGADENOSON 0.4 MG/5 ML SYR IV ONE (08:55)
[2021-08-07] MEDS ORDERED: APIXABAN 5 MG TABLET PO SCH (09:00)
[2021-08-07] MEDS: AMLODIPINE 5 MG TAB PO SCH (11:48)
[2021-08-07] MEDS: ASPIRIN EC 81 MG TAB PO SCH (11:48)
[2021-08-07] MEDS: FOLIC ACID 1 MG TABLET PO SCH (11:48)
--- NOTE | 2021-08-07 12:32 | RAD REPORT ---
EXAM DESCRIPTION: NM - Rest Stress Cardiac Imaging - 08/07/2021 11:48 am CLINICAL HISTORY: Chest pain COMPARISON: None. TECHNIQUE: The patient was administered 10.8 mCi of Tc 99m Sestamibi prior to resting SPECT imaging of the heart. The patient was then administered 30.3 mCi of Tc 99m Sestamibi following exercise or ph armacologic stress. Multiplanar SPECT images were reviewed. FINDINGS: The end diastolic volume is 122 ml, the end systolic volume is 53 ml, and the ejection fra ction is 57 %. There is a large fixed defect in the inferior wall from base to apex. This is favored to be scarring over diaphragm attenuation artifact. There is a small focus of moderately diminished activity seen in the anterior wall near the apex on stress imaging not present on the rest sequencing. IMPRESSION: Small focus of stress ischemia anterior wall at the septum. Large fixed defect along the entire inferior wall favored to be scarring over diaphragm attenuation a rtifact. Correlation can be made with EKG findings and history. Enlarged end-diastolic volume of 122 mL. Ejection fraction is normal at 57%.
[2021-08-07] MEDS ORDERED: LORazepam 2 MG/ML VIAL IV ONE (15:46)
--- NOTE | 2021-08-07 16:58 | EKG ---
Test Date: 2021-08-06 Test Time: 20:51:18 Steam Table Attendant: ARNIE MEASUREMENT RESULTS: Intervals: Rate: 64 WY: 176 QRSD: 102 QT: 384 QTc: 396 [place]: P: 74 WY: 176 QRS: 22 T: 60 INTERPRETIVE STATEMENTS: Normal sinus rhythm Incomplete right bundle branch block Borderline ECG Compared to ECG 07/31/2021 20:23:46 No significant changes Electronically Signed On 08-07-21 16:57:01 NON DESTRUCTIVE TESTING SPECIALIST by Ke Hernandez
--- NOTE | 2021-08-07 17:19 | P.PN ---
Subjective Date of Service: 08/07/21 Chief Complaint: chest pain Patient quite anxious. No chest pain today. Physical Examination - Vital Signs Temperature: 98.0 F Blood Pressure: 125/68 Pulse: 65 Respirations: 15 Pulse Ox (%): 98 - Physical Exam General: Alert, In no apparent distress, Oriented x3 HEENT: Mucous membr. moist/pink Neck: JVD not distended Respiratory: Clear to auscultation bilaterally, Normal air movement Cardiovascular: No edema, Regular rate/rhythm, Normal S1 S2 Capillary refill: <2 Seconds Gastrointestinal: Normal bowel sounds, Soft and benign, Non-distended, No tenderness Musculoskeletal: No swelling, No tenderness Integumentary: No rashes, No erythema, No cyanosis Neurological: Normal strength at 5/5 x4 extr - Studies Laboratory Data (last 24 hrs) 08/06/21 21:10: PT 14.5 H, INR 1.26 08/06/21 21:10: WBC 8.80 D, Hgb 14.4, Hct 42.1, Plt Count 236 08/06/21 21:10: Sodium 141, Potassium 4.1, BUN 14, Creatinine 1.23, Glucose 107 H, Magnesium 2.3, Total Bilirubin 0.4, AST 21, ALT 31, Alkaline Phosphatase 109, Lipase 258 Assessment And Plan - Current Problems (Diagnosis) (1) Chest pain Current Visit: No Status: Acute Qualifiers: (2) LV hypertrophy, hypertensive Current Visit: No Status: Acute (3) Essential hypertension Current Visit: No Status: Chronic (4) History of pulmonary embolism Current Visit: Yes Status: Acute (5) Abnormal stress test Current Visit: Yes Status: Acute - Plan Patient with abnormal stress test. Case discussed with cardiology. Dr. Hernandez is planning cardiac catheterization tomorrow. Continue aspirin. Patient is on Eliquis for pulmonary embolism. Ativan as needed for anxiety. Resume citalopram. Blood pressure readings are normal.
--- NOTE | 2021-08-08 06:48 | TREADPHA ---
DX: CHEST PAIN Date of Study: 08/07/2021 Ht: 6' 1 " Wt: 227 lb 6.4 oz Consulting Physician: ERNIE MEDICATIONS: ELIQUIS, AMLODIPINE, CITALOPRAM HISTORY: 50 YEAR OLD MALE, COMPLAINTS OF CHEST PAIN. HISTORY OF PERICARDIAL EFFUSION, HYPERTENSION, CHRONIC BACK PAIN, NO SMOKING, NO DRINKING. PHYSICIAL EXAMINATION: RESTING B.P.: 124/80 RESTING H.R.: 59 RESTING EKG: NORMAL PROTOCOL: PHARMACOLOGIC EXERCISE TIME: 3:30 B.P. AT PEAK STRESS: 125/68 IMPRESSION: LEXISCAN INJECTED, FOLLOWED BY CARDIOLITE PER PROTOCOL. SEE NUCLEAR MEDICINE REPORT. NO SUPRAVENTRICULAR TACHYCARDIA, VENTRICULAR TACHYCARDIA, PREMATURE ATRIAL COMPLEXES OR PREMATURE VENTRICULAR COMPLEXES. PATIENT REPORTS NO CHEST PAIN.
--- NOTE | 2021-08-08 06:52 | ECHO ---
HEIGHT: 6 ft 1 in WEIGHT: 227 lb 6.4 oz DATE OF STUDY: 08/07/[address]: Jose Luis Mays 2-DIMENSIONAL: YES M.MODE: YES DOPPLER: YES COLOR FLOW: YES TDS: PORTABLE: DEFINITY: BUBBLE STUDY: DIAGNOSIS: CHEST PAIN CARDIAC HISTORY: CATHERIZATION: NO SURGERY: NO PROSTHETIC VALVE: NO PACEMAKER: NO MEASUREMENTS (cm) DIASTOLIC (NORMALS) SYSTOLIC (NORMALS) IVSd 1.0 (0.6-1.2) LA Diam 3.0 (1.9-4.0) LVEF 60% LVIDd 5.0 (3.5-5.7) LVIDs 3.4 (2.0-3.5) %FS 32% LVPWd 1.1 (0.6-1.2) Ao Diam 2.8 (2.0-3.7) 2 DIMENSIONAL ASSESSMENT: RIGHT ATRIUM: LEFT ATRIUM: RIGHT VENTRICLE: LEFT VENTRICLE: TRICUSPID VALVE: MITRAL VALVE: PULMONIC VALVE: AORTIC VALVE: PERICARDIAL EFFUSION: AORTIC ROOT: LEFT VENTRICULAR WALL MOTION: DOPPLER/COLOR FLOW: COMMENTS: NORMAL 2-DIMENSIONAL ECHOCARDIOGRAM WITH DOPPLER. NO WALL MOTION ABNORMALITY. NO EFFUSION. TECHNOLOGIST: AARON SCHAEFER
[2021-08-08] MEDS: FOLIC ACID 1 MG TABLET PO SCH (08:39)
[2021-08-08] MEDS: AMLODIPINE 5 MG TAB PO SCH (08:39)
[2021-08-08] MEDS: ASPIRIN EC 81 MG TAB PO SCH (08:41)
[2021-08-08] MEDS ORDERED: CITALOPRAM 10 MG TABLET PO SCH (09:00)
[2021-08-08] MEDS ORDERED: FENTANYL CITR 100 MCG/2 ML ONE (10:41)
[2021-08-08] MEDS ORDERED: HEPA 1000U/500MLS 1,000 UNIT/500 ML BAG IV ONE (10:41)
[2021-08-08] MEDS ORDERED: MIDAZOLAM HCL 2 MG/2 ML INJ ONE ×3 (10:41→11:53)
[2021-08-08] MEDS ORDERED: LIDOCAINE 1% 20 ML MDV ONE (10:41)
[2021-08-08] MEDS ORDERED: NA CHLORIDE 0.9% 500 ML ONE ×2 (10:42→14:41)
[2021-08-08] MEDS ORDERED: ATROPINE SULF 1 MG/10 ML SYR IV ONE (10:42)
[2021-08-08] MEDS ORDERED: NA CHLORIDE 0.9% 0 ML ONE (10:42)
--- NOTE | 2021-08-08 13:02 | P.DS ---
Admission Date: 08/07/21 Discharge Date: 08/08/21 Disposition: ROUTINE DISCHARGE Discharge Condition: FAIR Reason for Admission: chest pain - Problems (1) Chest pain Current Visit: No Status: Acute Qualifiers: (2) LV hypertrophy, hypertensive Current Visit: No Status: Acute (3) Essential hypertension Current Visit: No Status: Chronic (4) History of pulmonary embolism Current Visit: Yes Status: Acute (5) Abnormal stress test Current Visit: Yes Status: Acute Brief History of Present Illness: Mr. Hightower is a 50 yo M with history of pulmonary embolism, HTN, depression, CURTIS who presented with a squeezing chest pain and SOB. He reported diaphoresis, denied nausea and vomiting. Has recently saw a program medical director and was scheduled to have an ECHO and stress test on 08/20. He recently had a PE and is on eliquis 5mg BID. Repeat CTPE with no evidence of pulmonary embolism. Patient admitted for further management. Hospital Course: Patient admitted to the medical floor. Troponin trended negative. Had a stress test which reported small reversible ischemia in the cardiac apex and large fixed defect versus diaphragm artifact. Cardiology consulted, patient underwent cardiac catheterization and noted to have clean coronary artery. No cardiac intervention. Patient stable after cardiac catheterization. He is stable for discharge. Patient may resume Eliquis tonight. Vital Signs/Physical Exam: Temp Pulse Resp BP Pulse Ox 98.3 F 66 12 113/70 97 08/08/21 08:00 08/08/21 08:00 08/08/21 08:00 08/08/21 08:00 08/08/21 08:00 General: Alert, In no apparent distress, Oriented x3 HEENT: Mucous membr. moist/pink Neck: JVD not distended Respiratory: Clear to auscultation bilaterally, Normal air movement Cardiovascular: No edema, Regular rate/rhythm, Normal S1 S2 Gastrointestinal: Soft and benign, Non-distended Musculoskeletal: No swelling Integumentary: No rashes, No cyanosis Neurological: Normal strength at 5/5 x4 extr Laboratory Data at Discharge: WBC 7.90 K/uL (4.3-10.9) 08/07/21 03:00 Hgb 13.5 g/dL (13.6-17.9) L 08/07/21 03:00 Hct 39.1 % (39.6-49.0) L 08/07/21 03:00 Plt Count 218 K/uL (152-406) 08/07/21 03:00 PT 14.5 SECONDS (9.5-12.5) H 08/06/21 21:10 INR 1.26 08/06/21 21:10 Sodium 142 mmol/L (136-145) 08/07/21 03:00 Potassium 4.2 mmol/L (3.5-5.1) 08/07/21 03:00 BUN 13 mg/dL (7-18) 08/07/21 03:00 Creatinine 1.03 mg/dL (0.55-1.3) 08/07/21 03:00 Glucose 102 mg/dL (74-106) 08/07/21 03:00 Phosphorus 2.6 mg/dL (2.5-4.9) 08/07/21 03:00 Magnesium 2.3 mg/dL (1.8-2.4) 08/07/21 03:00 Total Bilirubin 0.5 mg/dL (0.2-1.0) 08/07/21 03:00 AST 18 U/L (15-37) 08/07/21 03:00 ALT 26 U/L (12-78) 08/07/21 03:00 Alkaline Phosphatase 88 U/L (45-117) 08/07/21 03:00 Troponin I < 0.02 ng/mL (0.0-0.045) 08/08/21 03:16 Lipase 258 U/L (73-393) 08/06/21 21:10 Home Medications: Amlodipine [Norvasc*] 5 mg PO DAILY #30 tab 07/27/21 Aspirin [Aspirin EC] 81 mg PO DAILY #30 tablet. 07/27/21 Folic Acid 1 mg PO DAILY #30 tablet 07/27/21 Apixaban [Eliquis] 5 mg PO BID 08/06/21 Citalopram Hydrobromide [Celexa] 20 mg PO DAILY 08/06/21 Diet: AHA Activity: Ad cassy Followup: NONE,NONE [Primary Care Provider] - 1-2 Weeks Time spent managing pt's care (in minutes): 35
[2021-08-08] MEDS ORDERED: ACETAMINOPHEN 325 MG TABLET PO PRN (15:02)
[2021-08-08] MEDS ORDERED: NITROGLYCERIN 0.4 MG/TAB SL PRN (15:03)
[2021-08-08 15:25] VITALS: O2SAT 97
[2021-08-08] MEDS ORDERED: NA CHLORIDE 0.9% 1,000 ML IV SCH (16:00)
[2021-08-08 16:14] VITALS: BP 109/64; TEMP 98.1
--- NOTE | 2021-08-08 18:10 | OP ---
Date of Procedure: 08/08/2021 Surgeon: Ke Hernandez MD Rehabilitation Therapy Technician: Syed Spivey. Angio-Seal was used to close the case. The patient will be at bedrest for about 2 hours. He can go home after that and he will follow up with me and his primary care physician in the next 2 weeks. Ca se was discussed with the patient and the family. Admitted to Dr. Wall on 08/06/2021 for chest pain. He had abnormal stress test on 08/07/2021, brou ght to the medical lab assistant today on 08/08/2021, underwent a selective coronary arteriogram and left heart ca theterization. Procedure In Detail: The patient was prepped and draped in the routine sterile fashion. Given Verse d and fentanyl for sedation. A 6-Korean sheath introduced in the right common femoral artery success fully using the Seldinger technique and 10 cc of Xylocaine. Adrián catheter left and right were use d to do the diagnostic catheterization. He was found to have normal coronaries. A JR4 catheter acro ss the aortic valve and he was found to have no gradients. Coronaries were normal. He was right dom inant. There were no complications. Blood Loss: 5 mL. Postoperative Diagnoses: Positive stress test, atypical chest pain, normal coronaries. Plan: Plan is for medical therapy. He will restart his Eliquis tomorrow. MARIO/BETY Voice ID: [id number] Report ID: [id number]
== END 2021-08-08 16:35 | disposition home or self-care (01) | DRG 287 ==
LOC: ER 20:32 → ERHOLD 22:40 → 4TH 23:26 → OBSVTOIN 08-07 19:27
PROVIDERS: ADMIT Internal Medicine; ATTEND Internal Medicine
PROC: B201YZZ Plain Radiography of Multiple Coronary Arteries using Other Contrast (ICD-10-PCS; principal; 2021-08-08)
DX: R07.9 Chest pain, unspecified (principal); I11.9 Hypertensive heart disease without heart failure; R94.39 Abnormal result of other cardiovascular function study; F32.A Depression, unspecified; G47.33 Obstructive sleep apnea (adult) (pediatric); Z86.711 Personal history of pulmonary embolism; Z79.01 Long term (current) use of anticoagulants; Z20.822 Contact with and (suspected) exposure to COVID-19
CPT/HCPCS: 36415; 71045; 71275; 78452; 80048; 80053; 80076; 81003; 82565; 83690; 83735; 83880; 84100; 84484; 85025; 85610; 93005; 93017; 93306; 93458; 93970; 94760; 96360; 96361; 99285; A9500; C1760; C1893; G0378; J0583; J1644; J2250; J2785; J3010; J7030; J7040; Q9967; U0003

== ENCOUNTER 2021-08-09 21:25 | Emergency (ER) | payer OTHER ==
--- OUTSIDE RECORDS SUMMARY | 2021-08-09 21:30 | XMS REPORT | Continuity of Care Document ---
:1970 Author Organization [facility] t Address [address] [place] [address] Care Team Providers Name Role Phone Víctor CARTER Primary Care Physician Amelia MCKEON Attending Clinician Unavailable Amelia MCKOEN Attending Clinician Unavailable SHELTON OQUENDO Attending Clinician Unavailable Shelton Oquendo MD Attending [...] Type Policy Number Effective Date Expiration Date Louisa NAILS [id number] 2021 ADMINISTRATION 00:00:00 [facility] 9 [id number] 2018-01-192018 00:00:00 JAYRO TAN [id number] 2020 BROCK 00:00:00 Problems Condition Condition Condition Status Onset Resolution Last Treating Co mments Source Name Details Category Date Date Treatment Clinician Date Chest pain Chest pain Disease Active 2020-09 Brianda oro 09-23 ity of 00:00: [place] [address] Medical Branch Plantar Plantar Disease Active Thao fasciitis, fasciitis, 9-27 Se ybold bilateral bilateral 00:00: 00 No known No known Disease Unive rs active active ity of problems problems [facility] Low HDL Low HDL Disease Active Thao [...] Clinician Hydrocod Propensi Active Itching Hot/itchi Ke lsey one ty to 6-08 ng Seybold adverse 00:00: reaction 00 s NO KNOWN Drug Active Univers ALLERGIE Class ity of S [facility] Social History Social Habit Start Date Stop Date Quantity Comments Source History SDOH Thao Stringero ld Alcohol Frequency History SDOH Thao Petersen ld Alcohol Std Drinks History SDOH Thao Stringero sera Alcohol Binge Exposure to Not sure Thao Beaver d SARS-CoV-2 (event) Alcohol intake 2021-08-09 2021-08-09 0 /d Thao kayla bold 00:00:00 00:00:00 Cigarettes smoked 2017-06-22 2017-06-22 Thao Ann current (pack per 00:00:00 00:00:00 day) - Reported Cigarette 2017-06-22 2017-06-22 Thao Seelissa pack-years 00:00:00 00:00:00 Tobacco use and 2017-06-22 2017-06-22 Smokeless tobacco Paco mercado Seybold exposure 00:00:00 00:00:00 non-user History of tobacco 2016-05-22 Cigarette Smoker Thao Ann use 00:00:00 Alcohol Comment 2015-07-11 2015-07-11 rare Thao Hauser ybreynold 00:00:00 00:00:00 [birth year] Thao Huaser ybold 00:00:00 00:00:00 Smoking Status Start Date Stop Date Source Unknown if ever smoked Universit y [facility] Former smoker 2021-07-25 00:00:00 2021-07-25 00:00:00 [facility] Medications Ordered Filled Start Stop Current Ordering Indication Dosage Frequency Signature Comments Components Source Medication Medication Date Date Medication? Clinician (SIG) Name Name Citalopram 2020-09 Yes [id number] 20mg Take 1 K elsey Hydrobromid 1-16 tablet (20 Se ybold e 20 MG 00:00: mg total) oral Tablet 00 by mouth daily Apixaban 5 2020-09 Yes [id number] 5mg Take 1 K elsey MG oral 1-08 tablet (5 Seybold Tablet 00:00: mg total) 00 by mouth 2 times daily Apixaban 5 2020-09 Yes [id number] 5mg Take 1 K elsey MG oral 1-08 tablet (5 Seybold Tablet 00:00: mg total) 00 by mouth 2 times daily Amlodipine 2020-09 Yes Thao Besylate 5 1-06 Seybold MG oral 00:00: Tablet 00 Folic Acid 2020-09 Yes Thao 1 MG oral 1-06 Seybold tablet 00:00: 00 Amlodipine 2020-09 Yes Thao Besylate 5 1-06 Seybold MG oral 00:00: Tablet 00 Folic Acid 2020-09 Yes Thao 1 MG oral 1-06 Seybold tablet 00:00: 00 enoxaparin 2020-09 Yes 30mg 30 mg, Unive rs (LOVENOX) 04 Subcutaneo ity of injection 14:[place] 00 First dose Medical on [facility] 07/25/21 at 0900, Until Discontinu ed, Routine ondansetron 2020-09 Yes 4mg 4 mg, Slow Univers (ZOFRAN 1-04 IV Push, ity of (PF)) 07:15: Q6HPRN, [place] injection 4 46 Starting Medi lopez mg on [facility] 07/25/21 at 0215, Until Discontinu ed, Routine, Nausea and Vomiting (N/V) No known No Univers medications 05-22 ity of 14:56: [place] [address] [facility] Branch cyclobenzap Yes TAKE ONE Un trace rine 10 mg 6-28 TABLET BY ity of tablet 00:00: MOUTH AT [place] 00 BEDTIME Medical A MUSCLE Branch RELAXANT Methyl Yes APPLY Univers Salicylate- 6-28 SMALL ity of Menthol 00:00: AMOUNT TO [place] 15-10 % 00 THE SKIN Medical Crea EVERY 12 Branch HOURS FOR RELIEF OF MUSCLE PAIN cyclobenzap 2020-0 Yes TAKE ONE Un trace rine 10 mg 6-28 TABLET BY ity of tablet 00:00: MOUTH AT [place] 00 BEDTIME Medical A MUSCLE Branch RELAXANT Methyl 1-0 Yes APPLY Univers Salicylate- 6-28 SMALL ity of Menthol 00:00: AMOUNT TO [place] 15-10 % 00 THE SKIN Medical Crea EVERY 12 Branch HOURS FOR RELIEF OF MUSCLE PAIN cyclobenzap 2020-0 Yes TAKE ONE Un trace rine 10 mg 6-28 TABLET BY ity of tablet 00:00: MOUTH AT [place] 00 BEDTIME Medical A MUSCLE Branch RELAXANT Methyl 1-0 Yes APPLY Univers Salicylate- 6-28 SMALL ity of Menthol 00:00: AMOUNT TO [place] 15-10 % 00 THE SKIN Medical Crea EVERY 12 Branch HOURS FOR RELIEF OF MUSCLE PAIN cyclobenzap 2020-0 Yes TAKE ONE Un trace rine 10 mg 6-28 TABLET BY ity of tablet 00:00: MOUTH AT [place] 00 BEDTIME Medical A MUSCLE Branch RELAXANT Methyl 1-0 Yes APPLY Univers Salicylate- 6-28 SMALL ity of Menthol 00:00: AMOUNT TO [place] 15-10 % 00 THE SKIN Medical Crea EVERY 12 Branch HOURS FOR RELIEF OF MUSCLE PAIN cyclobenzap 2020-0 Yes TAKE ONE Un trace rine 10 mg 6-28 TABLET BY ity of tablet 00:00: MOUTH AT [place] 00 BEDTIME Medical A MUSCLE Branch RELAXANT Methyl 2021-0 Yes APPLY Univers Salicylate- 6-28 SMALL ity of Menthol 00:00: AMOUNT TO [place] 15-10 % 00 THE SKIN Medical Crea EVERY 12 Branch HOURS FOR RELIEF OF MUSCLE PAIN cyclobenzap 1-0 Yes TAKE ONE Un trace rine 10 mg 6-28 TABLET BY ity of tablet 00:00: MOUTH AT [place] [address] BEDTIME Medical A MUSCLE Branch RELAXANT Methyl 2021-0 Yes APPLY Univers Salicylate- 6-28 SMALL ity of Menthol 00:00: AMOUNT TO [place] 15-10 % 00 THE SKIN Medical Crea EVERY 12 Branch HOURS FOR RELIEF OF MUSCLE PAIN meloxicam 1-0 Yes 15mg Take 15 mg Un trace 15 mg 6-08 by mouth. ity of tablet 00:00: [facility] meloxicam 2020-0 Yes 15mg Take 15 mg Un trace 15 mg 6-08 by mouth. ity of tablet 00:00: [facility] meloxicam 2020-0 Yes 15mg Take 15 mg Un trace 15 mg 6-08 by mouth. ity of tablet 00:00: [facility] meloxicam 2020-0 Yes 15mg Take 15 mg Un trace 15 mg 6-08 by mouth. ity of tablet 00:00: [facility] meloxicam 2020-0 Yes 15mg Take 15 mg Un trace 15 mg 6-08 by mouth. ity of tablet 00:00: [facility] meloxicam 2020-0 Yes 15mg Take 15 mg Un trace 15 mg 6-08 by mouth. ity of tablet 00:00: [place] [facility] Cyclobenzap 2020-0 Yes [id number] 5mg [id number] Take 1 Thao rine HCl 5 6-08 [id number] tablet (5 Seybold MG oral 00:00: 3D mg total) Tablet 00 by mouth 3 times daily as needed for muscle spasms Meloxicam 2020-0 Yes [id number] 15mg Take 1 K elsey 15 MG oral 6-08 tablet (15 Sey bold Tablet 00:00: mg total) 00 by mouth daily Cyclobenzap 2020-0 Yes [id number] 5mg Q.[id number] Take 1 Thao rine HCl 5 6-08 [id number] tablet (5 Seybold MG oral 00:00: 3D mg total) Tablet 00 by mouth 3 times daily as needed for muscle spasms Cyclobenzap 2020-0 Yes [id number] 5mg Q.[id number] Take 1 Thao rine HCl 5 6-08 [id number] tablet (5 Seybold MG oral 00:00: 3D mg total) Tablet 00 by mouth 3 times daily as needed for muscle spasms Meloxicam 2020-0 2020- No [id number] 15mg Take 1 Thao 15 MG oral 6-08 11-08 tablet (15 Se ybold Tablet 00:00: 00:00 mg total) 00 :00 by mouth daily Immunizations Ordered Immunization Filled Immunization Date Status Commen ts Source Name Name Influenza Virus 2021-07-02 Completed Thao mcphersonreynold Vaccine, Intradermal, 00:00:00 18-64 Yrs Influenza Virus 2021-07-02 Completed Thao Hauser ybold Vaccine, Intradermal, 00:00:00 18-64 Yrs Influenza Virus 2021-07-02 Completed Thao ybold Vaccine, Intradermal, 00:00:00 18-64 Yrs SARS-COV-2 COVID-19 2020-11-25 Completed Unive rsity of MODERNA VACCINE 00:00:00 [facility] ical Branch SARS-COV-2 COVID-19 2020-11-25 Completed Unive rsity of MODERNA VACCINE 00:00:00 [facility] ical Branch SARS-COV-2 COVID-19 2020-11-25 Completed Unive rsity of MODERNA VACCINE 00:00:00 [facility] SARS-COV-2 COVID-19 2020-11-25 Completed Unive rsity of MODERNA VACCINE 00:00:00 [facility] SARS-COV-2 COVID-19 2020-11-25 Completed Unive rsity of MODERNA VACCINE 00:00:00 [facility] SARS-COV-2 COVID-19 2020-11-25 Completed Unive rsity of MODERNA VACCINE 00:00:00 [facility] SARS-COV-2 COVID-19 2020-11-25 Completed Unive rsity of MODERNA VACCINE 00:00:00 [facility] SARS-COV-2 COVID-19 2020-11-25 Completed Unive rsity of MODERNA VACCINE 00:00:00 [facility] Covid-19 Vaccine 2020-11-25 Completed Thao hawkins (Moderna), [...] Completed Unive rsity of MODERNA VACCINE 00:00:00 [place] [facility] ical Branch SARS-COV-2 COVID-19 2020-10-28 Completed Unive rsity of MODERNA VACCINE 00:00:00 [facility] ical Branch SARS-COV-2 COVID-19 2020-10-28 Completed Unive rsity of MODERNA VACCINE 00:00:00 [facility] ical Branch SARS-COV-2 COVID-19 2020-10-28 Completed Unive rsity of MODERNA VACCINE 00:00:00 [place] Med ical Branch SARS-COV-2 COVID-19 2020-10-28 Completed Unive rsity of MODERNA VACCINE 00:00:00 [facility] ical Branch SARS-COV-2 COVID-19 2020-10-28 Completed Unive rsity of MODERNA VACCINE 00:00:00 [facility] ical Branch SARS-COV-2 COVID-19 2020-10-28 Completed Unive rsity of MODERNA VACCINE 00:00:00 [facility] ical Branch SARS-COV-2 COVID-19 2020-10-28 Completed Unive rsity of MODERNA VACCINE 00:00:00 [facility] ical Branch Covid-19 Vaccine 2020-10-28 Completed Thao huffbold [...] and up Tdap- (Boostrix, 2017-06-22 Completed Thao Louisa eybold Adacel) 00:00:00 Influenza Virus 2017-06-22 Completed Thao Se ybold Vaccine, age 6 months 00:00:00 and up Pneumococcal Vaccine, 2015-07-11 Completed Maurice sey Seybold Polysaccharide 00:00:00 Pneumococcal Vaccine, 2015-07-11 Completed Maurice sey Seybold Polysaccharide 00:00:00 Pneumococcal Vaccine, 2015-07-11 Completed Maurice sey Seybold Polysaccharide 00:00:00 Influenza Virus 2015-06-29 Completed Thao Hauser ybold Vaccine, age 6 months 00:00:00 and up Influenza Virus 2015-06-29 Completed Thao Se ybold Vaccine, age 6 months 00:00:00 and up Influenza Virus 2015-06-29 Completed Thao Hauser ybold Vaccine, age 6 months 00:00:00 and up Tdap- (Boostrix, 2006-09-21 Completed Thao Nolan dariabold Adacel) 00:00:00 Tdap- (Boostrix, 2006-09-21 Completed Thao Louisa eybold Adacel) 00:00:00 Tdap- (Boostrix, 2006-09-21 Completed Thao S eybold Adacel) 00:00:00 Vital Signs Vital Name Observation Time Observation Value Comments Source Systolic blood 2021-08-09 16:15:00 116 mm[Hg] Thao vidareynold pressure Diastolic blood 2021-08-09 16:15:00 78 mm[Hg] Calvin garza Seybold pressure Heart rate 2021-08-09 16:15:00 95 /min Thao Louisa shruthi Body temperature 2021-08-09 16:15:00 36.56 Moriah Lluvia Ann Respiratory rate 2021-08-09 16:15:00 20 /min Lluvialouisa Ann Body weight 2021-08-09 16:15:00 102.967 kg Thao Louisa shruthi BMI 2021-08-09 16:15:00 29.95 kg/m2 Thao Louisa shruthi Oxygen saturation in 2021-08-09 16:15:00 95 /min Thao Ann Arterial blood by Pulse oximetry Systolic blood 2021-08-09 16:15:00 116 mm[Hg] Thao Seybold pressure Diastolic blood 2021-08-09 16:15:00 78 mm[Hg] Kelse y Seybold pressure Heart rate 2021-08-09 16:15:00 95 /min Thao S eybold Body temperature 2021-08-09 16:15:00 36.56 Moriah Lluvia ey Seybold Respiratory rate 2021-08-09 16:15:00 20 /min Lluvia ey Seybold Body weight 2021-08-09 16:15:00 102.967 kg Thao S eybold BMI 2021-08-09 16:15:00 29.95 kg/m2 Thao S eybold Oxygen saturation in 2021-08-09 16:15:00 95 /min Thao Seybold Arterial blood by Pulse oximetry Systolic blood 2021-07-29 16:14:00 124 mm[Hg] Thao [...] 2021-07-25 17:34:00 110 mm[Hg] Univer sity of pressure [facility] Diastolic blood 2021-07-25 17:34:00 76 mm[Hg] Unive rsity of pressure [facility] Heart rate 2021-07-25 17:34:00 69 /min [facility] Body temperature 2021-07-25 17:34:00 36.67 [facility]iah [facility] Res[facility] 2021-07-25 17:34:00 16 /min [facility] Oxygen saturation in 2021-07-25 17:34:00 95 /min [facility] Arterial blood by [facility] Pulse oximetry Branch Body weight 2021-07-25 08:16:00 102.967 kg [facility] BMI 2021-07-25 08:16:00 29.95 kg/m2 [facility] Systolic blood 2021-07-19 18:19:00 124 [...] 2021-05-22 19:56:00 137 mm[Hg] Univer sity of [facility] Diastolic blood 2021-05-22 19:56:00 80 mm[Hg] Unive [facility] [place] Heart rate 2021-05-22 19:56:00 64 /min [facility] Body temperature 2021-05-22 19:56:00 36.72 Moriah [facility] Respiratory rate 2021-05-22 19:56:00 18 /min [facility] Body height 2021-05-22 19:56:00 185.4 cm [facility] Body weight 2021-05-22 19:56:00 103.239 kg [facility] BMI 2021-05-22 19:56:00 30.03 kg/m2 [facility] Oxygen saturation in 2021-05-22 19:56:00 96 /min [facility] Arterial blood by [facility] Pulse oximetry Branch Procedures Procedure Date / Time Performing Clinician Source Performed TROPONIN I 2021-07-25 15:22:00 Jorge Deleon [facility] TRANSTHORACIC ECHO (TTE) 2021-07-25 14:51:00 Joseph Maria [facility] TROPONIN I 2021-07-25 07:24:00 Joseph Maria [facility] THYROID STIMULATING 2021-07-25 07:24:00 Joseph Maria [facility] HORMONE [facility] LIPID PANEL ([id number])(TOTAL 2021-07-25 07:24:00 Joseph Maria [facility] CHOLESTEROL, Medical Branch TRIGLYCERIDES, HDL) COVID-19 (ID NOW RAPID 2021-07-25 00:59:00 Bonnie Moore [facility] TESTING) Medical Branch LAB ONLY COVID 2021-07-25 00:59:00 Bonnie Moore [facility] INTERPRETATION [facility] XR CHEST 1 VW 2021-07-24 23:15:47 Bonnie Moore [facility] TROPONIN I 2021-07-24 23:02:00 Bonnie Moore [facility] COMP. METABOLIC PANEL 2021-07-24 23:02:00 Bonnie Moore [facility] ([id number]) Medical [place] CBC WITH DIFF 2021-07-24 23:02:00 Bonnie Moore [facility] GLYCOSYLATED HEMOGLOBIN 2021-07-24 23:02:00 Joseph Maria [facility] (A1C) Medical [place] N-TERMINAL PRO-BNP 2021-07-24 23:02:00 Bonnie Moore [facility] SLEEP STUDY DATA REPORT 2021-07-10 05:01:00 Doctor Unassigned, [facility] Name Medical Branch DME/SUPPLY JUSTIFICATION 2021-07-03 05:01:00 Doctor Vijay [facility] ASSIGNMENT OF BENEFITS 2021-05-22 19:45:33 Doctor Vijay, [facility] DME/SUPPLY JUSTIFICATION 2021-05-15 05:01:00 Doctor Viajy, [facility] Medical [place] Encounters Start End Encounter Admission Attending Care Care Encounter Source Date/Time Date/Time Type Type Clinicians Facility Department ID 2021-08-28 2021-08-28 Outpatient R JENNIFER MCKEON [facility] [id number] Univers 16:20:00 16:20:00 JENNIFER MCKEON 2112 [id number] [facility] 2021-08-28 2021-08-28 Outpatient R JENNIFER MCKEON [facility] [id number] Univers 16:20:00 16:20:00 JENNIFER MCKEON [facility] 2021-08-26 2021-08-26 Outpatient THAO OQUENDO [id number] Thao 08:00:00 08:00:00 APRIL Seybol d 2021-08-09 2021-08-09 Office Yakov Oquendo [id number] 10:30:00 11:00:00 Visit April Nguyen 350.1.13.13 Somogyi 1.2.7.2.686 [id number] 2021-08-09 2021-08-09 Office Yakov Oquendo [id number] Thao 10:30:00 11:00:00 Visit April Nguyen 350.1.13.13 Se ybold Somogyi 1.2.7.2.686 [id number] 2021-08-08 2021-08-08 Outpatient THAO OQUENDO [id number] Thao 00:00:00 00:00:00 APRIL Hauserybol d 2021-08-07 2021-08-07 Outpatient R JEANNIEEMA SURYIMMANUEL [facility] [id number] Univers 15:40:00 15:40:00 JENNIFER MCKEON 2111 17 [facility] 2021-08-07 2021-08-07 Outpatient R JEANNIEJOSECONNIECLAYJoão [facility] [id number] Univers 15:40:00 15:40:00 JENNIFER MCKEON [facility] 2021-08-06 2021-08-06 Outpatient THAO OQUENDO [id number] Thao 00:00:00 00:00:00 APRIL Seybol d 2021-08-01 2021-08-01 Outpatient THAO OQUENDO [id number] Thao 00:00:00 00:00:00 APRIL Seybol d 2021-07-29 2021-07-29 Office Harrison Nagy [id number] 10:12:53 10:42:53 Visit April Nguyen 350.1.13.13 Somogyi 1.2.7.2.686 [id number] 2021-07-29 2021-07-29 Office Yakov Oquendo 1.2.840.114 [id number] Thao 10:12:53 10:42:53 Visit April Nguyen 350.1.13.13 Se vidareynold Somogyi 1.2.7.2.686 [id number] 2021-07-26 2021-07-26 Outpatient THAO OQUENDO [id number] Thao 09:00:00 09:00:00 APRIL Stringerol d 2021-07-26 2021-07-26 Outpatient THAO OQUENDO [id number] Thao 00:00:00 00:00:00 APRIL Stringerol d 2021-07-24 2021-07-25 Outpatient X [place]OW [place] [facility] [id number] Univers 16:44:00 14:11:00 JOSEPH [facility] 2021-07-24 2021-07-25 Emergency Jean Claude Mooreya [place] [facility] 1.2.840.1 [id number] Univers 16:44:00 14:11:00 Joseph [facility] 350.1.13.10 [facility] 4.2.7.2.686 [facility] [id number] [address] 2021-07-25 2021-07-25 Outpatient THAO OQUENDO [id number] Thao 00:00:00 00:00:00 APRIL Stringerol d 2021-07-19 2021-07-19 Outpatient LAB90 THAO TAN [id number] Thao 14:15:00 14:15:00 Seybol d 2021-07-19 2021-07-19 Office Yakov Oquendo 1.2.840.114 [id number] Thao 13:16:34 13:46:34 Visit April Nguyen 350.1.13.13 Se ybold Somogyi 1.2.7.2.686 [id number] 2021-07-19 2021-07-19 Office Yakov Oquendo 1.2.840.114 [id number] 13:16:34 13:46:34 Visit April Nguyen 350.1.13.13 Somogyi 1.2.7.2.686 [id number] 2021-07-10 2021-07-10 Outpatient R [facility] [id number] Univers 19:30:00 19:30:00 [id number] ity of [facility] 2021-07-10 2021-07-10 Outpatient R MIKE CLAYL [facility] [id number] Univers 19:30:00 19:30:00 ATANASCLAY ROSALESL ity [facility] 2021-07-10 2021-07-10 Rover Tender 1, [facility] Sleep Lab Bed [facility] 1. 2.840.114 [id number] Univers 15:33:52 18:03:52 Visit Jennifer Mckeon 350.1.13. 10 ity of [place] 4.2.7.2.686 [facility] [id number] [facility] 193 Branch 2021-07-10 2021-07-10 Orders Doctor GRANT 1.2.840.114 [id number] Univers 00:00:00 00:00:00 Only Unassigned, LEYLA 350.1.13.10 ity of [facility] 4.2.7.2.686 Tristan as [id number] [facility] 009 Branch 2021-07-08 2021-07-08 Outpatient R [facility] [id number] Univers 16:45:00 16:45:00 [id number] ity [facility] 2021-07-08 2021-07-08 Laboratory Only, [facility] Test [facility] 1.2.840. 114 [id number] Univers 16:17:16 16:32:16 Only Jennifer Mckeon 350.1.13. 10 ity of [place] 4.2.7.2.686 [facility] [id number] [facility] 353 Branch 2021-07-08 2021-07-08 Outpatient R JENNIFER MCKEON [facility] [id number] Univers 16:15:00 16:15:00 ATACLAY BOOL ity [facility] 2021-07-03 2021-07-03 Orders Doctor GRANT 1.2.840.114 [id number] Univers 00:00:00 00:00:00 Only Unassigned, LEYLA 350.1.13.10 [facility]y of [facility] 4.2.7.2.686 Tristan as [id number] [address] 2021-06-11 2021-06-11 Outpatient R [facility] [id number] Univers 19:30:00 19:30:00 [id number] ity [facility] 2021-06-11 2021-06-11 Outpatient R JENNIFER MCKEON [facility] [id number] Univers 19:30:00 19:30:00 JENNIFER MCKEON ity [facility] 2021-06-07 2021-06-07 Outpatient R [facility] [id number] Univers 15:15:00 15:15:00 [id number] ity [facility] 2021-06-07 2021-06-07 Outpatient R [facility] [id number] Univers 15:15:00 15:15:00 ity [facility] 2021-05-22 2021-05-22 Office Mike [facility] [id number] Univers 14:47:09 15:07:09 Visit Jennifer Reynoso 350.1.13.10 ity [place] 4[place].7.2.[id number] [address] 2021-05-22 2021-05-22 Outpatient R JENNIFER MCKEON [facility] [id number] Univers 15:00:00 15:00:00 JENNIFER MCKEON ity [facility] 2021-05-22 2021-05-22 Orders Doctor GRANT 1.2.840.114 [id number] Univers 00:00:00 00:00:00 Only Unassigned, LEYLA 350.1.13.10 ity of [facility] 4.2.7.2.686 Tristan as [id number] [address] 2021-05-15 2021-05-15 Orders Doctor GRANT 1.2.840.114 [id number] Univers 00:00:00 00:00:00 Only Unassigned, LEYLA 350.1.13.10 [facility]y of [facility] 4.2.7.2.686 Tristan as [id number] [place] [address] Branch 2021-04-30 2021-04-30 Outpatient THAO LUI [id number] Thao 00:00:00 00:00:00 ROSALIO Hauserybol d 2021-04-12 2021-04-12 Outpatient THAO LUI [id number] Thao 00:00:00 00:00:00 ROSALIO Stringerol jonn Results Test Description Test Time Test Comments Results Result Comments Source TROPONIN I 2021-07-25 17:58:33 Test Item Value Reference Range Interpretation Comme nts TROPONIN I (test code = 0.002 ng/mL See_Comment [Au tomated message] The [id number]) system which ge nerated this result tra [...] biotin. Lab Interpretation Normal (test code = 39717-4) [facility]38700[facility]TOTAL CHOLESTEROL, TRIGLYCERIDES, HDL)2021-07-25 09:12:49 Test Item Value Reference Range Interpretation Comments CHOL (test code = 148 mg/dL 120-200 [id number]) HDL (test code = 43 mg/dL >40 [id number]) HDLC RATIO (test code = See_Comment [Au tomated message] [id number]) The system [employer] generated this result transmit noe reference range : <=5.0. The refe rence range was not u sed to interpret th is result as normal/abnormal . TRIG (test code = 56 mg/dL 30-170 [id number]) LDL CHOL (test code = 94 mg/dL See_Comment [Auto mated message] 42332-6) The system [employer] generated this result transmit noe reference range : <=160. The refe rence range was not u sed to interpret th is result as normal/abnormal . VLDL (test code = 11 mg/dL 5-60 [id number]) Lab Interpretation (test Normal code = 88253-9) [facility] [id number] 08:27:46 Test Item Value Reference Range Interpretation Comments TSH (test code = See_Comment [Automated message] [id number]) The system [employer] generated this result transmitted ref erence range: 0.45 - 4 .70 mIU/L. The refe rence range was not u sed to interpret this result as normal/abnor mal. Lab Interpretation (test Normal code = 55748-5) [facility] [id number] 08:09:02 Test Item Value Reference Interpretation Comments Range TROPONIN I (test 0.003 ng/mL See_Comment [Automated code = 4913912569) message] The system which generated this result [...] biotin. Lab Interpretation Normal (test code = 40280-5) [facility] (A1C)2021-07-25 07:44:12 Test Item Value Reference Range Interpretation Comments HGB A1C (test code = 5.5 % 4.0-5.7 4548-4) LORI (test code = LORI) Reference RangesNormal: <5.7%Prediabetes: 5.7 - 6.4%Diabetes: > 6.5% Lab Interpretation (test Normal code = 57475-1) [facility] [id number] 23:43:41 Test Item Value Reference Interpretation Comments Range TROPONIN I (test 0.002 ng/mL See_Comment [Automated code = 2477323879) message] The system which generated this result [...] biotin. Lab Interpretation Normal (test code = 44079-7) [facility] [id number] 23:40:42 Test Item Value Reference Range Interpretation Comments NT-proBNP (test code 45 pg/mL See_Comment [Autom ated = [id number]) message] The system which generated this result transmitted reference range : <=125. The reference range was not used to interpret this result as normal/abnormal . LORI (test code = LORI) Biotin has been reported to cause a negative bias, interpret results relative to patient's use of biotin. Lab Interpretation Normal (test code = 00752-3) [facility] (11643)2021-07-24 23:32:02 Test Item Value Reference Range Interpretation Comments NA (test code = 137 mmol/L 135-145 3386701216) K (test code = 3.9 mmol/L 3.5-5.0 1634037818) CL (test code = 106 mmol/L 98-108 9975705295) CO2 TOTAL (test code = 21 mmol/L 23-31 L 4760717364) AGAP (test code = 2-16 8617381295) BUN (test code = 20 mg/dL 7-23 9579876454) GLUCOSE (test code = 104 mg/dL 70-110 4503050059) CREATININE (test code = 1.08 mg/dL 0.60-1.25 3319510141) TOTAL BILI (test code = 0.4 mg/dL 0.1-1.8 2979899930) CALCIUM (test code = 9.3 mg/dL 8.6-10.6 5262892148) T PROTEIN (test code = 7.3 g/dL 6.3-8.2 3833849914) ALBUMIN (test code = 4.5 g/dL 3.5-5.0 7624533504) ALK PHOS (test code = 105 U/L 34-122 9282273459) ALTv (test code = 16 U/L 5-50 1742-6) AST(SGOT) (test code = 24 U/L 13-40 9758471215) eGFR (test code = mL/min/1.73m2 5624250991) LORI (test code = LORI) Association of [...] tests). Lab Interpretation Abnormal (test code = 13341-8) [facility] WITH [id number] 23:14:54 Test Item Value Reference Range Interpretation Comments WBC (test code = See_Comment [Automated message] 6690-2) The system [employer] generated this result transmitted ref erence range: 4.20 - 1 0.70 10*3/?L. The re ference range was not u sed to interpret this result as normal/abnor mal. RBC (test code = See_Comment [Automated message] 619-8) The system [employer] generated this result transmitted ref erence range: [...] RDW-SD (test code 41.8 fL 38.5-51.6 = 17522-0) RDW-CV (test code 12.7 % 12.1-15.4 = 788-0) PLT (test code = See_Comment [Automated message] 197-3) The system [employer] generated this result transmitted ref erence range: 150 - 32 8 10*3/?L. The re ference range was not u sed to interpret this result as normal/abnor mal. MPV (test code = 10.8 fL 9.8-13.0 46323-0) NRBC/100 WBC (test See_Comment [Automat ed message] code = 7144500235) The [employer] which generated this result transmitted ref erence range: 0.0 - 10 .0 /100 WBCs. The refer ence range was not u sed to interpret this result as normal/abnor mal. NRBC x10^3 (test <0.01 See_Comment [Automated message] code = 3144075522) The syste m which generated this result transmitted ref erence range: 10*3/?L. The reference range was not used to interpr et this result as normal/abnormal . GRAN MAT (NEUT) % 67.7 % (test code = 770-8) IMM GRAN % (test 0.40 % code = 0632284902) LYMPH % (test code 22.4 % = 736-9) MONO % (test code 7.7 % = 5905-5) EOS % (test code = 1.4 % 713-8) BASO % (test code 0.4 % = 706-2) GRAN MAT 5.35 10*3/uL 1.99-6.95 x10^3(ANC) (test code = 8640028495) IMM GRAN x10^3 0.03 10*3/uL 0.00-0.06 (test code = 5163227570) LYMPH x10^3 (test 1.77 10*3/uL 1.09-3.23 code = 731-0) MONO x10^3 (test 0.61 10*3/uL 0.36-1.02 code = 742-7) EOS x10^3 (test 0.11 10*3/uL 0.06-0.53 code = 711-2) BASO x10^3 (test 0.03 10*3/uL 0.01-0.09 code = 704-7) [facility]"
[2021-08-09 22:22] LABS: Absolute Lymphocytes (CBC) 1.5 K/uL (0.7-4.9); Basophils % 0.4 % (0-1.3); Hematocrit 42.4 % (39.6-49.0); MPV 8.9 fL (7.6-11.3); Protime INR 1.3; RBC Red Blood Cell Count 4.69 M/uL (4.33-5.43)
[2021-08-09] MEDS ORDERED: ASPIRIN 81 MG CHEWABLE TABLET ONE (22:28)
[2021-08-09 22:42] LABS: ALT/SGPT 25 U/L (12-78); AST/SGOT 15 U/L (15-37); Albumin 4.2 g/dL (3.4-5.0); Alkaline Phosphatase 99 U/L (45-117); BUN Blood Urea Nitrogen 20 mg/dL (7-18); Bicarbonate 24 mmol/L (21-32); Bilirubin Direct 0.1 mg/dL (0-0.2); Bilirubin Total 0.5 mg/dL (0.2-1.0); Glucose Level 98 mg/dL (74-106); Magnesium 2.4 mg/dL (1.8-2.4); NT PRO-BNP 18 pg/mL (<125); Potassium 3.9 mmol/L (3.5-5.1); Protein, Total 7.8 g/dL (6.4-8.2); Sodium Level 142 mmol/L (136-145); Troponin (Emerg Dept Use Only) < 0.02 ng/mL (0.0-0.045)
--- NOTE | 2021-08-10 02:24 | EDPHYS ---
Physician Documentation [facility] Name: Isiah Hightower Age: 50 yrs Sex: Male : 1970 Arrival Date: 08/09/2021 Time: : Bed 20 Private MD: ED Physician Estuardo Quinones HPI: 08/09 22:05 This 50 yrs old Male presents to ER via Wheelchair with complaints of Chest Tightness, mh7 Chest Pressure, Chest Pain. 22:05 The patient or guardian reports chest pain that is located primarily in the anterior mh7 chest wall, left. Onset: today, at 19:30. The pain does not radiate. Associated signs and symptoms: Pertinent negatives: abdominal pain, cough, diaphoresis, dizziness, headache, lower extremity pain, lower extremity swelling, lightheadedness, nausea, near syncope, palpitations, recent travel, shortness of breath, syncope, vomiting. The chest pain is described as a pressure, tightness. Duration: The patient or guardian reports a single episode, that is now resolved. Modifying factors: The symptoms are alleviated by nothing. the symptoms are aggravated by nothing. Severity of pain: At its worst the pain was mild today, in the emergency department the pain has resolved and did so while in waiting room. The patient has experienced similar episodes in the past, multiple times. The patient has been recently been admitted at [facility], was discharged earlier this week. Historical: - Allergies: 21:34 Hydrocodone-Acetaminophen; ld1 - Home Meds: 21:34 citalopram 20 mg tab 1 tab once daily [Active]; amlodipine 5 mg tab 1 tab once daily ld1 [Active]; Eliquis 5 mg Oral tab 1 tab 2 times per day [Active]; - PMHx: 21:34 chronic back pain; Hypertensive disorder; PE; ld1 - PSHx: 21:34 None; ld1 - Immunization history:: Adult Immunizations up to date, Client reports receiving the 2nd dose of the Covid vaccine. - Social history:: Smoking status: Patient denies any tobacco usage or history of. Patient/guardian denies using alcohol, street drugs. ROS: 22:05 Constitutional: Negative for fever, chills, and weight loss, Eyes: Negative for injury, mh7 pain, redness, and discharge, ENT: Negative for injury, pain, and discharge, Neck: Negative for injury, pain, and swelling, Respiratory: Negative for shortness of breath, cough, wheezing, and pleuritic chest pain, Abdomen/GI: Negative for abdominal pain, nausea, vomiting, diarrhea, and constipation, Back: Negative for injury and pain, : Negative for injury, bleeding, discharge, and swelling, MS/Extremity: Negative for injury and deformity, Skin: Negative for injury, rash, and discoloration, Neuro: Negative for headache, weakness, numbness, tingling, and seizure, Psych: Negative for depression, anxiety, suicide ideation, homicidal ideation, and hallucinations, Allergy/Immunology: Negative for hives, rash, and allergies, Endocrine: Negative for neck swelling, polydipsia, polyuria, polyphagia, and marked weight changes, Hematologic/Lymphatic: Negative for swollen nodes, abnormal bleeding, and unusual bruising. Exam: 22:05 Constitutional: This is a well developed, well nourished patient who is awake, alert, mh7 and in no acute distress. Head/Face: Normocephalic, atraumatic. Eyes: Pupils equal round and reactive to light, extra-ocular motions intact. Lids and lashes normal. Conjunctiva and sclera are non-icteric and not injected. Cornea within normal limits. Periorbital areas with no swelling, redness, or edema. Neck: Trachea midline, no thyromegaly or masses palpated, and no cervical lymphadenopathy. Supple, full range of motion without nuchal rigidity, or vertebral point tenderness. No Meningismus. Chest/axilla: Normal chest wall appearance and motion. Nontender with no deformity. No lesions are appreciated. Cardiovascular: Regular rate and rhythm with a normal S1 and S2. No gallops, murmurs, or rubs. Normal PMI, no JVD. No pulse deficits. Respiratory: Lungs have equal breath sounds bilaterally, clear to auscultation and percussion. No rales, rhonchi or wheezes noted. No increased work of breathing, no retractions or nasal flaring. Abdomen/GI: Soft, non-tender, with normal bowel sounds. No distension or tympany. No guarding or rebound. No evidence of tenderness throughout. Back: No spinal tenderness. No costovertebral tenderness. Full range of motion. Skin: Warm, dry with normal turgor. Normal color with no rashes, no lesions, and no evidence of cellulitis. MS/ Extremity: Pulses equal, no cyanosis. Neurovascular intact. Full, normal range of motion. Neuro: Awake and alert, GCS 15, oriented to person, place, time, and situation. Cranial nerves II-XII grossly intact. Motor strength 5/5 in all extremities. Sensory grossly intact. Cerebellar exam normal. Normal gait. Psych: Awake, alert, with orientation to person, place and time. Behavior, mood, and affect are within normal limits. Vital Signs: 21:33 BP 127 / 97; Pulse 63; Resp 18; Temp 98.1(O); Pulse Ox 99% on R/A; Weight 102.97 kg; ld1 Height 6 ft. 1 in. (185.42 cm); Pain 4/10; 23:02 BP 115 / 79; Pulse 60; Resp 20 S; Pulse Ox 96% on R/A; cc4 08/10 02:33 BP 126 / 74; Pulse 66; Resp 17; Pulse Ox 98% on R/A; cc4 08/09 21:33 Body Mass Index 29.95 (102.97 kg, 185.42 cm) ld1 MDM: 02:17 Differential diagnosis: acute myocardial infarction, acute pericarditis, anxiety, mh7 coronary artery disease chest wall pain, congestive heart failure costochondritis, gastroesophageal reflux disease (GERD), pleurisy, pneumonia, pneumothorax, pulmonary embolus, stable angina. HEART Score: History: Slightly Suspicious (0), ECG: Normal (0), Age: < or = 45 years (0), Risk Factors: 1 or 2 risk factors (1), [Hypertension] Troponin: < or = 1 x Normal Limit (0), Total Score = 1. Data reviewed: vital signs, nurses notes, lab test result(s), cardiac enzymes, CBC, electrolytes, EKG, radiologic studies, plain films. Data interpreted: Pulse oximetry: on room air is 98 %. Interpretation: normal. Counseling: I had a detailed discussion with the patient and/or guardian regarding: the historical points, exam findings, and any diagnostic results supporting the discharge/admit diagnosis, lab results, radiology results, the need for outpatient follow up, to return to the emergency department if symptoms worsen or persist or if there are any questions or concerns that arise at home. ED course: Well appearing, no acute distress, vital signs stable, no focal neurological deficits. No chest pain, shortness of breath, nausea, vomiting, or other complaints. Patient reports having normal cardiac catheterization 2 days ago as well as other cardiac studies. Patient states that he is ready for discharge. Discussed need to follow-up with his doctors.. 02:23 Patient medically screened. [facility] 08/09 22:04 Order name: Basic Metabolic Panel; Complete Time: 23:07 [facility] 08/09 22:04 Order name: CBC with Diff; Complete Time: 23:07 [facility] 08/09 22:04 Order name: LFT's; Complete Time: 23:07 [facility] 08/09 22:04 Order name: Magnesium; Complete Time: 23:07 [facility] 08/09 22:04 Order name: NT PRO-BNP; Complete Time: 23:07 [facility] 08/09 22:04 Order name: PT-INR; Complete Time: 23:07 [facility] 08/09 22:04 Order name: Troponin (emerg Dept Use Only); Complete Time: 23:07 [facility] 08/09 22:04 Order name: XRAY Chest (1 view) [facility] 08/09 22:04 Order name: EKG; Complete Time: 22:05 [facility] 08/09 22:04 Order name: Cardiac monitoring; Complete Time: 22:14 [facility] 08/09 22:09 Order name: Lipase [facility] 08/09 22:09 Order name: Lipase; Complete Time: 23:07 [facility] 08/10 01:09 Order name: Troponin (emerg Dept Use Only); Complete Time: 02:14 [facility] 08/09 22:04 Order name: EKG - Nurse/Tech; Complete Time: 22:26 [facility] 08/09 22:04 Order name: IV Saline Lock; Complete Time: 22:14 [facility] 08/09 22:04 Order name: Labs collected and sent; Complete Time: 22:14 [facility] 08/09 22:04 Order name: O2 Per Protocol; Complete Time: 22:14 [facility] 08/09 22:04 Order name: O2 Sat Monitoring; Complete Time: 22:14 [facility] Administered Medications: 08/09 22:25 Drug: Aspirin Chewable Tablet 324 mg Route: PO; cc4 08/10 02:33 Follow up: Response: No adverse reaction; Pain is decreased cc4 Disposition Summary: 08/10/21 02:23 Discharge Ordered Location: Home [facility] Problem: an acute exacerbation [facility] Symptoms: have improved [facility] Condition: Stable [facility] Diagnosis - Chest pain, unspecified [facility] Followup: [facility] - With: Private Physician - When: 1 - 2 days - Reason: Worsening of condition, Recheck today's complaints, Continuance of care, Re-evaluation by your physician Followup: [facility] - With: Ke Hernandez MD - When: 1 - 2 days - Reason: Worsening of condition, Recheck today's complaints, Continuance of care, Re-evaluation by your physician Discharge Instructions: - Discharge Summary Sheet [facility] - Nonspecific Chest Pain, Adult, [id number] [facility] Forms: - Medication Reconciliation Form [facility] - Thank You Letter [facility] - Antibiotic Education [facility] - Prescription Opioid Use [facility] Signatures: Dispatcher [employer] Estuardo Berumen MD MD 7 Mary Anne Fung RN RN ld1 Eunice Carey RN RN cc4
--- NOTE | 2021-08-10 02:24 | ER ---
Nurse's Notes [facility] Name: Isiah Hightower Age: 50 yrs Sex: Male : 1970 Arrival Date: 08/09/2021 Time: : Bed 20 Private MD: Diagnosis: Chest pain, unspecified Presentation: 08/09 21:33 Chief complaint: Patient states: after I ate dinner I began having pressure and ld1 tightness on the left side of my chest. Coronavirus screen: At this time, the client does not indicate any symptoms associated with coronavirus-19. Ebola Screen: No symptoms or risks identified at this time. Initial Sepsis Screen: Does the patient meet any 2 criteria? No. Patient's initial sepsis screen is negative. Does the patient have a suspected source of infection? No. Patient's initial sepsis screen is negative. Risk Assessment: Do you want to hurt yourself or someone else? Patient reports no desire to harm self or others. Onset of symptoms was August 09, 2021. 21:33 Method Of Arrival: Wheelchair ld1 21:33 Acuity: AMIRAH 3 ld1 Triage Assessment: 21:34 General: Appears in no apparent distress. comfortable, Behavior is cooperative, ld1 appropriate for age, anxious. Pain: Complains of pain in anterior aspect of left upper chest and left breast Pain does not radiate. Pain currently is 4 out of 10 on a pain scale. Quality of pain is described as pressure, throbbing, Pain began 2 hours ago. Is continuous. EENT: No signs and/or symptoms were reported regarding the EENT system. Neuro: Level of Consciousness is awake, alert, obeys commands, Oriented to person, place, time, situation, Appropriate for age. Cardiovascular: Capillary refill < 3 seconds Patient's skin is warm and dry. Respiratory: Airway is patent Respiratory effort is even, unlabored, Respiratory pattern is regular, symmetrical. GI: Abdomen is round non-distended. Musculoskeletal: Reports pain in chest. Historical: - Allergies: 21:34 Hydrocodone-Acetaminophen; ld1 - Home Meds: 21:34 citalopram 20 mg tab 1 tab once daily [Active]; amlodipine 5 mg tab 1 tab once daily ld1 [Active]; Eliquis 5 mg Oral tab 1 tab 2 times per day [Active]; - PMHx: 21:34 chronic back pain; Hypertensive disorder; PE; ld1 - PSHx: 21:34 None; ld1 - Immunization history:: Adult Immunizations up to date, Client reports receiving the 2nd dose of the Covid vaccine. - Social history:: Smoking status: Patient denies any tobacco usage or history of. Patient/guardian denies using alcohol, street drugs. Screenin:04 Abuse screen: Denies threats or abuse. Nutritional screening: No deficits noted. cc4 Tuberculosis screening: No symptoms or risk factors identified. Fall Risk None identified. Assessment: 22:04 General: Appears distressed, Behavior is cooperative, anxious. Pain: Complains of pain cc4 in anterior aspect of left upper chest Pain does not radiate. Pain currently is 2 out of 10 on a pain scale. Quality of pain is described as pressure, Pain began 2 hours ago. Is continuous, Alleviated by nothing. Neuro: No deficits noted. Level of Consciousness is awake, alert, obeys commands, Oriented to person, place, time, situation. 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 Rhythm is sinus rhythm. Respiratory: No deficits noted. Airway is patent Respiratory effort is even, unlabored, Respiratory pattern is regular, symmetrical, Denies cough, shortness of breath. GI: Reports "Belching" x 2 [employer]/STEWARDESS with decrease in chest pressure. : No signs and/or symptoms were reported regarding the genitourinary system. EENT: No signs and/or symptoms were reported regarding the EENT system. Derm: No deficits noted. Skin is intact, is healthy with good turgor, Reports having heart cath yesterday with no bruising/edema noted right groin insertion site. Musculoskeletal: No deficits noted. Capillary refill < 3 seconds, Range of motion: intact in all extremities. 22:05 Reassessment: EKG done; # 20 g angiocath inserted right AC x 1 attempt \\T\\ converted to cc4 saline lock with blood drawn \\T\\ sent to lab, tol. ybarra. 22:25 Reassessment: ASA 324 mg given po as ordered; sinus bradycardia with no ventricular cc4 ectopy noted ; VR 58. 08/10 01:15 Reassessment: No changes from previously documented assessment. Blood drawn for repeat cc4 troponin \\T\\ sent to lab; reports feeling better. 02:33 Reassessment: No changes from previously documented assessment. cc4 Vital Signs: 08/09 21:33 BP 127 / 97; Pulse 63; Resp 18; Temp 98.1(O); Pulse Ox 99% on R/A; Weight 102.97 kg; ld1 Height 6 ft. 1 in. (185.42 cm); Pain 4/10; 23:02 BP 115 / 79; Pulse 60; Resp 20 S; Pulse Ox 96% on R/A; cc4 08/10 02:33 BP 126 / 74; Pulse 66; Resp 17; Pulse Ox 98% on R/A; cc4 08/09 21:33 Body Mass Index 29.95 (102.97 kg, 185.42 cm) ld1 ED Course: 08/09 21:27 Patient arrived in ED. cf2 21:34 Triage completed. ld1 21:34 Arm band placed on right wrist. ld1 21:42 Eunice Carey, ORTEGA is Primary Nurse. cc4 21:47 Estuardo Quinones MD is Attending Physician. 7 22:04 janitorial tech on. Pulse ox on. NIBP on. cc4 22:04 Patient has correct armband on for positive identification. Bed in low position. Call cc4 light in reach. Side rails up X 1. 22:04 Patient maintains SpO2 saturation greater than 95% on room air. cc4 22:25 XRAY Chest (1 view) In Process Unspecified. EDMS 22:27 Basic Metabolic Panel Sent. cc4 22:27 LFT's Sent. cc4 22:27 Magnesium Sent. cc4 22:27 NT PRO-BNP Sent. cc4 22:27 Troponin (emerg Dept Use Only) Sent. cc4 22:27 Lipase Sent. cc4 22:27 Lipase Sent. cc4 08/10 02:22 Ke Hernandez MD is Referral Physician. [facility] 02:33 No provider procedures requiring assistance completed. cc4 02:33 IV discontinued, intact, bleeding controlled, No redness/swelling at site. Pressure cc4 dressing applied. Administered Medications: 08/09 22:25 Drug: Aspirin Chewable Tablet 324 mg Route: PO; cc4 08/10 02:33 Follow up: Response: No adverse reaction; Pain is decreased cc4 Outcome: 02:23 Discharge ordered by . treva 02:33 Discharged to home ambulatory. cc4 02:33 Condition: improved 02:33 Discharge instructions given to patient, Instructed on discharge instructions, follow up and referral plans. Demonstrated understanding of instructions, follow-up care. 03:10 Patient left the ED. cc4 Signatures: Dispatcher [employer] EDMS Rodney Webster cf2 Estuardo Quinones MD MD 7 Mary Anne Fung, ORTEGA RN ld1 Eunice Carey RN RN cc4
[2021-08-10 03:16] VITALS: TEMP 98.1
[2021-08-10 03:19] VITALS: BP 126/74; O2SAT 98
--- NOTE | 2021-08-10 11:12 | RAD REPORT ---
EXAM DESCRIPTION: RAD - Chest Single View - 08/09/2021 10:25 pm CLINICAL HISTORY: CHEST PAIN Chest pain. COMPARISON: Chest Single View dated 08/06/2021; Chest Single View dated 07/30/2021; Chest Single View dated 07/26/2021; Chest Pa And Lat (2 Views) dated 04/26/2020 FINDINGS: Portable technique limits examination quality. The lungs are grossly clear. The heart is normal in size. No displaced fractures. IMPRESSION: No acute intrathoracic process suspected.
--- NOTE | 2021-08-14 08:18 | EKG ---
Test Date: 2021-08-09 Test Time: 21:43:59 Chainstitch Tunnel Elastic Operator: TRACE MEASUREMENT RESULTS: Intervals: Rate: 61 MS: 186 QRSD: 104 QT: 382 QTc: 384 [place]: P: 70 MS: 186 QRS: 7 T: 42 INTERPRETIVE STATEMENTS: Normal sinus rhythm Possible Left atrial enlargement Borderline ECG Compared to ECG 08/06/2021 20:51:18 Incomplete right bundle-branch block no longer present Electronically Signed On 08-14-21 08:04:57 DIRECT MARKETING MANAGER by Ke Hernandez
== END 2021-08-10 03:10 | disposition home or self-care (01) ==
LOC: ER 21:25
DX: R07.9 Chest pain, unspecified (principal); I10 Essential (primary) hypertension; Z86.711 Personal history of pulmonary embolism; Z79.01 Long term (current) use of anticoagulants; Z88.5 Allergy status to narcotic agent
CPT/HCPCS: 36415; 71045; 80048; 80076; 83690; 83735; 83880; 84484; 85025; 85610; 93005; 99285

== ENCOUNTER 2021-11-04 09:04 | Emergency (ER) | payer OTHER ==
--- OUTSIDE RECORDS SUMMARY | 2021-11-04 09:08 | XMS REPORT | Continuity of Care Document ---
:1970 Author Organization [facility] t Address [address] [place] [address] Care Team Providers Name Role Phone Pcp, Does Not Have A Primary Care Physician SHELTON OQUENDO Attending Clinician Unavailable Shelton Oquendo MD Attending Clinician Amelia MCKEON Attending Clinician Unavailable Amelia MCKENO Attending Clinician Unavailable Amelia Mckeon MD Attending Clinician Jason CARTER Attending Clinician JASON Attending Clinician Unavailable LAB90 Attending Clinician Unavailable Doctor Unassigned, Name Attending Clinician Unavailable Rose Marie LUI Attending Clinician Unavailable Payers Payer Name Policy Type Policy Number Effective Date Expiration Date [facility] [place] [address] [id number] 2018 JUPITER 2018 00:00:00 [facility] [id number] 2020 00:00:00 Problems Condition Condition Condition Status Onset Resolution Last Treating Co mments Source Name Details Category Date Date Treatment Clinician Date Chest pain Chest pain Disease Active 2020-09 U preethi 09-23 ity of 00:00: [place] [facility] Plantar Plantar Disease Active 2018- Thao fasciitis, fasciitis, 06-17 Se ybold bilateral bilateral 00:00: 00 Low HDL Low HDL Disease Active Thao (under 40) (under 40) Se ybold Prediabete Prediabete Disease Active Joyce jasso s Seybold Smoker Smoker Disease Active Thao [...] Active Univers ALLERGIE Class ity of S [facility] Social History Social Habit Start Date Stop Date Quantity Comments Source History SDOH Thao Stringero ld Alcohol Frequency History SDOH Thao Petersen ld Alcohol Std Drinks History SDOH Thao Stringero sera Alcohol Binge Exposure to Not sure University SARS-CoV-2 (event) [facility] Alcohol intake 2021-10-28 2021-10-28 0 /d Thao Hauserkayla bold 00:00:00 00:00:00 Cigarettes smoked 2017-06-22 2017-06-22 Thao Ann current (pack per 00:00:00 00:00:00 day) - Reported Cigarette 2017-06-22 2017-06-22 Thaobuddy Stringerreynold pack-years 00:00:00 00:00:00 Tobacco use and 2017-06-22 2017-06-22 Smokeless Thao Hauser ybreynold exposure 00:00:00 00:00:00 tobacco non-user History of tobacco 2016-05-22 Cigarette Smoker Thaobuddy Ann use 00:00:00 Alcohol Comment 2015-07-11 2015-07-11 rare Thao Hauser ybreynold 00:00:00 00:00:00 [birth year] Thao Hauser ybreynold 00:00:00 00:00:00 Smoking Status Start Date Stop Date Source [facility] Ex-smoker 2017-06-22 00:00:00 2017-06-22 00:00:00 Thao hawkins Medications Ordered Filled Start Stop Current Ordering Indication Dosage Frequency Signature Comments Components Source Medication Medication Date Date Medication? Clinician (SIG) Name Name Aspirin 81 Yes 81mg Take 81 mg K elsey MG oral 2-07 by mouth Seybold Tablet 08:05: daily Delayed 29 Response Citalopram Yes [id number] 20mg Take 1 K elsey Hydrobromid 2-07 tablet (20 Se ybold e 20 MG 00:00: mg total) oral Tablet 00 by mouth daily Cholecalcif 2020-09 Yes Thao olga lidia 2-31 Seybold (Vitamin 00:00: D3) 50 MCG 00 (1999) oral Tablet Aspirin 81 2020-09 Yes 81mg Take 81 mg K elsey MG oral 1-22 by mouth Seybold Tablet 13:05: daily Delayed 57 Response Aspirin 81 2020-09 Yes 81mg Take 81 mg K elsey MG oral 1-22 by mouth Seybold Tablet 13:05: daily Delayed 57 Response Citalopram 2020-09 Yes [id number] 20mg Take 1 K elsey Hydrobromid 1-16 tablet (20 Se ybold e 20 MG 00:00: mg total) oral Tablet 00 by mouth daily Citalopram 2020-09 Yes [id number] 20mg Take 1 K elsey Hydrobromid 1-16 tablet (20 Se ybold e 20 MG 00:00: mg total) oral Tablet 00 by mouth daily Citalopram 2020-09 Yes [id number] 20mg Take 1 K elsey Hydrobromid 1-16 tablet (20 Se ybold e 20 MG 00:00: mg total) oral Tablet 00 by mouth daily Citalopram 2020-09- No [id number] 20mg Take 1 Thao Hydrobromid 1-16 02-07 tablet (20 S eybold e 20 MG 00:00: 00:00 mg total) oral Tablet 00 :00 by mouth daily Apixaban 2020-09 Yes [id number] 5mg Take 1 K elsey MG oral 1-08 tablet (5 Seybold Tablet 00:00: mg total) 00 by mouth 2 times daily Apixaban 2020-09 Yes [id number] 5mg Take 1 K elsey MG oral 1-08 tablet (5 Seybold Tablet 00:00: mg total) 00 by mouth 2 times daily Apixaban 2020-09 Yes [id number] 5mg Take 1 K elsey MG oral 1-08 tablet (5 Seybold Tablet 00:00: mg total) 00 by mouth 2 times daily Apixaban 2020-09 Yes [id number] 5mg Take 1 K elsey MG oral 1-08 tablet (5 Seybold Tablet 00:00: mg total) 00 by mouth 2 times daily Apixaban 2020-09 Yes [id number] 5mg Take 1 K elsey MG oral 1-08 tablet (5 Seybold Tablet 00:00: mg total) 00 by mouth 2 times daily Amlodipine 2020-09 Yes Thao Besylate 5 1-06 Seybold MG oral 00:00: Tablet 00 Folic Acid 2020-09 Yes Thao 1 MG oral 1-06 Seybold tablet 00:00: 00 Folic Acid 2020-09 Yes Thao 1 MG oral 1-06 Seybold tablet 00:00: 00 Folic Acid 2020-09 Yes Thao 1 MG oral 1-06 Seybold tablet 00:00: 00 Folic Acid 2020-09 Yes Thao 1 MG oral 1-06 Seybold tablet 00:00: 00 Amlodipine 2020-09 Yes Thao Besylate 5 1-06 Seybold MG oral 00:00: Tablet 00 Folic Acid 2020-09 Yes Thao 1 MG oral 1-06 Seybold tablet 00:00: 00 Amlodipine 2020-09- No Thao Besylate 5 1-06 11-22 Seybold MG oral 00:00: 00:00 Tablet 00 :00 cyclobenzap Yes TAKE ONE Un trace rine 10 mg 6-28 TABLET BY ity of tablet 00:00: MOUTH AT [place] 00 BEDTIME Medical A MUSCLE Branch RELAXANT Methyl Yes APPLY Univers Salicylate- 6-28 SMALL ity of Menthol 00:00: AMOUNT TO [place] 15-10 % 00 THE SKIN Medical Crea EVERY 12 Branch HOURS FOR RELIEF OF MUSCLE PAIN Cyclobenzap Yes [id number] 5mg [id number] Take 1 Thao rine HCl 5 6-08 [id number] tablet (5 Seybold MG oral 00:00: 3D mg total) Tablet 00 by mouth 3 times daily as needed for muscle spasms Cyclobenzap 0 Yes [id number] 5mg Q.[id number] Take 1 Thao rine HCl 5 6-08 [id number] tablet (5 Seybold MG oral 00:00: 3D mg total) Tablet 00 by mouth 3 times daily as needed for muscle spasms Cyclobenzap 0 Yes [id number] 5mg Q.[id number] Take 1 Thao rine HCl 5 6-08 [id number] tablet (5 Seybold MG oral 00:00: 3D mg total) Tablet 00 by mouth 3 times daily as needed for muscle spasms Cyclobenzap 2020-0 Yes [id number] 5mg Q.[id number] Take 1 Thao rine HCl 5 6-08 [id number] tablet (5 Seybold MG oral 00:00: 3D mg total) Tablet 00 by mouth 3 times daily as needed for muscle spasms Meloxicam 2020-0 Yes [id number] 15mg Take 1 K elsey 15 MG oral 6-08 tablet (15 Sey bold Tablet 00:00: mg total) 00 by mouth daily Cyclobenzap 2020-0 Yes [id number] 5mg [id number] Take 1 Thao rine HCl 5 6-08 [id number] tablet (5 Seybold MG oral 00:00: 3D mg total) Tablet 00 by mouth 3 times daily as needed for muscle spasms Cyclobenzap 2020-0 Yes [id number] 5mg [id number] Take 1 Thao rine HCl 5 6-08 [id number] tablet (5 Seybold MG oral 00:00: 3D mg total) Tablet 00 by mouth 3 times daily as needed for muscle spasms meloxicam 2020-0 Yes 15mg Take 15 mg Un trace 15 mg 6-08 by mouth. ity of tablet 00:00: [address] Meloxicam 2020-0 1- No [id number] 15mg Take 1 Thao 15 MG oral 6-08 11-08 tablet (15 Se ybold Tablet 00:00: 00:00 mg total) 00 :00 by mouth daily Immunizations Ordered Immunization Filled Immunization Date Status Commen ts Source Name Name Influenza Virus 2021-07-02 Completed Thao Se ybold Vaccine, Intradermal, 00:00:00 18-64 Yrs Influenza Virus 2021-07-02 Completed Thao Se ybold Vaccine, Intradermal, 00:00:00 18-64 Yrs Influenza Virus 2021-07-02 Completed Thao Se ybold Vaccine, Intradermal, 00:00:00 18-64 Yrs Influenza Virus 2021-07-02 Completed Thao Se ybold Vaccine, Intradermal, 00:00:00 18-64 Yrs Influenza Virus 2021-07-02 Completed Thao Se ybold Vaccine, Intradermal, 00:00:00 18-64 Yrs Influenza Virus 2021-07-02 Completed Thao Hauser ybold Vaccine, Intradermal, 00:00:00 18-64 Yrs Covid-19 Vaccine 2020-11-25 Completed Thao hawkins (Moderna), Mrna-lnp, 00:00:00 Jeremy Protein, Pf, 100 Mcg/0.5ml,IM Covid-19 Vaccine 2020-11-25 Completed Thao huffbold (Moderna), Mrna-lnp, 00:00:00 Jeremy Protein, Pf, 100 Mcg/0.5ml,IM Covid-19 Vaccine 2020-11-25 Completed Thao Jasso eybold (Moderna), Mrna-lnp, 00:00:00 Jeremy Protein, Pf, 100 Mcg/0.5ml,IM Covid-19 Vaccine 2020-11-25 Completed Thao huffbold (Moderna), Mrna-lnp, 00:00:00 Jeremy Protein, Pf, 100 Mcg/0.5ml,IM Covid-19 Vaccine 2020-11-25 Completed Thao huffbold (Moderna), Mrna-lnp, 00:00:00 Jeremy Protein, Pf, 100 Mcg/0.5ml,IM Covid-19 Vaccine 2020-11-25 Completed Thao huffbold (Moderna), Mrna-lnp, 00:00:00 Jeremy Protein, Pf, 100 Mcg/0.5ml,IM Covid-19 Vaccine 2020-11-25 Completed Thao hawkins Moderna (Spikevax), 00:00:00 Mrna-lnp, Jeremy Protein, Pf Covid-19 Vaccine 2020-11-25 Completed Thao huffbold Moderna (Spikevax), 00:00:00 Mrna-lnp, Jeremy Protein, Pf Covid-19 Vaccine 2020-11-25 Completed Thao huffbold (Moderna), Mrna-lnp, 00:00:00 Jeremy Protein, Pf, 100 Mcg/0.5ml,IM Covid-19 Vaccine 2020-11-25 Completed Thao Jasso eybold (Moderna), Mrna-lnp, 00:00:00 Jeremy Protein, Pf, 100 Mcg/0.5ml,IM Covid-19 Vaccine 2020-11-25 Completed Thao huffbold (Moderna), Mrna-lnp, 00:00:00 Jeremy Protein, Pf, 100 Mcg/0.5ml,IM Covid-19 Vaccine 2020-11-25 Completed Thao huffbold (Moderna), Mrna-lnp, 00:00:00 Jeremy Protein, Pf, 100 Mcg/0.5ml,IM SARS-COV-2 COVID-19 2020-11-25 Completed Unive rsity of MODERNA VACCINE 00:00:00 [facility] SARS-COV-2 COVID-19 2020-11-25 Completed Unive rsity of MODERNA VACCINE 00:00:00 [facility] Covid-19 Vaccine 2020-10-28 Completed Thao huffbold (Moderna), Mrna-lnp, 00:00:00 Jeremy Protein, Pf, 100 Mcg/0.5ml,IM Covid-19 Vaccine 2020-10-28 Completed Thao huffbold (Moderna), Mrna-lnp, 00:00:00 Jeremy Protein, Pf, 100 Mcg/0.5ml,IM Covid-19 Vaccine 2020-10-28 Completed Thao Jasso eybold (Moderna), Mrna-lnp, 00:00:00 Jeremy Protein, Pf, 100 Mcg/0.5ml,IM Covid-19 Vaccine 2020-10-28 Completed Thao Jasso eybold (Moderna), Mrna-lnp, 00:00:00 Jeremy Protein, Pf, 100 Mcg/0.5ml,IM Covid-19 Vaccine 2020-10-28 Completed Thao Jasso eybold (Moderna), Mrna-lnp, 00:00:00 Jeremy Protein, Pf, 100 Mcg/0.5ml,IM Covid-19 Vaccine 2020-10-28 Completed Thao Jasso eybold (Moderna), Mrna-lnp, 00:00:00 Jeremy Protein, Pf, 100 Mcg/0.5ml,IM Covid-19 Vaccine 2020-10-28 Completed Thao huffbold Moderna (Spikevax), 00:00:00 Mrna-lnp, Jeremy Protein, Pf Covid-19 Vaccine 2020-10-28 Completed Thao S eybold Moderna (Spikevax), 00:00:00 Mrna-lnp, Jeremy Protein, Pf Covid-19 Vaccine 2020-10-28 Completed Thao Jasso eybold (Moderna), Mrna-lnp, 00:00:00 Jeremy Protein, Pf, 100 Mcg/0.5ml,IM Covid-19 Vaccine 2020-10-28 Completed Thao Jasso eybold (Moderna), Mrna-lnp, 00:00:00 Jeremy Protein, Pf, 100 Mcg/0.5ml,IM Covid-19 Vaccine 2020-10-28 Completed Thao Jasso eybold (Moderna), Mrna-lnp, 00:00:00 eJremy Protein, Pf, 100 Mcg/0.5ml,IM Covid-19 Vaccine 2020-10-28 Completed Thao Jasso eybold (Moderna), Mrna-lnp, 00:00:00 Jeremy Protein, Pf, 100 Mcg/0.5ml,IM SARS-COV-2 COVID-19 2020-10-28 Completed Unive rsity of MODERNA VACCINE 00:00:00 [facility] SARS-COV-2 COVID-19 2020-10-28 Completed Unive rsity of MODERNA VACCINE 00:00:00 [facility] Influenza Virus 2020-07-12 Completed [...] Time Observation Value Comments Source Systolic blood 2021-10-28 14:01:00 118 mm[Hg] Thao Hauserybreynold pressure Diastolic blood 2021-10-28 14:01:00 71 mm[Hg] Kelse y Seybold pressure Heart rate 2021-10-28 14:01:00 70 /min Thao huffbosera Body temperature 2021-10-28 14:01:00 36.39 Moriah Llvuia ey Seybold Respiratory rate 2021-10-28 14:01:00 14 /min Lluvia daria Hauserybreynold Body height 2021-10-28 14:01:00 185.4 cm Thao huffbosera Body weight 2021-10-28 14:01:00 107.049 kg Thao hawkins BMI 2021-10-28 14:01:00 31.14 kg/m2 Thao hawkins Systolic blood 2021-08-28 22:29:00 125 mm[Hg] Univer [facility]ity of [facility] Diastolic blood 2021-08-28 22:29:00 72 mm[Hg] Unive rsity of [facility] Heart rate 2021-08-28 22:29:00 59 /min [facility] Body temperature 2021-08-28 22:29:00 36.61 [facility] 2021-08-28 22:29:00 18 /[facility] Body height 2021-08-28 22:29:00 185.4 cm Universi ty [facility] Body weight 2021-08-28 22:29:00 102.694 kg Universi ty [facility] BMI 2021-08-28 22:29:00 29.87 kg/m2 [facility] Oxygen saturation in 2021-08-28 22:29:00 97 /min [facility] Arterial blood by [facility] Pulse oximetry Branch Systolic blood 2021-08-26 14:00:00 116 mm[Hg] Thao ybreynold pressure Diastolic blood 2021-08-26 14:00:00 65 mm[Hg] Mauricese y Seybreynold pressure Body temperature 2021-08-26 14:00:00 36.39 Moriah Lluvia daria Seybold Respiratory rate 2021-08-26 14:00:00 14 /min Lluvia ey Seybold Body height 2021-08-26 14:00:00 185.4 cm Thao S eybold Body weight 2021-08-26 14:00:00 102.513 kg Thao S eybold BMI 2021-08-26 14:00:00 29.82 kg/m2 Thao S eybold Systolic blood 2021-08-12 19:08:00 125 mm[Hg] Thao Seybold pressure Diastolic blood 2021-08-12 19:08:00 72 mm[Hg] Kelse y Seybold pressure Heart rate 2021-08-12 19:08:00 73 /min Thao S eybold Body temperature 2021-08-12 19:08:00 36.5 Moriah Lluvia ey Seybold Respiratory rate 2021-08-12 19:08:00 16 /min Lluvia ey Seybold Body height 2021-08-12 19:08:00 185.4 cm Thao S eybold Body weight 2021-08-12 19:08:00 100.699 kg Thao S eybold BMI 2021-08-12 19:08:00 29.29 kg/m2 Thao S eybold Oxygen saturation in 2021-08-12 19:08:00 97 /min Thao Seybold Arterial blood by Pulse [...] Body weight 2021-07-29 16:14:00 102.967 kg Thao Jasso eybold BMI 2021-07-29 16:14:00 29.95 kg/m2 Thao S eybold Systolic blood 2021-07-19 [...] Body weight 2021-07-19 18:19:00 105.688 kg Thao Jasso eybold BMI 2021-07-19 18:19:00 30.74 kg/m2 Thao S eybold Systolic blood 2021-07-19 18:19:00 124 mm[Hg] Thao Seybold pressure Diastolic blood 2021-07-19 18:19:00 76 mm[Hg] Kelse y Seybold pressure Heart rate 2021-07-19 18:19:00 73 /min Thao Jasso eybold Body temperature 2021-07-19 18:19:00 36.89 Moriah Lluvia ey Seybold Respiratory rate 2021-07-19 18:19:00 16 /min Lluvia ey Seybold Body height 2021-07-19 18:19:00 185.4 cm Thao Jasso eybold Body weight 2021-07-19 18:19:00 105.688 kg Thao Jasso eybold BMI 2021-07-19 18:19:00 30.74 kg/m2 Thao Jasso eybold Procedures Procedure Date / Time Performed Performing Clinician [facility] e ASSIGNMENT OF BENEFITS 2021-05-22 19:45:33 Doctor Unassigned, No [facility] Encounters Start End Encounter Admission Attending Care Care Encounter Source Date/Time Date/Time Type Type Clinicians Facility Department ID 2021-11-04 2021-11-04 Outpatient THAO OQUENDO [id number] Thao 08:30:00 08:30:00 APRIL Hauserybol d 2021-10-28 2021-10-28 Office Yakov Oquendo [id number] Thao 08:00:00 08:15:00 Visit April Nguyen [id number] Se ybold Somogyi [id number] 2021-08-28 2021-08-28 Outpatient R JELLY MCKEON [facility] [id number] [facility] 16:20:00 16:54:33 [facility] 2021-08-28 2021-08-28 Office Mike [facility] [id number] [facility] 16:11:00 16:31:00 [id number] [id number] Riky CHAUDHRY [id number] Nv dical [address] 2021-08-26 2021-08-26 Office Yakov Oquendo [id number] Thao 08:00:00 08:30:00 Visit April Nguyen [id number] Se ybold Somogyi [id number] 2021-08-12 2021-08-12 Office THEODORA Gomez [id number] Thao 13:00:00 13:30:00 Visit Haider [id number] Se ybold [id number] 2021-08-12 2021-08-12 Outpatient THAO GOMEZ [id number] Thao 00:00:00 00:00:00 HAIDER Hauserybol d 2021-08-09 2021-08-09 Office Yakov Oquendo [id number] Thao 10:30:00 11:00:00 Visit April Nguyen [id number] Se ybold Somogyi [id number] 2021-08-09 2021-08-09 Office Yakov Oquendo [id number] 10:30:00 11:00:00 Visit April Nguyen [id number] Somogyi [id number] 2021-08-08 2021-08-08 Outpatient THAO OQUENDO [id number] Thao 00:00:00 00:00:00 APRIL Seybol d 2021-08-06 2021-08-06 Outpatient THAO OQUENDO [id number] Thao 00:00:00 00:00:00 APRIL Seybol d 2021-08-01 2021-08-01 Outpatient THAO OQUENDO [id number] Thao 00:00:00 00:00:00 APRIL Seybol d 2021-07-29 2021-07-29 Office [place], Yakov [id number] 10:12:53 10:42:53 Visit April Nguyen [id number] Somogyi [id number] 2021-07-29 2021-07-29 Office Yakov Oquendo [id number] Thao 10:12:53 10:42:53 Visit April Nguyen [id number] Se ybold Somogyi [id number] 2021-07-26 2021-07-26 Outpatient THAO OQUENDO [id number] Thao 09:00:00 09:00:00 APRIL Seybol d 2021-07-26 2021-07-26 Outpatient THAO OQUENDO [id number] Thao 00:00:00 00:00:00 APRIL Seybol d 2021-07-25 2021-07-25 Outpatient THAO OQUENDO [id number] Thao 00:00:00 00:00:00 APRIL Seybol d 2021-07-19 2021-07-19 Outpatient LAB90 THAO TAN [id number] Thao 14:15:00 14:15:00 Seybol d 2021-07-19 2021-07-19 Office Yakov Oquendo [id number] 13:16:34 13:46:34 Visit April Nguyen [id number] Somogyi [id number] 2021-07-19 2021-07-19 Office Yakov Oquendo [id number] Thao 13:16:34 13:46:34 Visit April Nguyen [id number] Se ybold Somogyi [id number] 2021-07-10 2021-07-10 Outpatient R [facility]KE [facility] [id number] Univers 19:30:00 19:30:00 MIKE [facility] 2021-07-08 2021-07-08 Outpatient R MIKE [facility] [id number] Univers 16:15:00 16:15:00 MIKE [facility] 2021-05-22 2021-05-22 Orders Doctor RUDY [id number] Univers 00:00:00 00:00:00 Only Unassigned, LEYLA [id number] ity of [facility] [id number] Tristan as [id number] [address] 2021-04-30 2021-04-30 Outpatient THAO LUI [id number] Thao 00:00:00 00:00:00 ROSALIO lunsford 2021-04-12 2021-04-12 Outpatient THAO LUI [id number] Thao 00:00:00 00:00:00 ROSALIO lunsford Results This patient has no known results.
[2021-11-04 10:24] LABS: Absolute Lymphocytes (CBC) 1.4 K/uL (0.7-4.9); Hematocrit 46.4 % (39.6-49.0); Lymphocytes % 20.6 % (15.3-44.8); MPV 8.9 fL (7.6-11.3); RBC Red Blood Cell Count 5.07 M/uL (4.33-5.43)
[2021-11-04 10:25] LABS: Protime INR 1.17
--- NOTE | 2021-11-04 10:29 | RAD REPORT ---
EXAM DESCRIPTION: RAD - Chest Single View - 11/04/2021 10:22 am CLINICAL HISTORY: CHEST PAIN COMPARISON: Chest Single View dated 08/09/2021; Chest Single View dated 08/06/2021; Chest Single Vie w dated 07/30/2021; Chest Single View dated 07/26/2021 FINDINGS: Lines: None. Lungs: No evidence of edema or pneumonia. Pleural: No significant pleural effusions or pneumothorax. Cardiac: The heart size is within normal limits. Bones: No acute fractures. Other: IMPRESSION: No acute cardiopulmonary disease.
[2021-11-04 10:41] LABS: Magnesium 2.3 mg/dL (1.8-2.4); Troponin High Sensitivity 6.1 pg/mL (<58.9)
--- NOTE | 2021-11-04 12:14 | ER ---
Nurse's Notes [facility] Name: Isiah Hightower Age: 51 yrs Sex: Male : 1970 Arrival Date: 11/04/2021 Time: 09:07 Bed 13 Private MD: Diagnosis: Essential (primary) hypertension;Chest pain, unspecified Presentation: 11/04 09:15 Chief complaint: Patient states: L sided CP since Thursday. BP was 169/84 Thursday. No ll1 cough or fever. Coronavirus screen: Vaccine status: Patient reports receiving the 2nd dose of the covid vaccine. Client denies travel out of the [place] in the last 14 days. At this time, the client does not indicate any symptoms associated with coronavirus-19. Ebola Screen: Patient denies travel to an Ebola-affected area in the 21 days before illness onset. Initial Sepsis Screen: Does the patient meet any 2 criteria? No. Patient's initial sepsis screen is negative. Does the patient have a suspected source of infection? No. Patient's initial sepsis screen is negative. Risk Assessment: Do you want to hurt yourself or someone else? Patient reports no desire to harm self or others. Onset of symptoms was November 02, 2021. 09:15 Method Of Arrival: Ambulatory ll1 09:15 Acuity: AMIRAH 3 ll1 Historical: - Allergies: 09:14 Hydrocodone-Acetaminophen; ll1 - PMHx: 09:14 PE; Hypertensive disorder; chronic back pain; ll1 - PSHx: 09:14 None; ll1 - Immunization history:: Client reports receiving the 2nd dose of the Covid vaccine. - Social history:: Smoking status: Patient denies any tobacco usage or history of. - Family history:: not pertinent. - Hospitalizations: : No recent hospitalization is reported. Screenin:09 Abuse screen: Denies threats or abuse. Nutritional screening: No deficits noted. vg1 Tuberculosis screening: No symptoms or risk factors identified. Fall Risk No fall in past 12 months (0 pts). No secondary diagnosis (0 pts). IV access (20 points). Ambulatory Aid- None/Bed Rest/Nurse Assist (0 pts). Gait- Normal/Bed Rest/Wheelchair (0 pts) Mental Status- Oriented to own ability (0 pts). Total Petersen Fall Scale indicates No Risk (0-24 pts). Assessment: 09:50 General: Appears in no apparent distress. uncomfortable, Behavior is calm, cooperative. vg1 Pain: Complains of pain in anterior aspect of left upper chest Pain currently is 7 out of 10 on a pain scale. Pain began 11/02/2021. Pain: Pain does not radiate. Neuro: Level of Consciousness is awake, alert, obeys commands, Oriented to person, place, time, situation. Cardiovascular: Reports chest pain, Patient's skin is warm and dry. Respiratory: Airway is patent Respiratory effort is even, unlabored, Denies shortness of breath. GI: Patient currently denies nausea, vomiting. : No signs and/or symptoms were reported regarding the genitourinary system. EENT: No signs and/or symptoms were reported regarding the EENT system. Derm: Skin is intact, is healthy with good turgor. Musculoskeletal: Circulation, motion, and sensation intact. 11:26 Reassessment: Patient appears in no apparent distress at this time. Patient and/or vg1 family updated on plan of care and expected duration. Pain level reassessed. Patient is alert, oriented x 3, equal unlabored respirations, skin warm/dry/pink. Patient denies pain at this time. Vital Signs: 09:15 BP 167 / 97; Pulse 74; Resp 17; Temp 98.0; Pulse Ox 99% ; Weight 105.23 kg; Height 6 ll1 ft. 1 in. (185.42 cm); Pain 6/10; 09:52 BP 148 / 93; Pulse 62; Resp 16; Pulse Ox 98% ; vg1 10:00 BP 127 / 85; Pulse 65; Resp 15; Pulse Ox 97% on R/A; vg1 11:00 BP 120 / 80; Pulse 60; Resp 17; Pulse Ox 96% on R/A; vg1 09:15 Body Mass Index 30.61 (105.23 kg, 185.42 cm) ll1 ED Course: 09:07 Patient arrived in ED. am2 09:14 Arm band placed on Patient placed in an exam room, on a stretcher. ll1 09:16 Triage completed. ll1 09:52 Scotty Cruz MD is Attending Physician. rn 10:06 Ana Cristina Layne RN is Primary Nurse. vg1 10:07 Initial lab(s) drawn, by me, sent to lab. Inserted saline lock: 20 gauge in right vg1 antecubital area, using aseptic technique. Blood collected. 10:09 Patient has correct armband on for positive identification. Placed in gown. Bed in low vg1 position. Call light in reach. Side rails up X 1. lunchroom monitor on. Pulse ox on. NIBP on. 10:09 No provider procedures requiring assistance completed. vg1 10:22 XRAY Chest (1 view) In Process Unspecified. EDMS 12:49 IV discontinued, intact, bleeding controlled, No redness/swelling at site. Pressure iw dressing applied. Administered Medications: No medications were administered Outcome: 12:13 Discharge ordered by . rn 12:50 Discharged to home ambulatory. iw 12:50 Condition: good 12:50 Discharge instructions given to patient, Instructed on discharge instructions, follow up and referral plans. Demonstrated understanding of instructions, follow-up care. 12:50 Patient left the ED. iw Signatures: Dispatcher [employer] EDMS Jana Hinton RN RN iw Scotty Cruz MD MD rn Moreno, Amanda am2 Ana Cristina Layne RN RN vg1 Denise Marie RN RN ll1
--- NOTE | 2021-11-04 12:14 | EDPHYS ---
Physician Documentation [facility] Name: Isiah Hightower Age: 51 yrs Sex: Male : 1970 Arrival Date: 11/04/2021 Time: 09:07 Bed 13 Private MD: ED Physician Scotty Cruz HPI: 11/04 11:16 This 51 yrs old Male presents to ER via Ambulatory with complaints of High Blood rn Pressure, Chest Pain. 11:16 The patient has elevated blood pressure and discovered this at a physician's office. rn Onset: The symptoms/episode began/occurred today. Modifying factors:. Associated signs and symptoms: Pertinent positives: chest pain, Pertinent negatives: dyspnea, headache, lightheadedness, vomiting, weakness. Severity of symptoms: At its worst the blood pressure was moderate, in the emergency department the blood pressure is improved. The patient has experienced similar episodes in the past. The patient has been recently seen by a physician:. Patient reports left-sided chest pain, dull, intermittent. Check blood pressure and blood pressure was 160s over 90s. Made appointment with PCP who verified blood pressure and told to come to the emergency room. Patient states this feels entirely different from previous blood clot and has been compliant with his anticoagulation. Also denies any recent illness or fever. No cough. Denies pain with inspiration. No longer smoking. No trauma. Denies shortness of breath. States pain is already improving without intervention. Used to be on amlodipine but taken off by cardiology and told did not need it.. Historical: - Allergies: 09:14 Hydrocodone-Acetaminophen; ll1 - PMHx: 09:14 PE; Hypertensive disorder; chronic back pain; ll1 - PSHx: 09:14 None; ll1 - Immunization history:: Client reports receiving the 2nd dose of the Covid vaccine. - Social history:: Smoking status: Patient denies any tobacco usage or history of. - Family history:: not pertinent. - Hospitalizations: : No recent hospitalization is reported. ROS: 11:16 Constitutional: Negative for fever, chills, and weight loss, Eyes: Negative for injury, rn pain, redness, and discharge, Neck: Negative for injury, pain, and swelling, Cardiovascular: Negative for palpitations, and edema, Respiratory: Negative for shortness of breath, cough, wheezing Abdomen/GI: Negative for abdominal pain, nausea, vomiting, diarrhea, and constipation, Back: Negative for injury and pain, : Negative for injury, bleeding, discharge, and swelling, MS/Extremity: Negative for injury and deformity, Skin: Negative for injury, rash, and discoloration, Neuro: Negative for headache, weakness, numbness, tingling, and seizure. Exam: 11:16 Constitutional: This is a well developed, well nourished patient who is awake, alert, rn and in no acute distress. Head/Face: Normocephalic, atraumatic. Eyes: Periorbital areas with no swelling, redness, or edema. Cardiovascular: Regular rate and rhythm. No pulse deficits. Respiratory: No increased work of breathing, no retractions or nasal flaring. Abdomen/GI: Soft, non-tender Skin: Warm, dry MS/ Extremity: Pulses equal, no cyanosis. Neuro: Awake and alert, GCS 15 Vital Signs: 09:15 BP 167 / 97; Pulse 74; Resp 17; Temp 98.0; Pulse Ox 99% ; Weight 105.23 kg; Height 6 ll1 ft. 1 in. (185.42 cm); Pain 6/10; 09:52 BP 148 / 93; Pulse 62; Resp 16; Pulse Ox 98% ; vg1 10:00 BP 127 / 85; Pulse 65; Resp 15; Pulse Ox 97% on R/A; vg1 11:00 BP 120 / 80; Pulse 60; Resp 17; Pulse Ox 96% on R/A; vg1 09:15 Body Mass Index 30.61 (105.23 kg, 185.42 cm) ll1 MDM: 09:52 Patient medically screened. rn 12:11 Differential diagnosis: hypertensive crisis, Malignant HTN, DC, anxiety, pleurisy. Data rn reviewed: vital signs, nurses notes, lab test result(s), EKG, radiologic studies, plain films, and as a result, I will discharge patient. Counseling: I had a detailed discussion with the patient and/or guardian regarding: the historical points, exam findings, and any diagnostic results supporting the discharge/admit diagnosis, lab results, radiology results, the need for outpatient follow up, to return to the emergency department if symptoms worsen or persist or if there are any questions or concerns that arise at home. Counseling: I had a detailed discussion with the patient and/or guardian regarding: the presence of at least one elevated blood pressure reading (>120/80) during this emergency department visit. Response to treatment: the patient's symptoms have resolved after treatment, the patient's condition has returned to base line, the patient is now symptom free, and as a result, I will discharge patient. Special discussion: I have referred the patient to see his PCP for further evaluation of high blood pressure. I discussed with the patient/guardian in detail that at this point there is no indication for admission to the hospital. It is understood, however, that if the symptoms persist or worsen the patient needs to return immediately for re-evaluation. ED course: NO acute findings in bloodwork or CXR. Will dc home with pcp and cardiology f/u for BP management. BP currently 120/80 without intervention, will not prescribe medication at this time, especially as cardiology took him off of amlodipine somewhat recently. Pt had neg cath 2 months ago. . 11/04 10:03 Order name: Basic Metabolic Panel rn 11/04 10:03 Order name: CBC with Diff; Complete Time: :11/04 10:03 Order name: Magnesium 11/04 10:03 Order name: NT PRO-BNP; Complete Time: 12:11/04 10:03 Order name: PT-INR; Complete Time: :11/04 10:03 Order name: Troponin HS; Complete Time: 12:11/04 10:03 Order name: XRAY Chest (1 view); Complete Time: 10:11/04 10:03 Order name: EKG; Complete Time: 10:11/04 10:03 Order name: Cardiac monitoring; Complete Time: :11/04 10:03 Order name: EKG - Nurse/Tech; Complete Time: :11/04 10:03 Order name: IV Saline Lock; Complete Time: :11/04 10:03 Order name: Labs collected and sent; Complete Time: :11/04 10:05 Order name: Basic Metabolic Panel; Complete Time: 12: EDMS 11/04 10:05 Order name: Magnesium; Complete Time: 12: EDMS 11/04 10:03 Order name: O2 Per Protocol; Complete Time: 10:11/04 10:03 Order name: O2 Sat Monitoring; Complete Time: 10:10 rn Administered Medications: No medications were administered Disposition Summary: 11/04/21 12:13 Discharge Ordered Location: Home rn Problem: new rn Symptoms: have improved rn Condition: Stable rn Diagnosis - Essential (primary) hypertension rn - Chest pain, unspecified rn Followup: rn - With: Private Physician - When: As needed - Reason: Recheck today's complaints, Re-evaluation by your physician Discharge Instructions: - Discharge Summary Sheet rn - Nonspecific Chest Pain, Adult rn - Hypertension, Adult rn Forms: - Medication Reconciliation Form rn - Thank You Letter rn - Work release form iw - Antibiotic ortho rn - Prescription Opioid Use rn Signatures: Dispatcher [employer] Scotty Meza MD MD rn Lewis, Lynsay RN RN ll1
[2021-11-04 13:32] VITALS: TEMP 98
[2021-11-04 13:36] VITALS: BP 120/80; O2SAT 96
--- NOTE | 2021-11-05 10:19 | EKG ---
Test Date: 2021-11-04 Test Time: 09:26:04 Director Of Litigation: JHOAN MEASUREMENT RESULTS: Intervals: Rate: 65 ME: 188 QRSD: 100 QT: 378 QTc: 393 [place]: P: 71 ME: 188 QRS: -4 T: 47 INTERPRETIVE STATEMENTS: Normal sinus rhythm Incomplete right bundle branch block Borderline ECG Compared to ECG 08/09/2021 21:43:59 Incomplete right bundle-branch block now present Electronically Signed On 11-05-21 10:14:49 CRYSTAL CUTTER by Ke Hernandez
== END 2021-11-04 12:50 | disposition home or self-care (01) ==
LOC: ER 09:04
DX: R07.9 Chest pain, unspecified (principal); I10 Essential (primary) hypertension; Z88.5 Allergy status to narcotic agent
CPT/HCPCS: 36415; 71045; 80048; 83735; 83880; 84484; 85025; 85610; 93005; 99284